=== PATIENT | male | born 1970 | race Asian ===

== ENCOUNTER 2020-03-06 10:36 | Outpatient (REF) | payer BC, SELFPAY | END 2020-03-06 10:37 | disposition home or self-care (01) | LOC: HO.LAB 10:36 | PROVIDERS: Visit Provider Internal Medicine | DX: Z20.822 Contact with and (suspected) exposure to COVID-19 (principal) | CPT/HCPCS: 36415; C9803; U0003 ==

== ENCOUNTER 2020-03-16 19:24 | Emergency (ER) | payer BC, SELFPAY ==
--- NOTE | 2020-03-16 19:43 | ED.GENADULT ---
HPI - General Adult General Stated complaint: Chest pain Time Seen by Provider: 03/16/20 19:43 Related Data Allergies Allergy/AdvReac Type Severity Reaction Status Date / Time Penicillins [PENICILLINS] Allergy Intermediate UNKNOWN Unverified 11/14/19 16:03 Course Course Course Narrative: Rapid medical assessment on arrival to ED - 50 y/o with no medial history (hasn't been to PCP presenting with intermittent left sided chest pain that radiates to left forearm and feeling his heart was pausing. Hx similar episodes with negative cardiac workup. Will order EKG, trop and labs. Management per primary provider.
--- NOTE | 2020-03-16 19:47 | ECG_ITS ---
Test Reason : CP Blood Pressure : / mmHG Vent. Rate : 091 BPM Atrial Rate : 091 BPM P-R Int : 134 ms QRS Dur : 072 ms QT Int : 348 ms P-R-T Axes : 015 003 009 degrees QTc Int : 428 ms Sinus rhythm with occasional Premature ventricular complexes Abnormal ECG When compared with ECG of 30-OCT-2019 20:57, Premature ventricular complexes are now Present Nonspecific T wave abnormality now evident in Anterior leads Referred By: Marce Alvarez Electronically Signed By:CHEYENNE SOLIS
[2020-03-16 19:52] VITALS: BP 154/95; PULSE 75; RESP 18; TEMP 36.8; O2SAT 96; BMI 43.4
--- NOTE | 2020-03-16 19:55 | XR_ITS ---
EXAMINATION: PORTABLE CHEST 1 VIEW CLINICAL INFORMATION: left sided chest pain . COMPARISON: 05/02/2019. TECHNIQUE: Portable frontal view of the chest was obtained. FINDINGS: The lungs are well expanded. No focal infiltrate, effusion, edema, or pneumothorax. Cardiac and mediastinal silhouettes are within normal limits for technique. No acute bony abnormality seen. Incidental left cervical rib. XR/XR chest 1V IMPRESSION: No evidence of acute disease.
[2020-03-16 22:00] LABS: Basophils Percent Auto 0.2 % (0-2); Eosinophils Absolute Auto 0.1 X10*3/uL (0.0-0.4); Eosinophils Percent Auto 1.2 % (0-4); Hematocrit 44.5 % (42-52); Hemoglobin 14.7 g/dl (14.0-18.0); Imm Gran Abs Auto 0.06 X10*3/uL (0.00-0.03); Imm Gran Pct Auto 0.7 % (0.0-0.4); Lymphocytes Absolute Auto 1.8 X10*3/uL (1.2-4.9); Lymphocytes Percent Auto 21.8 % (20-40); MANUAL DIFF FLAG NO; Mean Corpuscular Hemoglobin 29.2 pg (27.0-33.0); Mean Corpuscular Volume 88.5 fL (80-98); Mean Platelet Volume 10.3 fL (9.4-12.4); Monocytes Absolute Auto 0.8 X10*3/uL (0.1-1.2); Monocytes Percent Auto 9.5 % (2-11); Neutrophils Absolute Auto 5.5 X10*3/uL (2.0-8.3); Neutrophils Percent Auto 66.6 % (45-73); Platelet Count 228 X10*3/uL (160-400); Red Blood Count 5.03 X10*6/uL (4.60-5.80); Red Cell Distribution Width 12.8 % (11.0-16.0); White Blood Count 8.3 X10*3/uL (4.8-10.8)
[2020-03-16 22:02] LABS: Glucose Urine UA NEG (NEG); Leukocyte Esterase Urine NEG (NEG); Nitrite Urine NEG (NEG); PH 6.5 (5.0-8.0); Specific Gravity - Urine 1.025 (1.005-1.025); Urine Blood NEG (NEG); Urine Ketones NEG (NEG); Urine Protein NEG (NEG-TRACE)
[2020-03-16 22:05] LABS: Appearance Urine CLEAR; Color Urine YELLOW
[2020-03-16 22:09] LABS: Prothrombin Time 12.3 SEC (10.8-13.0)
[2020-03-16 22:12] LABS: Partial Thromboplastin Time 35.5 SEC (24.1-38.0)
[2020-03-16 22:13] LABS: Amphetamine Screen Urine Not Detected (Not Detect); Barbiturates, Urine Not Detected (Not Detect); Benzodiazepines Screen Urine Not Detected (Not Detect); Cannabinoid Screen Urine Not Detected (Not Detect); Cocaine Screen Urine Not Detected (Not Detect); Opiate Screen Urine Not Detected (Not Detect); Phencyclidine Screen Urine Not Detected (Not Detect)
--- NOTE | 2020-03-16 22:21 | ED.CHESTPAIN ---
HPI - Chest Pain General Chief Complaint: Chest Pain Stated Complaint: Chest pain Time Seen by Provider: 03/16/20 19:43 Source: patient Mode of arrival: ambulatory History of Present Illness HPI narrative: This is a 50-year-old male who has been being treated for left shoulder pain as well as C8/T1 radicular pain and presents this evening with onset an isolated episode sharp spasming at the left anterior chest that lasted approximately ?a few seconds? and was not associated nausea, dizziness, radiation, shortness of breath. Patient states that he then had his lay her head on his chest to listen to his heart and that she noted his heart has skipped to be. Patient denies any other medical problems. Otherwise, patient has no other acute complaints and denies any fevers, chills, GI symptoms symptoms Related Data Allergies Allergy/AdvReac Type Severity Reaction Status Date / Time Penicillins [PENICILLINS] Allergy Intermediate UNKNOWN Verified 03/16/20 19:52 Review of Systems Review of Systems: Pertinent positives negatives as stated in HPI review of systems otherwise negative [facility] Past Medical History Source: nursing notes reviewed Social History Social History Advance Directives: No Physical Exam Vital Signs: Vital Signs: Last Vital Signs Temp 98.2 F 03/16/20 19:52 Pulse 75 03/16/20 19:52 Resp 18 03/16/20 19:52 BP 154/95 H 03/16/20 19:52 Pulse Ox 96 03/16/20 19:52 Body Mass Index 43.4 VITAL SIGNS: Reviewed. GENERAL: Well developed, well nourished, in no acute distress. NOSE: Nares patent bilateral OROPHARYNX: no oral lesions noted, posterior pharynx clear NECK: Supple, no adenopathy LUNGS: Normal breath sounds, left chest wall without tenderness on palpation. SpO2<96> CARDIOVASCULAR: Regular rate and rhythm without noted murmurs, no JVD or lower extremity edema. ABDOMEN: Obese, Soft, non-tender, non-distended with bowel sounds. No rigidity. No guarding. No palpable masses or hernias noted NEUROLOGIC: Alert and oriented x 4. Course Course Course Narrative: This is a 50-year-old male with history and clinical presentation most consistent with a costochondritis, however will pneumonia, cardiac infectious etiologies. Review of all investigations cardiac ischemia, pneumonia, infection, anemia, and chest x-ray is otherwise negative evidence alternative etiologies. Results findings were discussed and refers physician by phone tomorrow and encouraged to use Tylenol or ibuprofen should it recur. MDM - Chest Pain Lab Data Result diagrams: 03/16/20 21:51 03/16/20 21:51 Labs: Lab Results 03/16/20 03/16/20 03/16/20 Range/Units 21:51 21:51 21:51 WBC 8.3 (4.8-10.8) X10*3/uL RBC 5.03 (4.60-5.80) X10*6/uL Hgb 14.7 (14.0-18.0) g/dl Hct 44.5 (42-52) % MCV 88.5 (80-98) fL MCH 29.2 (27.0-33.0) pg MCHC 33.0 (31.0-36.0) g/dl RDW 12.8 (11.0-16.0) % Plt Count 228 (160-400) X10*3/uL MPV 10.3 (9.4-12.4) fL Immature Gran % (Auto) 0.7 H (0.0-0.4) % Neut % (Auto) 66.6 (45-73) % Lymph % (Auto) 21.8 (20-40) % [place] % (Auto) 9.5 (2-11) % Eos % (Auto) 1.2 (0-4) % Baso % (Auto) 0.2 (0-2) % Lymph # (Auto) 1.8 (1.2-4.9) X10*3/uL [place] # (Auto) 0.8 (0.1-1.2) X10*3/uL Eos # (Auto) 0.1 (0.0-0.4) X10*3/uL Baso # (Auto) 0.0 (0.0-0.2) X10*3/uL Abs Immat Gran (auto) 0.06 H (0.00-0.03) X10*3/uL Absolute Neuts (auto) 5.5 (2.0-8.3) X10*3/uL Absolute Nucleated RBC 0.000 (0.0-0.012) X10*3/uL Nucleated RBC % (auto) 0.0 (0.0-0.2) /100WBC PT 12.3 (10.8-13.0) SEC INR 1.0 (0.9-1.1) APTT 35.5 (24.1-38.0) SEC Hold Blue Top SEE NOTE Sodium 141 (135-145) mmol/L Potassium 4.8 (3.3-5.1) mmol/l Chloride 105 (96-108) mmol/L Carbon Dioxide 28 (22-29) mmol/L Anion Gap 13 (12-20) BUN 19 H (9-16) mg/dL Creatinine 0.96 (0.5-1.4) mg/dL Estim Creat Clear Calc 134.7 Estimated GFR > 60 Random Glucose 124 H (60-115) mg/dL Calcium 9.3 (8.4-10.2) mg/dL Magnesium 2.0 (1.6-2.6) mg/dL Total Bilirubin 0.4 (0.0-1.0) mg/dL Direct Bilirubin 0.2 (0.0-0.5) mg/dL AST 24 (5-37) U/L ALT 38 (0-40) U/L Alkaline Phosphatase 97 (39-117) U/L Troponin I High Sens (<3.5-35.0) ng/L B-Natriuretic Peptide (<100) pg/mL Total Protein 7.0 (6.5-8.0) g/dL Albumin 4.2 (3.5-5.0) g/dL Urine Color Urine Appearance Urine pH (5.0-8.0) Ur Specific [place] (1.005-1.025) Urine Protein (NEG-TRACE) MG/DL Urine Glucose (UA) (NEG) MG/DL Urine Ketones (NEG) MG/DL Urine Blood (NEG) Urine Nitrite (NEG) Ur Leukocyte Esterase (NEG) Urine Opiates Screen (Not Detect) Ur Barbiturates Screen (Not Detect) Ur Phencyclidine Scrn (Not Detect) Ur Amphetamines Screen (Not Detect) U Benzodiazepines Scrn (Not Detect) Urine Cocaine Screen (Not Detect) U Marijuana (THC) Screen (Not Detect) 03/16/20 03/16/20 03/16/20 Range/Units 21:51 21:51 21:51 WBC (4.8-10.8) X10*3/uL RBC (4.60-5.80) X10*6/uL Hgb (14.0-18.0) g/dl Hct (42-52) % MCV (80-98) fL MCH (27.0-33.0) pg MCHC (31.0-36.0) g/dl RDW (11.0-16.0) % Plt Count (160-400) X10*3/uL MPV (9.4-12.4) fL Immature Gran % (Auto) (0.0-0.4) % Neut % (Auto) (45-73) % Lymph % (Auto) (20-40) % [place] % (Auto) (2-11) % Eos % (Auto) (0-4) % Baso % (Auto) (0-2) % Lymph # (Auto) (1.2-4.9) X10*3/uL [place] # (Auto) (0.1-1.2) X10*3/uL Eos # (Auto) (0.0-0.4) X10*3/uL Baso # (Auto) (0.0-0.2) X10*3/uL Abs Immat Gran (auto) (0.00-0.03) X10*3/uL Absolute Neuts (auto) (2.0-8.3) X10*3/uL Absolute Nucleated RBC (0.0-0.012) X10*3/uL Nucleated RBC % (auto) (0.0-0.2) /100WBC PT (10.8-13.0) SEC INR (0.9-1.1) APTT (24.1-38.0) SEC Hold Blue Top Sodium (135-145) mmol/L Potassium (3.3-5.1) mmol/l Chloride (96-108) mmol/L Carbon Dioxide (22-29) mmol/L Anion Gap (12-20) BUN (9-16) mg/dL Creatinine (0.5-1.4) mg/dL Estim Creat Clear Calc Estimated GFR Random Glucose (60-115) mg/dL Calcium (8.4-10.2) mg/dL Magnesium (1.6-2.6) mg/dL Total Bilirubin (0.0-1.0) mg/dL Direct Bilirubin (0.0-0.5) mg/dL AST (5-37) U/L ALT (0-40) U/L Alkaline Phosphatase (39-117) U/L Troponin I High Sens < 3.5 (<3.5-35.0) ng/L B-Natriuretic Peptide < 10 (<100) pg/mL Total Protein (6.5-8.0) g/dL Albumin (3.5-5.0) g/dL Urine Color YELLOW Urine Appearance CLEAR Urine pH 6.5 (5.0-8.0) Ur Specific [place] 1.025 (1.005-1.025) Urine Protein NEG (NEG-TRACE) MG/DL Urine Glucose (UA) NEG (NEG) MG/DL Urine Ketones NEG (NEG) MG/DL Urine Blood NEG (NEG) Urine Nitrite NEG (NEG) Ur Leukocyte Esterase NEG (NEG) Urine Opiates Screen Not Detected (Not Detect) Ur Barbiturates Screen Not Detected (Not Detect) Ur Phencyclidine Scrn Not Detected (Not Detect) Ur Amphetamines Screen Not Detected (Not Detect) U Benzodiazepines Scrn Not Detected (Not Detect) Urine Cocaine Screen Not Detected (Not Detect) U Marijuana (THC) Screen Not Detected (Not Detect) Discharge Plan Discharge Clinical Impression: Atypical chest pain, Acute costochondritis Patient Disposition: Home, Self-Care Instructions: Costochondritis (ED), Chest Wall Pain (ED) Additional Instructions: 1. Please resume all home medications as prescribed new line 2. Tylenol 1000 mg, orally, every 6 hours as needed pain control. Do not exceed 4000 mg in 24 hours. 3. Ibuprofen 400 mg, orally with milk or food, every 6 hours as needed pain. 4. Consider using [id number] lidocaine patches, these are available in every [facility], apply to area of maximal tenderness as directed by packaging. Do not hesitate to return to this emergency department if you experience worsening symptoms. Referrals: Physician,None [Primary Care Provider] - 2 days (For evaluation of suspected costochondritis)
[2020-03-16 22:33] LABS: B Type Natriuretic Peptide < 10 pg/mL (<100); Troponin-I High Sensitivity < 3.5 ng/L (<3.5-35.0)
[2020-03-16 22:43] LABS: Alanine Aminotransferase 38 U/L (0-40); Albumin Level 4.2 g/dL (3.5-5.0); Alkaline Phosphatase 97 U/L (39-117); Anion Gap 13 (12-20); Aspartate Amino Transferase 24 U/L (5-37); Bilirubin Direct 0.2 mg/dL (0.0-0.5); Bilirubin Total 0.4 mg/dL (0.0-1.0); Blood Urea Nitrogen 19 mg/dL (9-16); Calcium 9.3 mg/dL (8.4-10.2); Carbon Dioxide 28 mmol/L (22-29); Chloride 105 mmol/L (96-108); Creatinine Clr Calc Pharmacy 134.7; Estimated Glomerular Filt Rate > 60; Glucose Random 124 mg/dL (60-115); Potassium 4.8 mmol/l (3.3-5.1); Sodium 141 mmol/L (135-145)
== END 2020-03-16 23:31 | disposition home or self-care (01) ==
PROVIDERS: Physician Assistant; Emergency Provider Student in an Organized Health Care Education/Training Program
DX: R07.89 Other chest pain (principal); M94.0 Chondrocostal junction syndrome [Tietze]
CPT/HCPCS: 36415; 71045; 80048; 80076; 80307; 81003; 83735; 83880; 84484; 85025; 85610; 85730; 93005; 99283

== ENCOUNTER 2021-06-09 06:34 | Outpatient (REF) | payer BC, SELFPAY ==
[2021-06-09 07:02] LABS: MANUAL DIFF FLAG NO
[2021-06-09 07:28] LABS: Basophils Percent Auto 0.1 % (0-2); Eosinophils Absolute Auto 0.1 X10*3/uL (0.0-0.4); Eosinophils Percent Auto 1.1 % (0-4); Hematocrit 45.6 % (42.0-52.0); Hemoglobin 15.5 g/dl (14.0-18.0); Imm Gran Abs Auto 0.04 X10*3/uL (0.00-0.03); Imm Gran Pct Auto 0.5 % (0.0-0.4); Lymphocytes Absolute Auto 2.4 X10*3/uL (1.2-4.9); Lymphocytes Percent Auto 32.8 % (20-40); Mean Corpuscular Hemoglobin 28.8 pg (27.0-33.0); Mean Corpuscular Volume 84.6 fL (80.0-98.0); Mean Platelet Volume 10.6 fL (9.4-12.4); Monocytes Absolute Auto 0.5 X10*3/uL (0.1-1.2); Monocytes Percent Auto 6.9 % (2-11); Neutrophils Absolute Auto 4.3 x10*3/uL (2.0-8.3); Neutrophils Percent Auto 58.6 % (45-73); Platelet Count 226 X10*3/uL (160-400); Red Blood Count 5.39 X10*6/uL (4.60-5.80); Red Cell Distribution Width 12.8 % (11.0-16.0); White Blood Count 7.3 X10*3/uL (4.8-10.8)
[2021-06-09 07:43] LABS: Alanine Aminotransferase 44 U/L (0-40); Albumin Level 4.2 g/dL (3.5-5.0); Alkaline Phosphatase 128 U/L (39-117); Anion Gap 12 (12-20); Aspartate Amino Transferase 24 U/L (5-37); Bilirubin Total 1.2 mg/dL (0.0-1.0); Blood Urea Nitrogen 13 mg/dL (9-16); Calcium 9.5 mg/dL (8.4-10.2); Carbon Dioxide 28 mmol/L (22-29); Chloride 101 mmol/L (96-108); Cholesterol 232 mg/dL; Estimated Glomerular Filt Rate > 60; Glucose Fasting 303 mg/dL (60-99); HDL Cholesterol 42 mg/dL; LDL Cholesterol Calculated 145 mg/dl; Potassium 4.6 mmol/L (3.3-5.1); Sodium 136 mmol/L (135-145); Total Protein 7.2 g/dL (6.5-8.0); Triglycerides 225 mg/dL
[2021-06-09 08:07] LABS: Prostate Specific Antigen Scr 0.19 ng/mL (<0.05-4.0); TSH reflex Free T4 0.66 uIU/mL (0.32-4.0); Vitamin D 25-OH Total 100.1 ng/mL (>30)
[2021-06-09 09:18] LABS: Appearance Urine CLEAR; Color Urine YELLOW; Glucose Urine UA >=1000 MG/DL (NEG); Leukocyte Esterase Urine NEG (NEG); Nitrite Urine NEG (NEG); Specific Gravity - Urine 1.025 (1.005-1.025); UACC Culture Trigger NO; Urine Blood TRACE (NEG); Urine Ketones NEG (NEG); Urine Protein NEG (NEG-TRACE)
== END 2021-06-09 06:35 | disposition home or self-care (01) ==
LOC: HO.LAB 06:34
PROVIDERS: PCP Internal Medicine; Visit Provider Internal Medicine
DX: Z00.00 Encounter for general adult medical examination without abnormal findings (principal); E66.01 Morbid (severe) obesity due to excess calories; E55.9 Vitamin D deficiency, unspecified; Z68.43 Body mass index [BMI] 50.0-59.9, adult; Z12.5 Encounter for screening for malignant neoplasm of prostate
CPT/HCPCS: 36415; 80053; 80061; 81001; 81003; 82306; 84153; 84443; 85025

== ENCOUNTER 2021-07-21 08:34 | Outpatient (REF) | payer BC, SELFPAY ==
[2021-07-21 09:44] LABS: MANUAL DIFF FLAG NO
[2021-07-21 11:05] LABS: Basophils Percent Auto 0.1 % (0-2); Eosinophils Absolute Auto 0.1 X10*3/uL (0.0-0.4); Eosinophils Percent Auto 0.9 % (0-4); Hematocrit 44.1 % (42.0-52.0); Hemoglobin 15.3 g/dl (14.0-18.0); Imm Gran Abs Auto 0.04 X10*3/uL (0.00-0.03); Imm Gran Pct Auto 0.6 % (0.0-0.4); Lymphocytes Percent Auto 30.3 % (20-40); Mean Corpuscular HGB Conc 34.7 g/dl (31.0-36.0); Mean Corpuscular Hemoglobin 28.8 pg (27.0-33.0); Mean Corpuscular Volume 83.1 fL (80.0-98.0); Mean Platelet Volume 11.7 fL (9.4-12.4); Monocytes Absolute Auto 0.5 X10*3/uL (0.1-1.2); Neutrophils Absolute Auto 4.1 x10*3/uL (2.0-8.3); Neutrophils Percent Auto 61.1 % (45-73); Platelet Count 219 X10*3/uL (160-400); Red Blood Count 5.31 X10*6/uL (4.60-5.80); Red Cell Distribution Width 12.5 % (11.0-16.0); White Blood Count 6.7 X10*3/uL (4.8-10.8)
[2021-07-21 11:27] LABS: Hemoglobin A1c % > 14.0 %
[2021-07-21 11:41] LABS: Bilirubin Direct 0.4 mg/dL (0.0-0.5)
[2021-07-21 11:53] LABS: Thyroid Stimulating Hormone 1.04 uIU/mL (0.32-4.0)
== END 2021-07-21 08:35 | disposition home or self-care (01) ==
LOC: HO.LAB 08:34
PROVIDERS: PCP Internal Medicine; Referring Provider Internal Medicine; Visit Provider Physician Assistant
DX: Z01.818 Encounter for other preprocedural examination (principal); E66.01 Morbid (severe) obesity due to excess calories; Z68.43 Body mass index [BMI] 50.0-59.9, adult; K52.9 Noninfective gastroenteritis and colitis, unspecified; R03.0 Elevated blood-pressure reading, without diagnosis of hypertension
CPT/HCPCS: 36415; 82248; 83036; 84443; 85025

== ENCOUNTER 2021-07-23 11:31 | Emergency (ER) | payer BC, SELFPAY ==
--- NOTE | ~2021-07-23 | XR_ITS ---
EXAMINATION: XR CHEST CLINICAL INFORMATION: Chest pain COMPARISON: Previous chest x-rays most recent February 2020 TECHNIQUE: Frontal view of the chest was obtained. FINDINGS: The cardiac and mediastinal contours are normal. The lungs are clear. There is no pleural effusion or pneumothorax. There are degenerative changes of the spine. XR/XR chest 1V IMPRESSION: No evidence for acute disease in the chest.
--- NOTE | 2021-07-23 11:46 | ECG_ITS ---
Test Reason : cp Blood Pressure : / mmHG Vent. Rate : 090 BPM Atrial Rate : 090 BPM P-R Int : 148 ms QRS Dur : 078 ms QT Int : 344 ms P-R-T Axes : 014 003 003 degrees QTc Int : 420 ms Normal sinus rhythm with sinus arrhythmia Normal ECG When compared with ECG of 16-MAR-2020 19:49, Premature ventricular complexes are no longer Present Referred By: Generic ED Physician Electronically Signed By:Kenny Roa
[2021-07-23 11:48] VITALS: BP 117/86; PULSE 99; RESP 20; TEMP 36.1; O2SAT 96; BMI 50.2
[2021-07-23 12:15] LABS: MANUAL DIFF FLAG NO
[2021-07-23 12:20] LABS: Basophils Percent Auto 0.3 % (0-2); Eosinophils Absolute Auto 0.1 X10*3/uL (0.0-0.4); Eosinophils Percent Auto 0.8 % (0-4); Hematocrit 43.5 % (42.0-52.0); Hemoglobin 15.3 g/dl (14.0-18.0); Imm Gran Abs Auto 0.04 X10*3/uL (0.00-0.03); Imm Gran Pct Auto 0.6 % (0.0-0.4); Lymphocytes Percent Auto 30.2 % (20-40); Mean Corpuscular HGB Conc 35.2 g/dl (31.0-36.0); Mean Corpuscular Hemoglobin 29.7 pg (27.0-33.0); Mean Corpuscular Volume 84.3 fL (80.0-98.0); Mean Platelet Volume 11.1 fL (9.4-12.4); Monocytes Absolute Auto 0.5 X10*3/uL (0.1-1.2); Monocytes Percent Auto 7.6 % (2-11); Neutrophils Percent Auto 60.5 % (45-73); Platelet Count 203 X10*3/uL (160-400); Red Blood Count 5.16 X10*6/uL (4.60-5.80); Red Cell Distribution Width 12.6 % (11.0-16.0); White Blood Count 6.6 X10*3/uL (4.8-10.8)
[2021-07-23 12:35] LABS: Anion Gap 13 (12-20); Blood Urea Nitrogen 13 mg/dL (9-16); Calcium 9.5 mg/dL (8.4-10.2); Carbon Dioxide 23 mmol/L (22-29); Chloride 101 mmol/L (96-108); Creatinine Clr Calc Pharmacy 145.2; Estimated Glomerular Filt Rate > 60; Glucose Random 333 mg/dL (60-115); Potassium 4.2 mmol/L (3.3-5.1); Sodium 133 mmol/L (135-145)
[2021-07-23 12:46] LABS: Troponin-I High Sensitivity < 3.5 ng/L (<3.5-35.0)
--- NOTE | 2021-07-23 16:38 | ED.CHESTPAIN ---
HPI - Chest Pain General Chief Complaint: Chest Pain Stated Complaint: chest pains Time Seen by Provider: 07/23/21 15:41 Source: patient Mode of arrival: ambulatory Limitations: no limitations History of Present Illness HPI narrative: 51 years old male came in for evaluation of left-sided chest pain. Patient was scheduled for colonoscopy by his manager electrical the pre procedure workup showed that the patient has new onset diabetes, high cholesterol, hypertension, patient was placed on lisinopril and metformin with Lipitor started 1 day ago, patient feels anxious about his new diagnosis, been getting intermittent left-sided facial headache, left-sided chest pain, left shoulder stiffness and left upper back stiffness all started since yesterday, symptoms is intermittent, triggered by feeling anxious and thinking about his medical condition. Patient's symptoms did not trigger with exertion. Related Data Previous Rx's Medication Instructions Recorded atorvastatin 10 mg tablet 10 mg PO BEDTIME #90 tab 07/22/21 blood sugar diagnostic (FreeStyle #100 ea 07/22/21 Lite Strips) blood-glucose meter (FreeStyle #1 ea 07/22/21 Lite Meter) lancets 30 gauge (BD Ultra-Fine II #100 ea 07/22/21 Lancets) lisinopril 5 mg tablet 5 mg PO DAILY #90 tab 07/22/21 metformin 500 mg tablet 500 mg PO BID #180 tab 07/22/21 Allergies Allergy/AdvReac Type Severity Reaction Status Date / Time Penicillins [PENICILLINS] Allergy Intermediate UNKNOWN Verified 07/21/21 08:41 Review of Systems Review of Systems: All other systems are reviewed and are negative Constitutional: Reports as per HPI and Reports no additional constitutional complaints Eyes: Reports as per HPI and Reports no additional eye complaints Reports system reviewed and no additional complaints, except as documented Cardiovascular: Reports as per HPI and Reports no additional cardiovascular complaints Respiratory: Reports as per HPI and Reports no additional respiratory complaints Gastrointestinal: Reports as per HPI and Reports no additional gastrointestinal complaints Genitourinary: Reports no additional female genitourinary complaints Musculoskeletal: Reports no additional musculoskeletal complaints Skin/Breast: Reports system reviewed and no additional complaints, except as docu Psychiatric: Reports no additional psychiatric complaints Endocrine: Reports no additional endocrine complaints Hematologic/Lymphatic: Reports no additional hematologic/lymphatic complaints Allergic/Immunologic: Reports no additional allergic/immunologic complaints Reports system reviewed and no additional complaints, except as documented and Reports Abnormal speech present [facility] Past Medical History Medical History Benign essential hypertension Diabetes mellitus Morbid obesity with BMI of 50.0-59.9, adult Pure hypercholesterolemia Surgical History No pertinent past surgical history Family History Family History Mother Diabetes CHF (congestive heart failure) High blood pressure Father No problems noted. Other Substance abuse Social History Social History Housing: House Alcohol intake: current Alcohol intake frequency: holidays/special occasions only Patient Tobacco Use Status: Former Tobacco user Second Hand Smoke Exposure: Yes Advance Directives: No Advance Directives Information Provided: No service: No Current occupational status: employed Cognitive needs: No Hearing needs: No Vision needs: Yes Physical Exam Vital Signs: Vital Signs: Last Vital Signs Temp 97.0 F 07/23/21 11:48 Pulse 99 07/23/21 11:48 Resp 20 07/23/21 11:48 BP 117/86 07/23/21 11:48 Pulse Ox 96 07/23/21 11:48 BMI result Body Mass Index 50.2 Vital signs have been reviewed as appeared to be correct. Blood pressure normal. Heart rate normal. Respiration rate normal. Temperature normal. Oxygen saturation normal. Appearance: Alert. Oriented X3. No acute distress. Head: Normal external exam. Normocephalic. Atraumatic. No [place] signs noted. No raccoon eyes noted Eyes: PERRLA. EOMI. Conjunctiva and sclera normal. Eyelids normal. ENT: TM's Normal. Pharynx normal. Uvula midline. Moist mucous membranes. No trismus noted. No drooling noted. No muffled voice noted. Neck: Normal inspection. Neck supple. FROM. No adenopathy. Thyroid Normal. No meningeal signs. No neck mass noted. CVS: Normal heart rate and rhythm. Heart sound normal. No murmurs noted. Pulses normal throughout. Respiratory: No respiratory distress. Painless inspiration. Breath sounds normal. No wheezes/rales/rhonchi noted. Chest nontender. No accessory muscle usage noted or decreased air movement noted. Abdomen: Soft and nontender. Bowel sounds normal in all 4 quadrants. No distention noted. No organomegaly noted. No visible injury noted. Back: No CVA tenderness. Full range of motion noted. Skin: Skin warm and dry. Normal skin color. Normal skin turgor. No rashes/lesions/lacerations noted. Extremities: No lower extremity edema. Extremities exhibit normal range of motion. Extremities nontender. Neuro: Oriented X 3. Cranial nerve exam: II-XII are grossly intact No motor deficit. No sensory deficit. Reflexes normal. Course Course Course Narrative: Assessment and plan. 51-year-old male came in with multiple complaints for 1 day since he knew about his new diagnosis of DM/hyper cholesterolemia/HTN. Patient with HEART score of 3. Currently patient is asymptomatic patient was reassured to follow up with his PCP and GI to reschedule his colonoscopy appointment. MDM - Chest Pain Medical Records Data Attestation: I reviewed the patient's medical records. Lab Data Attestation: I reviewed the patient's lab results. Result diagrams: 07/23/21 12:11 07/23/21 12:11 Labs: Lab Results 07/23/21 07/23/21 07/23/21 Range/Units 12:11 12:11 12:11 WBC 6.6 (4.8-10.8) X10*3/uL RBC 5.16 (4.60-5.80) X10*6/uL Hgb 15.3 (14.0-18.0) g/dl Hct 43.5 (42.0-52.0) % MCV 84.3 (80.0-98.0) fL MCH 29.7 (27.0-33.0) pg MCHC 35.2 (31.0-36.0) g/dl RDW 12.6 (11.0-16.0) % Plt Count 203 (160-400) X10*3/uL MPV 11.1 (9.4-12.4) fL Immature Gran % (Auto) 0.6 H (0.0-0.4) % Neut % (Auto) 60.5 (45-73) % Lymph % (Auto) 30.2 (20-40) % [place] % (Auto) 7.6 (2-11) % Eos % (Auto) 0.8 (0-4) % Baso % (Auto) 0.3 (0-2) % Lymph # (Auto) 2.0 (1.2-4.9) X10*3/uL [place] # (Auto) 0.5 (0.1-1.2) X10*3/uL Eos # (Auto) 0.1 (0.0-0.4) X10*3/uL Baso # (Auto) 0.0 (0.0-0.2) X10*3/uL Abs Immat Gran (auto) 0.04 H (0.00-0.03) X10*3/uL Absolute Neuts (auto) 4.0 (2.0-8.3) x10*3/uL Absolute Nucleated RBC 0.000 (0.0-0.012) X10*3/uL Nucleated RBC % (auto) 0.0 (0.0-0.2) /100WBC Sodium 133 L (135-145) mmol/L Potassium 4.2 (3.3-5.1) mmol/L Chloride 101 (96-108) mmol/L Carbon Dioxide 23 (22-29) mmol/L Anion Gap 13 (12-20) BUN 13 (9-16) mg/dL Creatinine 0.93 (0.5-1.4) mg/dL Estim Creat Clear Calc 145.2 Estimated GFR > 60 Random Glucose 333 H D (60-115) mg/dL Calcium 9.5 (8.4-10.2) mg/dL Troponin I High Sens < 3.5 (<3.5-35.0) ng/L Imaging Data Chest x-ray: Attestation: I personally reviewed and interpreted this imaging study as follows: Radiologist's impression: No evidence for acute disease in the chest. ECG Data ECG #1: Attestation: I personally reviewed and interpreted this ECG as follows: Interpretation: Normal sinus rhythm at 90 beats per minutes, normal intervals, no ST-T changes. Discharge Plan Discharge Clinical Impression: Atypical chest pain, Anxiety about health Patient Disposition: Home, Self-Care Instructions: Anxiety (ED) Prescriptions: No Action atorvastatin 10 mg tablet 10 mg PO BEDTIME Qty: 90 0RF (DME) FreeStyle Lite Strips Strip See Rx Instructions .Route Qty: 100 0RF Rx Instructions: Test Daily (DME) blood-glucose meter [FreeStyle Lite Meter] Kit See Rx Instructions .Route Qty: 1 0RF Rx Instructions: Test Daily (DME) lancets [BD Ultra-Fine II Lancets] 30 gauge misc See Rx Instructions .Route Qty: 100 0RF Rx Instructions: Test Daily lisinopril 5 mg tablet 5 mg PO DAILY Qty: 90 0RF metformin 500 mg tablet 500 mg PO BID Qty: 180 0RF Referrals: Jarod Kate MD [Primary Care Provider] - Stand Alone Forms: Work/School Release
[2021-07-23 17:17] VITALS: BP 131/99; PULSE 95; O2SAT 96
== END 2021-07-23 17:18 | disposition home or self-care (01) ==
LOC: HO.ED 17:00
PROVIDERS: Emergency Provider Emergency Medicine; PCP Internal Medicine
DX: R07.89 Other chest pain (principal); F41.9 Anxiety disorder, unspecified; Z72.89 Other problems related to lifestyle; E11.9 Type 2 diabetes mellitus without complications; I10 Essential (primary) hypertension; E78.5 Hyperlipidemia, unspecified; Z79.02 Long term (current) use of antithrombotics/antiplatelets; Z79.899 Other long term (current) drug therapy
CPT/HCPCS: 36415; 71045; 80048; 84484; 85025; 93005; 99283; 99284

== ENCOUNTER 2021-10-23 07:11 | Outpatient (REF) | payer BC, SELFPAY ==
[2021-10-23 07:55] LABS: Hematocrit 46.3 % (42.0-52.0); Hemoglobin 15.5 g/dl (14.0-18.0); Mean Corpuscular HGB Conc 33.5 g/dl (31.0-36.0); Mean Corpuscular Hemoglobin 29.1 pg (27.0-33.0); Mean Corpuscular Volume 86.9 fL (80.0-98.0); Mean Platelet Volume 10.5 fL (9.4-12.4); Platelet Count 219 X10*3/uL (160-400); Red Blood Count 5.33 X10*6/uL (4.60-5.80); Red Cell Distribution Width 12.9 % (11.0-16.0); White Blood Count 8.5 X10*3/uL (4.8-10.8)
[2021-10-23 08:05] LABS: Estimated Average Glucose 154 mg/dL
[2021-10-23 08:27] LABS: Alanine Aminotransferase 27 U/L (0-40); Albumin Level 4.5 g/dL (3.5-5.0); Alkaline Phosphatase 82 U/L (39-117); Anion Gap 15 (12-20); Aspartate Amino Transferase 20 U/L (5-37); Bilirubin Total 1.2 mg/dL (0.0-1.0); Blood Urea Nitrogen 23 mg/dL (9-16); Calcium 9.5 mg/dL (8.4-10.2); Carbon Dioxide 28 mmol/L (22-29); Chloride 102 mmol/L (96-108); Estimated Glomerular Filt Rate > 60; Glucose Fasting 101 mg/dL (60-99); Potassium 4.8 mmol/L (3.3-5.1); Sodium 140 mmol/L (135-145); Total Protein 7.5 g/dL (6.5-8.0)
[2021-10-23 08:49] LABS: TSH reflex Free T4 0.82 uIU/mL (0.32-4.0)
== END 2021-10-23 07:12 | disposition home or self-care (01) ==
LOC: HO.LAB 07:11
PROVIDERS: PCP Physician Assistant; Visit Provider Physician Assistant
DX: E11.65 Type 2 diabetes mellitus with hyperglycemia (principal)
CPT/HCPCS: 36415; 80053; 83036; 84443; 85027

== ENCOUNTER 2021-12-16 15:33 | Outpatient (REF) | payer BC, SELFPAY ==
[2021-12-17 14:17] LABS: H Pylori Breath Test Negative (Negative)
== END 2021-12-16 15:34 | disposition home or self-care (01) ==
LOC: HO.LNP 15:33
PROVIDERS: Visit Provider Physician Assistant
DX: A04.8 Other specified bacterial intestinal infections (principal)
CPT/HCPCS: 83013

== ENCOUNTER 2022-03-10 06:11 | Outpatient (REF) | payer BC, SELFPAY ==
[2022-03-10 07:42] LABS: Hemoglobin 15.4 g/dl (14.0-18.0); Mean Corpuscular HGB Conc 32.8 g/dl (31.0-36.0); Mean Corpuscular Hemoglobin 28.4 pg (27.0-33.0); Mean Corpuscular Volume 86.6 fL (80.0-98.0); Mean Platelet Volume 10.3 fL (9.4-12.4); Platelet Count 239 X10*3/uL (160-400); Red Blood Count 5.43 X10*6/uL (4.60-5.80); Red Cell Distribution Width 13.3 % (11.0-16.0); White Blood Count 7.4 X10*3/uL (4.8-10.8)
[2022-03-10 08:07] LABS: Estimated Average Glucose 131 mg/dL; Hemoglobin A1c % 6.2 %
[2022-03-10 08:23] LABS: Alanine Aminotransferase 21 U/L (0-40); Albumin Level 4.4 g/dL (3.5-5.0); Alkaline Phosphatase 85 U/L (39-117); Anion Gap 16 (12-20); Aspartate Amino Transferase 19 U/L (5-37); Bilirubin Total 1.5 mg/dL (0.0-1.0); Blood Urea Nitrogen 20 mg/dL (9-16); Calcium 9.6 mg/dL (8.4-10.2); Carbon Dioxide 27 mmol/L (22-29); Chloride 102 mmol/L (96-108); Cholesterol 151 mg/dL; Estimated Glomerular Filt Rate > 60; Glucose Fasting 99 mg/dL (60-99); HDL Cholesterol 48 mg/dL; LDL Cholesterol Calculated 88 mg/dl; Potassium 4.8 mmol/L (3.3-5.1); Sodium 140 mmol/L (135-145); Total Protein 7.3 g/dL (6.5-8.0); Triglycerides 76 mg/dL
[2022-03-10 08:40] LABS: TSH reflex Free T4 0.82 uIU/mL (0.32-4.0)
[2022-03-10 09:23] LABS: Creatinine Urine 77.92 mg/dL; Microalbum/Creatinine Ratio Ur 7.7 ug/mg cr
== END 2022-03-10 06:12 | disposition home or self-care (01) ==
LOC: HO.LAB 06:11
PROVIDERS: PCP Physician Assistant; Visit Provider Physician Assistant
DX: E11.65 Type 2 diabetes mellitus with hyperglycemia (principal); E78.00 Pure hypercholesterolemia, unspecified; I10 Essential (primary) hypertension
CPT/HCPCS: 36415; 80053; 80061; 82043; 83036; 84443; 85027

== ENCOUNTER 2022-08-01 15:21 | Emergency (ER) | payer BC, SELFPAY | END 2022-08-01 19:29 | disposition left against medical advice (07) | PROVIDERS: Emergency Provider Emergency Medicine; PCP Physician Assistant | DX: M54.9 Dorsalgia, unspecified (principal) ==

== ENCOUNTER 2022-08-02 02:05 | Emergency (ER) | payer BC, SELFPAY ==
--- NOTE | ~2022-08-02 | CT_ITS ---
EXAMINATION: CT ABDOMEN AND PELVIS WITHOUT CONTRAST CLINICAL INFORMATION: Right flank pain and hematuria. COMPARISON: 05/02/2019 CT scan the abdomen and pelvis. TECHNIQUE: Multidetector volumetric imaging was performed from the superior aspect of the liver through the pubic symphysis. Sagittal and coronal reformatted images were obtained on the technologist's workstation. Lack of intravenous and oral contrast limits visceral evaluation. This CT examination was performed using dose optimization techniques as appropriate, variously including the following: *Automated exposure control *Adjustment of mA and/or kV according to patient size (this includes techniques or standardized protocols for targeted exams where dose is matched to indication/reason for exam; i.e. extremities or head) *Use of iterative reconstruction technique DLP: 1088 mGy-cm FINDINGS: LUNG BASES: The visualized lung bases are unremarkable. LIVER, GALLBLADDER, AND BILIARY TREE: Unremarkable. PANCREAS: Unremarkable. SPLEEN: Unremarkable. ADRENAL GLANDS: Bilateral nodular hypertrophy. A client account representative nodule in the left measures 1.5 cm and demonstrates fluid attenuation (image 26, series 3). KIDNEYS AND URETERS: A 0.7 cm calculus is seen in the proximal to mid one third of the right ureter (image 48, series 7). Minimal adjacent infiltrative changes are seen. The distal right ureter is unremarkable. Several punctate to small intrarenal calculi are seen bilaterally. One of the largest is seen in the lower pole the left kidney measuring 0.4 cm (image 61, series 7). No hydroureteronephrosis. BLADDER: Unremarkable. GASTROINTESTINAL TRACT: The stomach, small bowel and appendix are unremarkable. The colon shows an incidental redundant sigmoid loop without other significant abnormality. ABDOMINAL WALL: Very small fat-containing left inguinal hernia without associated abnormality. LYMPH NODES: Normal. VASCULAR: Unremarkable. PELVIC VISCERA: Unremarkable. OSSEOUS STRUCTURES: Mild multilevel degenerative changes most pronounced in the inferior thoracic spine and L5-S1. No acute/suspicious abnormality. CT/CT abdomen pelvis wo IV con IMPRESSION: 1. 0.7 cm calculus in the proximal to mid one third of the right ureter with minimal adjacent infiltrative changes. No significant hydroureteronephrosis. Several punctate to small nonobstructing intrarenal calculi bilaterally. 2. Bilateral nodular hypertrophy of the adrenal glands is nonspecific, but demonstrates benign features suggesting adrenal adenomas. 3. Very small fat-containing left inguinal hernia without associated abnormality.
[2022-08-02 02:06] VITALS: BP 151/93; PULSE 98; RESP 16; TEMP 36.8; O2SAT 98; BMI 45.7
[2022-08-02 03:10] VITALS: BP 131/82; PULSE 74; RESP 16; TEMP 36.3; O2SAT 98
--- NOTE | 2022-08-02 03:19 | MHC.EDTECH ---
PT BLOOD DRAWN AND URINE SAMPLE COLLECTED AND SENT TO LAB ,VITALS SIGN RE CHECK ,PT BACK IN WAITING ROOM .
[2022-08-02 03:20] LABS: Basophils Percent Auto 0.3 % (0-2); Eosinophils Absolute Auto 0.1 X10*3/uL (0.0-0.4); Eosinophils Percent Auto 1.3 % (0-4); Hematocrit 44.6 % (42.0-52.0); Hemoglobin 14.8 g/dl (14.0-18.0); Imm Gran Abs Auto 0.03 X10*3/uL (0.00-0.03); Imm Gran Pct Auto 0.4 % (0.0-0.4); Lymphocytes Absolute Auto 1.6 X10*3/uL (1.2-4.9); Lymphocytes Percent Auto 21.1 % (20-40); MANUAL DIFF FLAG NO; Mean Corpuscular HGB Conc 33.2 g/dl (31.0-36.0); Mean Corpuscular Hemoglobin 28.7 pg (27.0-33.0); Mean Corpuscular Volume 86.4 fL (80.0-98.0); Mean Platelet Volume 9.7 fL (9.4-12.4); Monocytes Absolute Auto 0.5 X10*3/uL (0.1-1.2); Monocytes Percent Auto 6.1 % (2-11); Neutrophils Absolute Auto 5.4 x10*3/uL (2.0-8.3); Neutrophils Percent Auto 70.8 % (45-73); Platelet Count 219 X10*3/uL (160-400); Red Blood Count 5.16 X10*6/uL (4.60-5.80); Red Cell Distribution Width 12.9 % (11.0-16.0); White Blood Count 7.7 X10*3/uL (4.8-10.8)
[2022-08-02 03:22] LABS: Appearance Urine Clear; Color Urine Yellow; Glucose Urine UA Negative (Negative); Leukocyte Esterase Urine Negative (Negative); Nitrite Urine Negative (Negative); PH 7.5 (5.0-9.0); UMIC TRIGGER UACC YES; Urine Blood Moderate (2+) (Negative); Urine Ketones Negative (Negative); Urine Protein Negative (Neg-Trace)
[2022-08-02 03:25] LABS: Bacteria Urine None Seen (None Seen); Hyaline Casts Urine 0-2 /LPF (0-2); RBC Urine >20 /HPF (0-2); Squamous Epithelial Cell Urine 0-2 /HPF (0-2); WBC Urine 0-5 /HPF (0-5)
[2022-08-02 03:40] LABS: Alanine Aminotransferase 27 U/L (0-40); Albumin Level 4.1 g/dL (3.5-5.0); Alkaline Phosphatase 81 U/L (39-117); Anion Gap 13 (12-20); Aspartate Amino Transferase 18 U/L (5-37); Bilirubin Total 0.7 mg/dL (0.0-1.0); Blood Urea Nitrogen 18 mg/dL (9-16); Calcium 9.3 mg/dL (8.4-10.2); Carbon Dioxide 26 mmol/L (22-29); Chloride 107 mmol/L (96-108); Creatinine Clr Calc Pharmacy 140.5; Estimated Glomerular Filt Rate > 60; Glucose Random 155 mg/dL (60-115); Sodium 141 mmol/L (135-145); Total Protein 6.9 g/dL (6.5-8.0)
--- NOTE | 2022-08-02 07:42 | ED_ITS ---
HPI - Back Pain/Injury General Chief Complaint: Back Pain/Injury Stated Complaint: back pain, no injury Time Seen by Provider: 08/02/22 07:35 Source: patient Mode of arrival: ambulatory Limitations: no limitations History of Present Illness HPI Narrative: 52 yo male with hx of HTN, DM, kidney stones, HLD here with c/o R flank pain and hematuria x 1 week. has passed stones in the past. No fevers, n/v/d or any other issues. He denies trauma to that area. MD elicited complaint: back pain Pertinent past history: kidney stones Onset (ago): week(s) (1) Timing: intermittent Severity: moderate Similar Symptoms Previously: Yes Quality: aching Location: right flank Radiation: abdomen Exacerbating factors: movement Relieving factors: none Context: history of kidney stones Associated symptoms: hematuria Work related injury: No Related Data Previous Rx's Medication Instructions Recorded blood sugar diagnostic (FreeStyle #100 ea 07/22/21 Lite Strips) lancets 30 gauge (BD Ultra-Fine II #100 ea 07/22/21 Lancets) blood-glucose meter (FreeStyle #1 ea 09/02/21 Lite Meter kit) bisacodyl 5 mg tablet,delayed 10 mg PO ONCE colonoscopy prep 1 12/16/21 release (Dulcolax (bisacodyl)) day #2 tabs polyethylene glycol 3350 17 238 g PO ONCE 1 day #238 grams 12/16/21 gram/dose oral powder (Miralax) lisinopril 5 mg tablet 5 mg PO DAILY 90 days #90 tabs 03/02/22 sildenafil 100 mg tablet 100 mg PO DAILY PRN sexual 03/02/22 activity 7 days #7 tabs atorvastatin 10 mg tablet 10 mg PO BEDTIME #90 tabs 07/03/22 metformin 500 mg tablet 500 mg PO BID #180 tabs 07/03/22 morphine 15 mg immediate release 15 mg PO TID PRN pain #10 tabs 08/02/22 tablet ondansetron 4 mg disintegrating 4 mg PO Q8H PRN nausea and 08/02/22 tablet vomiting #20 tabs tamsulosin 0.4 mg capsule 0.4 mg PO DAILY 7 days #7 caps 08/02/22 Allergies Allergy/AdvReac Type Severity Reaction Status Date / Time Penicillins [PENICILLINS] Allergy Intermediate UNKNOWN Verified 03/02/22 10:41 Review of Systems Review of Systems: Constitutional : No Fever, No Chills Cardiovascular : No Chest Pain, No SOB, NoEdema Respiratory : No Cough, No Sputum, No Wheezing Gastrointestinal : no Nausea, no Vomiting, positive Diarrhea, positive abdominal Pain, No Hematochezia, No Melena Genitourinary : No Dysuria, No Urinary Frequency, pos Hematuria, No Urgency Musculoskeletal : No joint pain, No Myalgias, No Joint Swelling Skin : No Skin Lesions, No rash Neuro : No Weakness, No Numbness, No Dizziness, No Headache Psych : No Anxiety/Panic, No Depression All other systems reviewed and are negative. [facility] Past Medical History Attestation statement: The following information was validated with the patient. Medical History Benign essential hypertension Diabetes mellitus Morbid obesity with BMI of 50.0-59.9, adult Pure hypercholesterolemia Surgical History No pertinent past surgical history Family History Family History Mother Diabetes CHF (congestive heart failure) High blood pressure Father No problems noted. Other Substance abuse Social History Social History Housing: House Alcohol intake: never Patient Tobacco Use Status: Former Tobacco user Smoked in Last 30 Days: No e-Cigarette/Vaping Use: Never Used Second Hand Smoke Exposure: Yes Use of substances other than those prescribed or required for medical reasons: No Advance Directives: Yes Advance Directives Information Provided: Yes Advance Directives on File: No service: No Current occupational status: employed Cognitive needs: No Hearing needs: No Vision needs: Yes Physical Exam Vital Signs: Vital Signs: Last Vital Signs Temp 97.4 F 08/02/22 03:10 Pulse 70 08/02/22 08:07 Resp 18 08/02/22 08:07 BP 131/81 08/02/22 08:07 Pulse Ox 100 08/02/22 08:07 O2 Del Method Room Air 08/02/22 08:07 BMI result Body Mass Index 45.7 Appearance: Alert. Oriented X3. No acute distress. Eyes: Pupils equal, round and reactive to light. ENT: Pharynx normal. Neck: Normal inspection. Neck supple. CVS: Normal heart rate and rhythm. Pulses normal. Respiratory: No respiratory distress. Breath sounds normal. Abdomen: Soft and mild R CVA ttp. Skin: Skin warm and dry. Normal skin color. Extremities: No lower extremity edema. Neuro: Oriented X 3. No motor deficit. No sensory deficit. Course Course Course Narrative: no sig pain can follow up with urology no UTI, normal kidney function Medical Decision Making Medical Decision Making [facility] Narrative: 52 yo male with PMH of HTN, DM, HLD, renal colic hx of kidney stones at this time presents with hematuria and R flank pain x 1 week without associated n/v and fevers. At this time I have no prior US or CT scan imaging avaiable here. He has not had intervention in the past he is not on thinners. Will obtain labs, UA and CT scan for mass/renal colic. He is not toxic appearing. Differential Diagnosis Differential Diagnoses: The differential diagnosis associated with the presentation includes UTI, renal colic, renal cyst, renal mass, MSK strain Lab Data [facility] Lab Attestation statement: I reviewed the patient's lab results. 08/02/22 03:15 08/02/22 03:15 Labs: Lab Results 08/02/22 08/02/22 08/02/22 Range/Units 03:15 03:15 03:15 WBC 7.7 (4.8-10.8) X10*3/uL RBC 5.16 (4.60-5.80) X10*6/uL Hgb 14.8 (14.0-18.0) g/dl Hct 44.6 (42.0-52.0) % MCV 86.4 (80.0-98.0) fL MCH 28.7 (27.0-33.0) pg MCHC 33.2 (31.0-36.0) g/dl RDW 12.9 (11.0-16.0) % Plt Count 219 (160-400) X10*3/uL MPV 9.7 (9.4-12.4) fL Immature Gran % (Auto) 0.4 (0.0-0.4) % Neut % (Auto) 70.8 (45-73) % Lymph % (Auto) 21.1 (20-40) % [place] % (Auto) 6.1 (2-11) % Eos % (Auto) 1.3 (0-4) % Baso % (Auto) 0.3 (0-2) % Lymph # (Auto) 1.6 (1.2-4.9) X10*3/uL [place] # (Auto) 0.5 (0.1-1.2) X10*3/uL Eos # (Auto) 0.1 (0.0-0.4) X10*3/uL Baso # (Auto) 0.0 (0.0-0.2) X10*3/uL Abs Immat Gran (auto) 0.03 (0.00-0.03) X10*3/uL Absolute Neuts (auto) 5.4 (2.0-8.3) x10*3/uL Absolute Nucleated RBC 0.000 (0.0-0.012) X10*3/uL Nucleated RBC % (auto) 0.0 (0.0-0.2) /100WBC Sodium 141 (135-145) mmol/L Potassium 5.0 (3.3-5.1) mmol/L Chloride 107 (96-108) mmol/L Carbon Dioxide 26 (22-29) mmol/L Anion Gap 13 (12-20) BUN 18 H (9-16) mg/dL Creatinine 0.90 (0.5-1.4) mg/dL Estim Creat Clear Calc 140.5 Estimated GFR > 60 Random Glucose 155 H (60-115) mg/dL Calcium 9.3 (8.4-10.2) mg/dL Total Bilirubin 0.7 (0.0-1.0) mg/dL AST 18 (5-37) U/L ALT 27 (0-40) U/L Alkaline Phosphatase 81 (39-117) U/L Total Protein 6.9 (6.5-8.0) g/dL Albumin 4.1 (3.5-5.0) g/dL Urine Color Yellow Urine Appearance Clear Urine pH 7.5 (5.0-9.0) Ur Specific [place] 1.020 (1.005-1.025) Urine Protein Negative (Neg-Trace) mg/dL Urine Glucose (UA) Negative (Negative) mg/dL Urine Ketones Negative (Negative) mg/dL Urine Blood Moderate (2+) H (Negative) Urine Nitrite Negative (Negative) Ur Leukocyte Esterase Negative (Negative) Urine RBC >20 H (0-2) /HPF Urine WBC 0-5 (0-5) /HPF Ur Squamous Epith Cells 0-2 (0-2) /HPF Urine Bacteria None Seen (None Seen) Hyaline Casts 0-2 (0-2) /LPF Independent Interpretation I performed an independent interpretation of an: CT Scan Radiology Impression Discussion of test interpretation with radiology: I have reviewed the radiologist's reading. External Record Review External record reviewed: Inpatient record reviewed ED records and reviewed prior imaging no US or CT scan readily available Prescription Management I considered prescription management with: Pain Medication and Other Chronic Conditions Patient?s care impacted by: Diabetes Discharge Plan Discharge Clinical Impression: Ureterolithiasis Patient Disposition: Home, Self-Care Instructions: Ureteral Stones (ED) Additional Instructions: you have stones in both kidneys but you have a stone in R ureter that will likely need intervention. below is a urologist number please call them today to schedule an appointment I am going to put you on medications until then. return for worsening pain, fevers, vomiting, or any other concerns. stay hydrated. Prescriptions: New tamsulosin 0.4 mg capsule 0.4 mg PO DAILY 7 Days Qty: 7 0RF morphine 15 mg tablet 15 mg PO TID PRN (Reason: pain) Qty: 10 0RF Rx Instructions: partial fill okay; Partial Fill upon patient request. ondansetron 4 mg tablet,disintegrating 4 mg PO Q8H PRN (Reason: nausea and vomiting) Qty: 20 0RF No Action (DME) FreeStyle Lite Strips Strip See Rx Instructions .Route Qty: 100 0RF Rx Instructions: Test Daily (DME) lancets [BD Ultra-Fine II Lancets] 30 gauge misc See Rx Instructions .Route Qty: 100 0RF Rx Instructions: Test Daily (DME) blood-glucose meter [FreeStyle Lite Meter] Kit See Rx Instructions .Route Qty: 1 0RF Rx Instructions: Test Daily metformin 500 mg tablet 500 mg PO BID Qty: 180 0RF atorvastatin 10 mg tablet 10 mg PO BEDTIME Qty: 90 0RF sildenafil 100 mg tablet 100 mg PO DAILY PRN (Reason: sexual activity) 7 Days Qty: 7 0RF lisinopril 5 mg tablet 5 mg PO DAILY 90 Days Qty: 90 1RF bisacodyl [Dulcolax (bisacodyl)] 5 mg tablet,delayed release (DR/EC) 10 mg PO ONCE 1 Days Qty: 2 0RF Rx Instructions: Take 2 tablets by mouth at 12:00pm the day before your procedure. polyethylene glycol 3350 [Miralax] 17 gram/dose powder 238 g PO ONCE 1 Days Qty: 238 0RF Rx Instructions: Take as directed by mouth the day before your procedure. Referrals: Kodi Murray MD [Physician] - 1 day (try to call for soon appointment) Stand Alone Forms: Work/School Release
[2022-08-02 08:07] VITALS: BP 131/81; PULSE 70; RESP 18; O2SAT 100
== END 2022-08-02 11:08 | disposition home or self-care (01) ==
PROVIDERS: Emergency Provider Emergency Medicine; PCP Physician Assistant
DX: N20.2 Calculus of kidney with calculus of ureter (principal); I10 Essential (primary) hypertension; E11.9 Type 2 diabetes mellitus without complications; E78.5 Hyperlipidemia, unspecified; Z79.02 Long term (current) use of antithrombotics/antiplatelets; Z79.84 Long term (current) use of oral hypoglycemic drugs; Z79.899 Other long term (current) drug therapy; Z87.891 Personal history of nicotine dependence
CPT/HCPCS: 36415; 74176; 80053; 81001; 85025; 99284

== ENCOUNTER 2022-08-24 11:44 | Day surgery (SDC) | payer BC, SELFPAY ==
--- NOTE | 2022-08-23 12:36 | HO.ANESPROP2 ---
Documented by User: Sarina Baxter NP 08/23/22 12:37 HPI - Anesthesia Eval Consult details Narrative: 52yo M for Colonoscopy PMFSH Active Problems Active Problems: All Active Problems (Updated 08/03/22 @ 00:00 by Background Dajasbir) RUQ abdominal pain (Acute) Erectile dysfunction (Acute) Low libido (Acute) Obese (Acute) Obese (Acute) Atypical chest pain (Acute) Diabetes mellitus (Acute) Pure hypercholesterolemia (Acute) Benign essential hypertension (Acute) Colon cancer screening (Acute) Morbid obesity with BMI of 50.0-59.9, adult (Acute) Annual physical exam (Acute) Past Medical History Medical History Benign essential hypertension Diabetes mellitus Morbid obesity with BMI of 50.0-59.9, adult Pure hypercholesterolemia Family History Family History Mother Diabetes CHF (congestive heart failure) High blood pressure Father No problems noted. Other Substance abuse Surgical History Surgical History No pertinent past surgical history Social History Social History Housing: House Alcohol intake: never Patient Tobacco Use Status: Former Tobacco user e-Cigarette/Vaping Use: Never Used Second Hand Smoke Exposure: Yes Use of substances other than those prescribed or required for medical reasons: No Are you DNR?: No Advance Directives: No Advance Directives Information Provided: Yes service: No Current occupational status: employed Cognitive needs: No Hearing needs: No Vision needs: Yes Meds Allergies Allergy/AdvReac Type Severity Reaction Status Date / Time Penicillins [PENICILLINS] Allergy Intermediate UNKNOWN Verified 03/02/22 10:41 Exam Exam Date and Time: August 23, 2022 1236 Pertinent Lab Results Pertinent Lab Results: Laboratory Tests 08/02/22 08/02/22 03:15 03:15 WBC 7.7 Hgb 14.8 Hct 44.6 Plt Count 219 Sodium 141 Potassium 5.0 Chloride 107 Carbon Dioxide 26 BUN 18 H Creatinine 0.90 Assessment and Plan Assessment Anesthesia Assessment: Chart Reviewed Documented by User: Minnie Qureshi MD 08/24/22 14:00 PMFSH Past Medical History Medical History Benign essential hypertension Diabetes mellitus Morbid obesity with BMI of 50.0-59.9, adult Pure hypercholesterolemia Family History Family History Mother Diabetes CHF (congestive heart failure) High blood pressure Father No problems noted. Other Substance abuse Surgical History Surgical History No pertinent past surgical history History of Problems with Anesthesia: No Social History Social History Housing: House Alcohol intake: never Patient Tobacco Use Status: Former Tobacco user e-Cigarette/Vaping Use: Never Used Second Hand Smoke Exposure: Yes Use of substances other than those prescribed or required for medical reasons: No Are you DNR?: No Advance Directives: No Advance Directives Information Provided: Yes service: No Current occupational status: employed Cognitive needs: No Hearing needs: No Vision needs: Yes Meds Allergies Allergy/AdvReac Type Severity Reaction Status Date / Time Penicillins [PENICILLINS] Allergy Intermediate UNKNOWN Verified 03/02/22 10:41 Exam Airway Mallampati Class: III TM Dist: >3cm Neck ROM: Full Loose/Missing/Broken Teeth: No Heart: RRR Lungs: CTA Assessment and Plan Assessment Anesthesia Assessment: Anesthesia Plan Discussed Final Anesthetic Review History of Problems with Anesthesia: No NPO: Yes ASA Class: III Final Preanesthetic Review: Meds/Allgs Chart Reviewed, Consent Obtained/Reviewed and Anes Risks/Benef Reviewed Patient Risk: Intermediate Procedure Risk: Low Anesthetic Plan Anesthetic Plan: MAC: Disposition: Standard PACU
[2022-08-24 12:41] VITALS: BMI 45.7
[2022-08-24 12:46] VITALS: BP 154/94; PULSE 82; RESP 20; TEMP 36.4
[2022-08-24 12:55] LABS: Glucose, Whole Blood 105 mg/dL (60-115)
[2022-08-24] MEDS: Lactated Ringers 1,000 ML 100 ML IVCONT (12:58)
--- NOTE | 2022-08-24 13:36 | MHC.SHP ---
Pre-Procedural Eval Section A Date of Service: 08/24/22 Section B Chief Complaint: Encounter for screening for malignant neoplasm of Relevant Family History (Specify if Yes): No Relevant Social History: None Present Medications: see Short Stay Collaborative assessment Medical History: Significant History (Benign essential hypertension Diabetes mellitus Morbid obesity with BMI of 50.0-59.9, adult Pure hypercholesterolemia) History of Previous Operations: Relevant previous surgery/procedure and date(s) Allergies: Allergies Allergy/AdvReac Type Severity Reaction Status Date / Time Penicillins [PENICILLINS] Allergy Intermediate UNKNOWN Verified 03/02/22 10:41 Review of Systems Sugical H&P ROS: Negative: Constitution, Cardiovascular, Respiratory, Neurological, Psychiatric, Hem-Onc, Allergic/Immunologic, Gastrointestinal, Genitourinary, Musculoskeletal, Integumentary, Endocrine and Eyes/Ears/Nose/Throat Exam Surgical H&P Exam: Normal: HEENT, Normal: Heart, Normal: Lungs, Normal: Extremities, Normal: Abdomen, Normal: Skin and Normal: Neurological Plan Diagnosis/Plan: Unchanged I have reviewed the history and physical and performed a pertinent physical examination on my patient. No changes have occurred unless specified. Time Spent With Patient Time: Total time managing care of this patient today ____ minutes.
--- NOTE | 2022-08-24 14:12 | P.OP_ITS ---
Operative Note Operative Note Date of Service: 08/24/22 Narrative: Operative Information Procedure Description: Colonoscopy Indication: screening Anesthesia: MAC COLONOSCOPY Instrument: Olympus variable stiffness ADULT scope 190L Colonoscopy Monitoring: Vital signs and clinical assessment, continuous EKG monitoring, Pulse oximetry, Carbon Dioxide monitoring and blood pressure monitoring were done throughout the procedure. Colon withdrawal time was 9 minutes. Procedure: The patient was placed in the left lateral decubitis position and pre-procedure medications were administered. After a digital rectal examination of the ano-rectum, the video colonoscope was inserted into the rectum and advanced through the colon to the cecum/TI. The colonoscope was slowly withdrawn in a retrograde panoramic fashion and the colon mucosa was carefully examined including a retroflexed view of the rectum. Findings and interventions are described below. Procedure Difficulty: easy Findings: Terminal Ileum-normal Cecum:normal Ascending Colon: normal Transverse Colon -normal Descending Colon:normal Sigmoid Colon: normal Rectum: Retroflexion with small internal hemorrhoids, grade I-- 5-7 mm sessile polyp removed with cold snare Anorectum - normal Colon preparation: [place] Bowel Preparation Scale Right colon; 2 Transverse colon: 3 Left colon; 3 (0 = Unprepared colon segment with mucosa not seen due to solid stool that cannot be cleared. 1 = Portion of mucosa of the colon segment seen, but other areas of the colon segment not well seen due to staining, residual stool and/or opaque liquid. 2 = Minor amount of residual staining, small fragments of stool and/or opaque liquid, but mucosa of colon segment seen well. 3 = Entire mucosa of colon segment seen well with no residual staining, small fragments of stool or opaque liquid) Impression and Post Procedure Diagnosis: polyp internal hemorrhoids Plan: High fiber diet leaflet Avoid straining at stool, epsom salts and sitz bath, anusol supps or cream Repeat Colonoscopy in 5-7 years if adenomatous polyp, 10 yrs if hyperplastic or earlier if clinically indicated Above findings were reviewed with the patient and relevant handouts were provided if indicated.
[2022-08-24 14:18] VITALS: BP 92/60; PULSE 99; RESP 18; TEMP 36.6; O2SAT 98
[2022-08-24 14:23] VITALS: BP 99/54; PULSE 83; RESP 18; O2SAT 98
[2022-08-24 14:28] VITALS: BP 102/64; PULSE 78; RESP 20; O2SAT 98
[2022-08-24 14:33] VITALS: BP 123/90; PULSE 79; RESP 20; TEMP 37.1; O2SAT 98
== END 2022-08-24 15:21 | disposition home or self-care (01) ==
PROVIDERS: PCP Physician Assistant; Visit Provider Internal Medicine Gastroenterology
PROC: 0DJD8ZZ Inspection of Lower Intestinal Tract, Via Natural or Artificial Opening Endoscopic (ICD-10-PCS; CPT 45378; principal; 2022-08-24 13:20)
DX: Z12.11 Encounter for screening for malignant neoplasm of colon (principal); D12.8 Benign neoplasm of rectum; K64.0 First degree hemorrhoids; I10 Essential (primary) hypertension; E11.9 Type 2 diabetes mellitus without complications; Z88.0 Allergy status to penicillin
CPT/HCPCS: 45385; 82947; 88305

== ENCOUNTER → 2022-08-31 07:56 | Outpatient (BNVA) | payer BC, SELFPAY | PROVIDERS: PCP Physician Assistant; Visit Provider Physician Assistant ==

== ENCOUNTER 2022-09-10 13:45 | Emergency (ER) | payer BC, SELFPAY ==
--- NOTE | 2022-09-10 | ECG_ITS ---
Test Reason : CHEST PAIN Blood Pressure : / mmHG Vent. Rate : 077 BPM Atrial Rate : 077 BPM P-R Int : 156 ms QRS Dur : 076 ms QT Int : 370 ms P-R-T Axes : 014 005 017 degrees QTc Int : 418 ms Normal sinus rhythm Normal ECG When compared with ECG of 23-JUL-2021 11:58, No significant change was found Referred By: Generic ED Physician Electronically Signed By:JADE MASTERS MD
--- NOTE | ~2022-09-10 | XR_ITS ---
EXAMINATION: XR CHEST CLINICAL INFORMATION: Chest pain, shortness of breath. COMPARISON: 07/23/2021 chest radiograph. TECHNIQUE: 2 views of the chest were obtained. FINDINGS: No significant abnormality is noted involving the heart, lungs, mediastinum, bony thorax or soft tissues. XR/XR chest 2V IMPRESSION: No acute cardiopulmonary process.
[2022-09-10 14:05] VITALS: BP 119/75; PULSE 84; RESP 20; TEMP 35.8; O2SAT 97; BMI 46.5
--- NOTE | 2022-09-10 14:05 | ED_ITS ---
HPI - Chest Pain General Chief Complaint: Chest Pain Stated Complaint: chest pain , elevated BP Time Seen by Provider: 09/10/22 14:37 Source: patient and family () History of Present Illness HPI narrative: 52-year-old male with presentation for left-sided chest pain with radiation to the arm and associated with dyspnea which occurred while climbing stairs. Patient states that the pain has been intermittent. Related Data Home Medications Medication Instructions Recorded Confirmed tamsulosin 0.4 mg capsule 0.4 mg PO DAILY 08/31/22 Previous Rx's Medication Instructions Recorded blood sugar diagnostic (FreeStyle #100 ea 07/22/21 Lite Strips) lancets 30 gauge (BD Ultra-Fine II #100 ea 07/22/21 Lancets) blood-glucose meter (FreeStyle #1 ea 09/02/21 Lite Meter kit) sildenafil 100 mg tablet 100 mg PO DAILY PRN sexual 03/02/22 activity 7 days #7 tabs atorvastatin 10 mg tablet 10 mg PO BEDTIME #90 tabs 07/03/22 metformin 500 mg tablet 500 mg PO BID #180 tabs 07/03/22 lisinopril 10 mg tablet 10 mg PO DAILY 90 days #90 tabs 09/08/22 Allergies Allergy/AdvReac Type Severity Reaction Status Date / Time Penicillins [PENICILLINS] Allergy Intermediate UNKNOWN Verified 09/10/22 14:05 Review of Systems Review of Systems: Pertinent positives and negatives as stated in HPI [facility] Past Medical History Source: nursing notes reviewed Medical History Benign essential hypertension Diabetes mellitus Morbid obesity with BMI of 50.0-59.9, adult Pure hypercholesterolemia Surgical History Hx of colonoscopy No pertinent past surgical history Family History Family History Mother Diabetes CHF (congestive heart failure) High blood pressure Father No problems noted. Other Substance abuse Social History Social History Housing: House Alcohol intake: former Patient Tobacco Use Status: Former Tobacco user Smoked in Last 30 Days: No e-Cigarette/Vaping Use: Never Used Second Hand Smoke Exposure: Yes Use of substances other than those prescribed or required for medical reasons: No Advance Directives: No Advance Directives Information Provided: Yes service: No Current occupational status: employed Cognitive needs: No Hearing needs: No Vision needs: Yes Physical Exam Vital Signs: Vital Signs: Last Vital Signs Temp 96.5 F L 09/10/22 14:05 Pulse 72 09/10/22 16:20 Resp 16 09/10/22 16:20 BP 112/73 09/10/22 16:20 Pulse Ox 94 09/10/22 16:20 O2 Del Method Room Air 09/10/22 16:20 BMI result Body Mass Index 46.5 VITAL SIGNS: Reviewed. GENERAL: Elevated BMI, Well developed, well nourished, in no acute distress. HEAD: Normocephalic/atraumatic EYES: PERRLA, EOMI EARS: Ext canals without abnormality LUNGS: Normal breath sounds. No adventitious sounds or accessory muscle use. SpO2<94> CARDIOVASCULAR: Regular rate and rhythm without noted murmurs, no JVD or lower extremity edema. ABDOMEN: Soft, non-tender, non-distended with bowel sounds. MUSCULOSKELETAL: No tenderness, deformities, or effusions noted on gross inspection. EXTREMITIES: No cyanosis, clubbing or edema. SKIN: Inspection of the skin reveals no rashes NEUROLOGIC: Alert and oriented x 4. Strength and sensation to light touch were grossly intact x 4. Course Course Course Narrative: RME - 52 yo male with history of morbid obesity, HTN, DM, hx atypical chest pain who presents to the ER for evaluation of elevated BP and intermittent, pressure and sharp chest pains that started 2 days ago. Pains also in the left arm, back, and lower stomach at times. Poor historian. BP at home 140/100, compiiant with meds, dose increased yesterday. VS normal in triage. Reports new COREY. Plan: EKG, ACS rule out Medical Decision Making Medical Decision Making MDM Narrative: 52-year-old male with history and clinical presentation, DDX: Musculoskeletal, acid reflux, pneumonia, ACS. I reviewed all investigations, hematologic indices are grossly within normal limits without evidence of leukocytosis/left shift/anemia/thrombocytopenia. Chemistry indices are grossly within normal limits without evidence of VERONICA, troponin undetectable and BNP undetectable as well this was further corroborated by a chest x-ray that was not significant for pneumonia and EKG which did not demonstrate any ischemic changes. However, heart score-4, symptoms somewhat suggestive of stable angina and given patient's medical comorbidities patient should undergo stress testing. A referr al was provided for him, he is completely asymptomatic at this time and all workup is relatively within normal limits. All results and findings discussed with him at bedside and he was strongly encouraged to call both his primary care provider as well as cardiology office on Monday morning. Differential Diagnosis Differential Diagnoses: The differential diagnosis associated with the presentation includes Please see the discussion above Admission/Observation Consideration of admission/observation: Escalation of care including admission/observation considered Lab Data MDM Lab Attestation statement: I reviewed the patient's lab results. Please see the discussion above 09/10/22 14:17 09/10/22 14:17 Labs: Lab Results 09/10/22 09/10/22 09/10/22 Range/Units 14:17 14:17 14:17 WBC 7.8 (4.8-10.8) X10*3/uL RBC 5.13 (4.60-5.80) X10*6/uL Hgb 14.7 (14.0-18.0) g/dl Hct 43.7 (42.0-52.0) % MCV 85.2 (80.0-98.0) fL MCH 28.7 (27.0-33.0) pg MCHC 33.6 (31.0-36.0) g/dl RDW 12.5 (11.0-16.0) % Plt Count 218 (160-400) X10*3/uL MPV 9.4 (9.4-12.4) fL Immature Gran % (Auto) 0.5 H (0.0-0.4) % Neut % (Auto) 60.9 (45-73) % Lymph % (Auto) 28.8 (20-40) % [place] % (Auto) 7.2 (2-11) % Eos % (Auto) 2.3 (0-4) % Baso % (Auto) 0.3 (0-2) % Lymph # (Auto) 2.2 (1.2-4.9) X10*3/uL [place] # (Auto) 0.6 (0.1-1.2) X10*3/uL Eos # (Auto) 0.2 (0.0-0.4) X10*3/uL Baso # (Auto) 0.0 (0.0-0.2) X10*3/uL Abs Immat Gran (auto) 0.04 H (0.00-0.03) X10*3/uL Absolute Neuts (auto) 4.7 (2.0-8.3) x10*3/uL Absolute Nucleated RBC 0.000 (0.0-0.012) X10*3/uL Nucleated RBC % (auto) 0.0 (0.0-0.2) /100WBC Sodium 139 (135-145) mmol/L Potassium 3.8 D (3.3-5.1) mmol/L Chloride 105 (96-108) mmol/L Carbon Dioxide 26 (22-29) mmol/L Anion Gap 12 (12-20) BUN 19 H (9-16) mg/dL Creatinine 0.86 (0.5-1.4) mg/dL Estim Creat Clear Calc 150.5 Estimated GFR > 60 Random Glucose 135 H (60-115) mg/dL Calcium 10.4 H D (8.4-10.2) mg/dL Total Bilirubin 1.0 (0.0-1.0) mg/dL AST 19 (5-37) U/L ALT 27 (0-40) U/L Alkaline Phosphatase 82 (39-117) U/L Troponin I High Sens < 2.7 (<3.5-35.0) ng/L B-Natriuretic Peptide (<100) pg/mL Total Protein 7.3 (6.5-8.0) g/dL Albumin 4.2 (3.5-5.0) g/dL Lipase 18 (8-78) U/L 09/10/22 Range/Units 14:17 WBC (4.8-10.8) X10*3/uL RBC (4.60-5.80) X10*6/uL Hgb (14.0-18.0) g/dl Hct (42.0-52.0) % MCV (80.0-98.0) fL MCH (27.0-33.0) pg MCHC (31.0-36.0) g/dl RDW (11.0-16.0) % Plt Count (160-400) X10*3/uL MPV (9.4-12.4) fL Immature Gran % (Auto) (0.0-0.4) % Neut % (Auto) (45-73) % Lymph % (Auto) (20-40) % [place] % (Auto) (2-11) % Eos % (Auto) (0-4) % Baso % (Auto) (0-2) % Lymph # (Auto) (1.2-4.9) X10*3/uL [place] # (Auto) (0.1-1.2) X10*3/uL Eos # (Auto) (0.0-0.4) X10*3/uL Baso # (Auto) (0.0-0.2) X10*3/uL Abs Immat Gran (auto) (0.00-0.03) X10*3/uL Absolute Neuts (auto) (2.0-8.3) x10*3/uL Absolute Nucleated RBC (0.0-0.012) X10*3/uL Nucleated RBC % (auto) (0.0-0.2) /100WBC Sodium (135-145) mmol/L Potassium (3.3-5.1) mmol/L Chloride (96-108) mmol/L Carbon Dioxide (22-29) mmol/L Anion Gap (12-20) BUN (9-16) mg/dL Creatinine (0.5-1.4) mg/dL Estim Creat Clear Calc Estimated GFR Random Glucose (60-115) mg/dL Calcium (8.4-10.2) mg/dL Total Bilirubin (0.0-1.0) mg/dL AST (5-37) U/L ALT (0-40) U/L Alkaline Phosphatase (39-117) U/L Troponin I High Sens (<3.5-35.0) ng/L B-Natriuretic Peptide < 10 (<100) pg/mL Total Protein (6.5-8.0) g/dL Albumin (3.5-5.0) g/dL Lipase (8-78) U/L Independent Interpretation I performed an independent interpretation of an: EKG Interpretation: Normal sinus rhythm, HR-77, no STEMI, ME/QRS/QTC are within normal limits. Radiology Impression Radiologist Impression: No pneumonia, otherwise my interpretation is in agreement with radiology's impression. External Record Review External record reviewed: Office record, Outpatient record and Prior outpatient labs Chronic Conditions Patient?s care impacted by: Diabetes and Hypertension Discharge Plan Discharge Clinical Impression: Chest pain Patient Disposition: Home, Self-Care Instructions: Chest Pain (ED) Additional Instructions: 1. Resume all home medications as prescribed. 2. Please call the cardiology office on Monday, a referral has been provided to you below. 3. Call your PCP on Monday as well. Return to the ER for any worsening symptoms. Prescriptions: No Action (DME) FreeStyle Lite Strips Strip See Rx Instructions .Route Qty: 100 0RF Rx Instructions: Test Daily (DME) lancets [BD Ultra-Fine II Lancets] 30 gauge misc See Rx Instructions .Route Qty: 100 0RF Rx Instructions: Test Daily (DME) blood-glucose meter [FreeStyle Lite Meter] Kit See Rx Instructions .Route Qty: 1 0RF Rx Instructions: Test Daily metformin 500 mg tablet 500 mg PO BID Qty: 180 0RF atorvastatin 10 mg tablet 10 mg PO BEDTIME Qty: 90 0RF lisinopril 10 mg tablet 10 mg PO DAILY 90 Days Qty: 90 1RF sildenafil 100 mg tablet 100 mg PO DAILY PRN (Reason: sexual activity) 7 Days Qty: 7 0RF tamsulosin 0.4 mg capsule 0.4 mg PO DAILY Referrals: Antonio Tuttle PA-C [Primary Care Provider] - Cliff Mccormick MD [Physician] - (52M HEART Score-4, EKG no ischemic changes and Trop undetectable, but would probably benefit from stress test) Stand Alone Forms: Work/School Release
[2022-09-10 14:23] LABS: MANUAL DIFF FLAG NO
[2022-09-10 14:25] LABS: Basophils Percent Auto 0.3 % (0-2); Eosinophils Absolute Auto 0.2 X10*3/uL (0.0-0.4); Eosinophils Percent Auto 2.3 % (0-4); Hematocrit 43.7 % (42.0-52.0); Hemoglobin 14.7 g/dl (14.0-18.0); Imm Gran Abs Auto 0.04 X10*3/uL (0.00-0.03); Imm Gran Pct Auto 0.5 % (0.0-0.4); Lymphocytes Absolute Auto 2.2 X10*3/uL (1.2-4.9); Lymphocytes Percent Auto 28.8 % (20-40); Mean Corpuscular HGB Conc 33.6 g/dl (31.0-36.0); Mean Corpuscular Hemoglobin 28.7 pg (27.0-33.0); Mean Corpuscular Volume 85.2 fL (80.0-98.0); Mean Platelet Volume 9.4 fL (9.4-12.4); Monocytes Absolute Auto 0.6 X10*3/uL (0.1-1.2); Monocytes Percent Auto 7.2 % (2-11); Neutrophils Absolute Auto 4.7 x10*3/uL (2.0-8.3); Neutrophils Percent Auto 60.9 % (45-73); Platelet Count 218 X10*3/uL (160-400); Red Blood Count 5.13 X10*6/uL (4.60-5.80); Red Cell Distribution Width 12.5 % (11.0-16.0); White Blood Count 7.8 X10*3/uL (4.8-10.8)
[2022-09-10 14:41] LABS: Alanine Aminotransferase 27 U/L (0-40); Albumin Level 4.2 g/dL (3.5-5.0); Alkaline Phosphatase 82 U/L (39-117); Anion Gap 12 (12-20); Aspartate Amino Transferase 19 U/L (5-37); Blood Urea Nitrogen 19 mg/dL (9-16); Calcium 10.4 mg/dL (8.4-10.2); Carbon Dioxide 26 mmol/L (22-29); Chloride 105 mmol/L (96-108); Creatinine Clr Calc Pharmacy 150.5; Estimated Glomerular Filt Rate > 60; Glucose Random 135 mg/dL (60-115); Potassium 3.8 mmol/L (3.3-5.1); Sodium 139 mmol/L (135-145); Total Protein 7.3 g/dL (6.5-8.0)
[2022-09-10 14:49] LABS: Lipase 18 U/L (8-78); Troponin-I High Sensitivity < 2.7 ng/L (<3.5-35.0)
--- NOTE | 2022-09-10 14:58 | PC.NURSE ---
pt aox4, reporting intermittent chest pain x2 days which radiates to shoulder/upper back. Pt reports clammy hands and right shoulder pain. Pt reports high blood pressure (144/102) at home. EKG done labs done, vitals stable. will ctm
[2022-09-10 15:01] LABS: B Type Natriuretic Peptide < 10 pg/mL (<100)
[2022-09-10 15:04] VITALS: BP 136/84; PULSE 72; RESP 12; O2SAT 96
[2022-09-10 16:20] VITALS: BP 112/73; PULSE 72; RESP 16; O2SAT 94
== END 2022-09-10 17:42 | disposition home or self-care (01) ==
PROVIDERS: Physician Assistant; Emergency Provider Student in an Organized Health Care Education/Training Program; PCP Physician Assistant
DX: R07.9 Chest pain, unspecified (principal); R06.00 Dyspnea, unspecified; E11.9 Type 2 diabetes mellitus without complications; I10 Essential (primary) hypertension; E78.00 Pure hypercholesterolemia, unspecified; E66.9 Obesity, unspecified; Z68.42 Body mass index [BMI] 45.0-49.9, adult; Z87.891 Personal history of nicotine dependence; Z79.84 Long term (current) use of oral hypoglycemic drugs; Z79.899 Other long term (current) drug therapy
CPT/HCPCS: 36415; 71046; 80053; 83690; 83880; 84484; 85025; 93005; 99283; 99284

== ENCOUNTER → 2022-09-10 13:53 | Outpatient (BNV) | payer BC, SELFPAY | PROVIDERS: Emergency Provider Student in an Organized Health Care Education/Training Program; PCP Physician Assistant; Visit Provider Internal Medicine Cardiovascular Disease | DX: R07.9 Chest pain, unspecified (principal) | CPT/HCPCS: 93010 ==

== ENCOUNTER 2022-10-13 09:14 | Outpatient (AMB) | payer BC, SELFPAY ==
--- NOTE | 2022-10-13 09:19 | A.OFFPC_ITS ---
Vital Signs 10/13/22 09:20 Height 5 ft 11 in Weight 335 lb BMI 46.7 BP 122/84 Blood Pressure Location Lt brachial Position Sitting Pulse 92 Pulse Source Pulse Oximeter Pulse Oximetry (%) 98 Oxygen Delivery Method Room Air Intake Visit Reasons: Annual Exam Allergies Penicillins [PENICILLINS] Allergy (Intermediate, Verified 10/13/22 09:55) UNKNOWN Medication List - Last Reconciled 10/13/22 by Antonio Tuttle PA-C atorvastatin 10 mg PO BEDTIME blood sugar diagnostic (FreeStyle Lite Strips) Test Daily blood-glucose meter (FreeStyle Lite Meter kit) Test Daily lancets (BD Ultra-Fine II Lancets) Test Daily lisinopril 10 mg PO DAILY 90 days metformin 500 mg PO BID sildenafil 100 mg PO DAILY PRN 7 days Tobacco use date assessed: 10/13/22 Dental Screening Dental Screen Date: 10/13/22 Did you have a dental visit in the last 12 months?: Yes Did you have a dental problem in the last 6 months where you did not have access to dental care?: No Was dental information given to patient?: Patient has dentist HPI Annual Exam HPI Details Patient is a 52-year-old male here today for routine annual physical.? Patient has a past medical history significant for type 2 diabetes, hyperlipidemia, hypertension, morbid obesity. Patient recently seen at the [facility] for acute chest discomfort. EKG and troponins and labs all within normal range. Patient likely suffering from anxiety and had panic attack. He reports he has not been eating as well as he used to due to stress. He does report being under a lot of stress due to work related issues. .. Type 2 diabetes:? Has been more adherent to his metformin and now A1c much improved ..? He does report a few episodes of hypoglycemia due to not eating before work. ?He would like to use injectable therapy for his diabetes and for added benefit of weight loss. Will trial Ozempic. .. Hypertension:? Blood pressure today in office acceptable.? Will continue him on his current dose of lisinopril.? He denies any headaches , chest discomforts or dizziness. . Hyperlipidemia:? Continues on statin therapy without any side effect.? Most r ecent LDL above 100.? Will recheck fasting lipid panel fullness above 100 will consider increasing potency of statin Colonoscopy: Recently 2022 had colonoscopy, found to have tubular adenoma polyp repeat 5 years Vaccines: Up-to-date with tetanus vaccine and COVID vaccine, considering Shingrex Laboratory Tests 03/10/22 09/10/22 09/10/22 06:19 14:17 14:17 RBC 5.13 Random Glucose 135 H Hgb A1c (Clinic) Cholesterol 151 LDL Cholesterol, C alc 88 10/13/22 09:27 RBC Random Glucose Hgb A1c (Clinic) 6.6 H Cholesterol LDL Cholesterol, C alc [facility] Medical History Benign essential hypertension Diabetes mellitus Morbid obesity with BMI of 50.0-59.9, adult Pure hypercholesterolemia Surgical History Hx of colonoscopy No pertinent past surgical history Family History Mother Diabetes CHF (congestive heart failure) High blood pressure Father No problems noted. Other Substance abuse Social History (Updated 10/13/22 @ 10:00 by Antonio Tuttle PA-C) Housing: House Alcohol intake: former Patient Tobacco Use Status: Former Tobacco user Quit Date: 1989 e-Cigarette/Vaping Use: Never Used Second Hand Smoke Exposure: Yes service: No Current occupational status: employed Current occupation: [employer] Cognitive needs: No Hearing needs: No Vision needs: Yes Questionnaire PHQ-9 Over the last 2 weeks, how often have you been bothered by any of the following problems? 1. Little interest or pleasure in doing things: not at all 2. Feeling down, depressed, or hopeless: not at all 3. Trouble falling or staying asleep, or sleeping too much: not at all 4. Feeling tired or having little energy: not at all 5. Poor appetite or overeating: not at all 6. Feeling bad about yourself - or that you are a failure or have let yourself or your family down: not at all 7. Trouble concentrating on things, such as reading the newspaper or watching television: not at all 8. Moving or speaking so slowly that other people could have noticed. Or the opposite - being so fidgety or restless that you have been moving around a lot more than usual: not at all 9. Thoughts that you would be better off or of hurting yourself in some way: not at all Total score: 0 Depression Screening Interpretation: Negative 66195 - PHQ-9 Billing: Yes Source: Developed by Drs. Josse Ortiz, Eda Patrick, Danilo Dumas and colleagues, with an educational alok from [employer]. Thrive Questionnaire Date Thrive assessed: 03/02/22 I am a: Patient What is your living situation today?: I have a steady place to live Within the past 12 months, did the food you bought not last and you didn't have the money to get more?: Never true Within the past 12 months, did you worry whether your food would run out before you got money to buy more?: Never true Do you have trouble paying for medicines?: No Do you have trouble getting transportation to medical appointments?: No Do you have trouble paying your heating and electricity bill?: No Do you have trouble taking care of your child, family member or friend?: No Do you have trouble with day-to-day activities such as bathing, preparing meals, shopping, managing finances, etc.?: No Are you currently unemployed and looking for a job?: No Are you interested in more education?: No Currently or been in a relationship where the following occur: no concerns reported AUDIT C Alcohol Use Questionnaire (AUDIT-C) 1. How often do you have a drink containing alcohol?: Never 3. How often do you have six or more drinks on one occasion?: Never Total Score: 0 YAMILE-7 AMB Questionnaire YAMILE-7 Date YAMILE - 7 assessed: 03/02/22 Feeling nervous, anxious, or on edge: 0 = Not at all Not being able to stop or control worryin = Not at all Worrying too much about different things: 0 = Not at all Trouble relaxin = Not at all Being so restless that it is hard to sit still: 0 = Not at all Becoming easily annoyed or irritable: 0 = Not at all Feeling afraid as if something awful might happen: 0 = Not at all Total YAMILE-7 score (0-4 normal; 5-9 mild; 10-14 moderate; 15-21 severe): 0 Source: Developed by Eda Schneider Kurt Kroenke and colleagues, with an educational alok from [employer]. YAMILE-7 Assessment Billing YAMILE-7 Assessment Tool: YAMILE-7 Assessment 68741 Review of Systems Const Denies body aches, Denies chills, Denies excessive sweating, Denies fatigue, Denies fever(s) and Denies headache(s) Eyes Denies blurry vision ENT Denies dysphagia, Denies vertigo, Denies dizziness, Denies headache(s), Denies hearing loss and Denies tinnitus Card Denies chest pain, Denies chest pain with activity, Denies syncope, Denies irregular heart rhythm and Denies dyspnea Resp Denies chest congestion, Denies cough, Denies hemoptysis, Denies dyspnea and Denies wheezing GI Denies abdominal pain, Denies melena, Denies hematochezia, Denies coffee ground emesis, Denies dysphagia, Denies diarrhea, Denies nausea and Denies vomiting Denies difficulty urinating, Denies dysuria, Denies urinary frequency, Denies urinary hesitancy and Denies urinary urgency Musc Denies arthralgias, Denies limited range of motion, Denies muscle cramps and Denies muscle weakness Skin/Breast Denies rash and Denies skin ulcer Neuro Denies Abnormal speech present, Denies confusion, Denies vertigo, Denies dizziness, Denies syncope, Denies headache(s), Denies memory loss and Denies seizure-like activity Psych Reports anxiety, Denies confusion, Denies depression, Denies memory loss, Reports panic attacks and Reports paranoia Endo Denies excessive sweating, Denies fatigue, Denies flushing, Denies polydipsia and Denies polyuria Aller/Immun Denies wheezing Physical exam (Primary Care) Vital Signs: Last Vital Signs Pulse 92 10/13/22 09:20 BP 122/84 10/13/22 09:20 Pulse Ox 98 10/13/22 09:20 Oxygen Delivery Method Room Air 10/13/22 09:20 BMI result Body Mass Index 46.7 BMI Assessment/Plan discussion: High Tobacco/Smoking Status: Tobacco use Status Tobacco use date assessed 10/13/22 10/13/22 09:26 Patient Tobacco Use Status Former Tobacco user 10/13/22 10:00 e-Cigarette/Vaping Use Never Used 10/13/22 10:00 PHQ-9: PHQ-9 Score PHQ-9: Total score 0 10/13/22 09:52 Depression Screening Interpretation: Negative Thrive Assessment: Date of Thrive Assessment Date Thrive assessed 03/02/22 10/13/22 09:19 Currently or been in a relationship where the following occur: no concerns re ported Const Other: Morbidly obese General: cooperative, comfortable, no acute distress, alert and awake; No confusion Orientation/consciousness: oriented to person, oriented to place, patient oriented x3 and No confusion HENMT Head: Yes normocephalic Ears: external ears normal and TM's normal bilaterally Face and sinus: No sinus tenderness Mouth: Normal oral and palatal mucosa present and tongue normal Teeth and gingiva: dentition normal and gingiva normal Throat: Yes posterior oropharynx normal, Yes tonsils normal and Yes uvula midline Eyes Conjunctivae: conjunctivae normal Sclerae: sclerae normal Pupils: Equal, round and reactive pupils present EOM: EOMs intact bilaterally Direct Ophthalmoscopy: No no photophobia Neck Neck: Yes no lymphadenopathy, No tender and Yes no JVD Thyroid: Thyroid normal Carotids: no bruits Chest Chest palpation & inspection: no tenderness Resp Effort & Inspection: normal respiratory effort, no audible wheezes, not labored and no stridor Auscultation: no crackles, no rales, no rhonchi and no wheezes Cardio Jugular venous distension: no JVD Rate: regular rate, not bradycardic and not tachycardic Rhythm: regular rhythm Bruits: no carotid bruits Peripheral pulses: Peripheral pulses 2+ throughout GI Inspection: Yes normal to inspection, No abdominal wall ecchymosis and No visible herniation Palpation (GI): Soft to palpation, nontender, no guarding, not rigid and No hepatosplenomegaly present Auscultation: normoactive bowel sounds General: Yes no CVA tenderness Back/Spine/Pelvis Back: no CVA tenderness and No back tenderness Cervical Spine: cervical ROM normal Thoracic/Lumbar Spine: thoracic and lumbar spine normal to inspection, straight leg raise negative bilaterally, No thoraco-lumbar ROM limited and No lumbar spinal tenderness Skin Lesions: no lesions Rashes: no rashes Wounds: no wounds Neuro General: oriented to person, oriented to place, patient oriented x3, CN's II-XI intact bilaterally and No confusion Cranial nerves: Yes Equal, round and reactive pupils present and Yes Normal accommodation reflex present Cognition (Neuro): normal cognition Speech: No Abnormal speech present Gait exam (Neuro): Normal gait present Motor exam (neuro): 5/5 motor strength present throughout Extrem Right upper extremity: full ROM; no cyanosis Left upper extremity: full ROM; no cyanosis Right lower extremity: no edema Left lower extremity: no edema Psych Appearance: grossly normal Mental Status: mental status grossly normal Affect: normal affect Attitude: cooperative Thought process: Normal thought process present Results AMB Hemoglobin A1c AMB Hemoglobin A1c 6.6 % Last Edit by Lisette Mcbride MA on 10/13/22 09:29 Results Reviewed Results Reviewed: Laboratory Last Values Hgb A1c (Clinic) 6.6 % (4.0-6.0) H 10/13/22 09:27 Assessment and Plan Assessment & Plan (1) Annual physical exam: Code(s): Z00.00 - Encounter for general adult medical examination without abnormal fi ndings (2) Pure hypercholesterolemia: Code(s): E78.00 - Pure hypercholesterolemia, unspecified Plan: Patient's most recent lipid panel showing appropriate total cholesterol and LDL. Will continue current statin therapy with goal LDL to remain below 100. (3) Benign essential hypertension: Code(s): I10 - Essential (primary) hypertension Plan: Patient's blood pressure today in office acceptable. Will continue current dose of lisinopril with goal blood pressure to remain below 140/90 (4) Diabetes mellitus: Comment: I am unable to review his most recent blood work-however he in his are informed. Reportedly his hemoglobin A1c has improved Reviewed PCP note Code(s): E11.9 - Type 2 diabetes mellitus without complications Qualifiers: Diabetes mellitus complication status: with hyperglycemia Diabetes mellitus [employer] insulin use: without [employer] use Diabetes mellitus type: type 2 Qualified Code(s): E11.65 - Type 2 diabetes mellitus with hyperglycemia Plan: Patient's A1c today 6.6. Patient has type 2 diabetes well controlled. Will continue current dose of metformin 500 b.i.d.. He will like to try helps him pick and if covered by insurance will start office 0.25 mg weekly. (5) Obese: Code(s): E66.9 - Obesity, unspecified Qualifiers: Body mass index: BMI 40.0-44.9 Obesity classification: adult class 3 (BMI >= 40) Obesity type: due to excess calories Serious obesity comorbidity presence: with serious comorbidity Qualified Code(s): E66.01 - Morbid (severe) obesity due to excess calories; Z68.41 - Body mass index [BMI] 40.0-44.9, adult Plan: Patient does understand his BMI is well over 40 will work on trying to be more physically active and adapt to better eating habits to reduce his weight. Again interested in starting injectable therapy for his weight hand diabetes. (6) Tubular adenoma: Comment: repeat colonoscopy 5 years AFDR- begin screening by age 40 Code(s): D36.9 - Benign neoplasm, unspecified site (7) YAMILE (generalized anxiety disorder): Code(s): F41.1 - Generalized anxiety disorder Plan: Patient seems to be suffering from an anxiety disorder. He is willing to try as-needed medication for his anxious symptoms. Will trial hydroxyzine 25 mg p.r.n. for panic symptoms. Orders: Orders Comprehensive [place]. Panel Fast Today E11.65 - Type 2 diabetes mellitus with hyperglycemia Lipid Panel Today E78.00 - Pure hypercholesterolemia, unspecified Prostate Specific Antigen Scr Today E78.00 - Pure hypercholesterolemia, unspecified, Z12.5 - Encounter for screening for malignant neoplasm of prostate AMB Hemoglobin A1c Today E11.9 - Type 2 diabetes mellitus without complications Medications: New semaglutide (Ozempic) for 4 weeks 0.25 mg (0.368 mL) subcut QWEEK 4 weeks 3 mL 1RF E66.01 - Morbid (severe) obesity due to excess calories, Z68.41 - Body mass index [BMI] 40.0- 44.9, adult hydroxyzine HCl 25 mg PO ONCE 10 days PRN 10 tabs 0RF panic attacks F41.1 - Generalized anxiety disorder Coding Level of Care Code Est Pt Prev Care 40-64y([id number]) Diagnoses Annual physical exam Z00.00 Pure hypercholesterolemia E78.00 Benign essential hypertension I10 Diabetes mellitus E11.65 Diabetes mellitus complication status: with hyperglycemia Diabetes mellitus [employer] insulin use: without fdc use Diabetes mellitus type: type 2 Obese E66.01; Z68.41 Body mass index: BMI 40.0-44.9 Obesity classification: adult class 3 (BMI >= 40) Obesity type: due to excess calories Serious obesity comorbidity presence: with serious comorbidity Tubular adenoma D36.9 YAMILE (generalized anxiety disorder) F41.1 Additional Codes YAMILE-7 Assessment Billing - YAMILE-7 Assessment Tool: YAMILE-7 Assessment [id number] ([id number])
[2022-10-13 09:20] VITALS: BP 122/84; PULSE 92; O2SAT 98; BMI 46.7
== END 2022-10-13 10:24 | disposition home or self-care (01) ==
PROVIDERS: PCP Physician Assistant; Visit Provider Physician Assistant
DX: Z00.00 Encounter for general adult medical examination without abnormal findings (principal); I10 Essential (primary) hypertension; E66.01 Morbid (severe) obesity due to excess calories; Z68.41 Body mass index [BMI] 40.0-44.9, adult; E11.65 Type 2 diabetes mellitus with hyperglycemia; E78.00 Pure hypercholesterolemia, unspecified; D36.9 Benign neoplasm, unspecified site; F41.1 Generalized anxiety disorder
CPT/HCPCS: 83036; 99396

== ENCOUNTER 2023-01-04 21:40 | Emergency (ER) | payer BC, SELFPAY ==
--- NOTE | ~2023-01-04 | CT_ITS ---
EXAMINATION: CT ABDOMEN AND PELVIS WITHOUT CONTRAST CLINICAL INFORMATION: Left flank pain. COMPARISON: CT abdomen/pelvis 08/02/2022. TECHNIQUE: Multidetector volumetric imaging was performed from the superior aspect of the liver through the pubic symphysis. Sagittal and coronal reformatted images were obtained on the technologist's workstation. This CT examination was performed using dose optimization techniques as appropriate, variously including the following: *Automated exposure control *Adjustment of mA and/or kV according to patient size (this includes techniques or standardized protocols for targeted exams where dose is matched to indication/reason for exam; i.e. extremities or head) *Use of iterative reconstruction technique DLP: 1172 mGy-cm FINDINGS: The lack of intravenous contrast limits evaluation of the solid visceral organs including the liver, spleen, pancreas, and kidneys. LUNG BASES: The visualized lung bases are unremarkable. LIVER, GALLBLADDER, AND BILIARY TREE: The liver is enlarged measuring 20.7 cm craniocaudally but otherwise normal in shape and attenuation without focal lesion. No biliary ductal dilatation. The gallbladder is unremarkable with no evidence of radiopaque gallstones, gallbladder wall thickening, or obvious pericholecystic inflammatory changes. PANCREAS: Unremarkable. SPLEEN: Unremarkable. ADRENAL GLANDS: Stable bilateral adrenal hypertrophy. Stable 1.3 cm left adrenal nodule measuring less than 10 Hounsfield units consistent with an adenoma, for which no imaging follow-up is recommended. KIDNEYS AND URETERS: Mild to moderate left-sided hydroureteronephrosis upstream from a 7 mm calculus in the left ureter situated at the level of L2-L3. Mild associated stranding surrounding the ureter and renal pelvis. There is a 3 mm nonobstructive calculus in the proximal right ureter at the level of L2 (3:42). A few additional nonobstructive punctate calculi are noted bilaterally. BLADDER: Underdistended. No perivesical fat stranding or free fluid. GASTROINTESTINAL TRACT: Nonspecific gastric distention with heterogeneous intraluminal debris. The small bowel is nondilated. Normal appendix. Mild colonic diverticulosis without significant pericolonic fat stranding or free fluid. No evidence of bowel obstruction. ABDOMINAL WALL: Small fat-containing left inguinal hernia. LYMPH NODES: No lymphadenopathy. VASCULAR: Normal caliber abdominal aorta with scattered atherosclerotic disease. PELVIC VISCERA: Unremarkable. OSSEOUS STRUCTURES: Degenerative changes of the spine. No acute or aggressive appearing osseous findings. CT/CT abdomen pelvis wo IV con IMPRESSION: 1. Mild to moderate left-sided hydroureteronephrosis upstream from a 7 mm calculus in the left ureter at the level of L2-L3. Mild associated fat stranding is likely reactive, recommend clinical correlation for superimposed infection. 2. Nonobstructive 3 mm calculus in the proximal right ureter. Additional bilateral punctate nonobstructive renal calculi. 3. Mild colonic diverticulosis without evidence of acute diverticulitis. 4. Hepatomegaly. 5. Nonspecific gastric distention, possibly related with postprandial state, less likely gastroparesis or gastric outlet obstruction in the appropriate clinical context.
[2023-01-04 21:47] VITALS: PULSE 80; RESP 20; TEMP 36.8; O2SAT 99; BMI 44.3
[2023-01-04 22:04] LABS: MANUAL DIFF FLAG NO
[2023-01-04 22:09] LABS: Basophils Percent Auto 0.2 % (0-2); Eosinophils Absolute Auto 0.1 X10*3/uL (0.0-0.4); Eosinophils Percent Auto 0.9 % (0-4); Hemoglobin 14.7 g/dl (14.0-18.0); Imm Gran Abs Auto 0.05 X10*3/uL (0.00-0.03); Imm Gran Pct Auto 0.5 % (0.0-0.4); Lymphocytes Absolute Auto 1.8 X10*3/uL (1.2-4.9); Lymphocytes Percent Auto 17.4 % (20-40); Mean Corpuscular HGB Conc 33.4 g/dl (31.0-36.0); Mean Corpuscular Hemoglobin 29.4 pg (27.0-33.0); Mean Platelet Volume 9.8 fL (9.4-12.4); Monocytes Absolute Auto 0.7 X10*3/uL (0.1-1.2); Monocytes Percent Auto 7.1 % (2-11); Neutrophils Absolute Auto 7.6 x10*3/uL (2.0-8.3); Neutrophils Percent Auto 73.9 % (45-73); Platelet Count 225 X10*3/uL (160-400); Red Cell Distribution Width 13.2 % (11.0-16.0); White Blood Count 10.3 X10*3/uL (4.8-10.8)
[2023-01-04 22:24] LABS: Alanine Aminotransferase 27 U/L (0-40); Albumin Level 4.2 g/dL (3.5-5.0); Alkaline Phosphatase 92 U/L (39-117); Anion Gap 10 (12-20); Aspartate Amino Transferase 23 U/L (5-37); Bilirubin Total 0.8 mg/dL (0.0-1.0); Blood Urea Nitrogen 16 mg/dL (9-16); Calcium 9.7 mg/dL (8.4-10.2); Carbon Dioxide 29 mmol/L (22-29); Chloride 106 mmol/L (96-108); Creatinine Clr Calc Pharmacy 93.4; Estimated Glomerular Filt Rate 56; Glucose Random 163 mg/dL (60-115); Lipase 38 U/L (8-78); Potassium 4.4 mmol/L (3.3-5.1); Sodium 141 mmol/L (135-145); Total Protein 7.3 g/dL (6.5-8.0)
--- NOTE | 2023-01-04 22:33 | ED_ITS ---
HPI - Abdominal Pain General Chief Complaint: Abdominal Pain Stated Complaint: L side body pain, back to front. bloody urine Time Seen by Provider: 01/04/23 22:29 Source: patient and old records reviewed Mode of arrival: ambulatory Limitations: no limitations History of Present Illness HPI narrative: 52 yo male with PMH of anxiety, chest pain, DM, HTN, obesity, prior renal colic, here with c/o abrupt onset L flank pain with n/v starting at 5pm. he is able to urinate the pain is sharp and stabbing wraps around the abdomen. MD elicited complaint: flank pain Pertinent past history: kidney stones Onset (ago): hour(s) (5pm) Pain Consistency: constant Location: L flank Severity: severe Quality: stabbing Radiation: LLQ Migration to: no migration Exacerbating factors: nothing Relieving factors: nothing Context: history of similar episodes Associated symptoms: nausea and vomiting Treatments prior to arrival: other (tylenol) Related Data Previous Rx's Medication Instructions Recorded blood sugar diagnostic (FreeStyle #100 ea 07/22/21 Lite Strips) lancets 30 gauge (BD Ultra-Fine II #100 ea 07/22/21 Lancets) blood-glucose meter (FreeStyle #1 ea 09/02/21 Lite Meter kit) sildenafil 100 mg tablet 100 mg PO DAILY PRN sexual 03/02/22 activity 7 days #7 tabs lisinopril 10 mg tablet 10 mg PO DAILY 90 days #90 tabs 09/08/22 hydroxyzine HCl 25 mg tablet 25 mg PO ONCE PRN panic attacks 10 10/13/22 days #10 tabs semaglutide 0.25 mg or 0.5 mg (2 0.25 mg (0.368 mL) subcut QWEEK 4 12/26/22 mg/3 mL) subcutaneous pen injector weeks #3 mL (Ozempic) atorvastatin 10 mg tablet 10 mg PO BEDTIME #90 tabs 12/27/22 metformin 500 mg tablet 500 mg PO BID #180 tabs 12/27/22 semaglutide 1 mg/dose (2 mg/1.5 1 mg (0.75 mL) subcut QWEEK 4 01/03/23 mL) subcutaneous pen injector weeks #3 mL hydromorphone 2 mg tablet 2 mg PO Q4-6H PRN pain #14 tabs 01/05/23 (Dilaudid) ondansetron 4 mg disintegrating 4 mg PO Q8H PRN nausea and 01/05/23 tablet vomiting #20 tabs tamsulosin 0.4 mg capsule 0.4 mg PO DAILY 7 days #7 caps 01/05/23 Allergies Allergy/AdvReac Type Severity Reaction Status Date / Time Penicillins [PENICILLINS] Allergy Intermediate UNKNOWN Verified 10/13/22 09:55 Review of Systems Review of Systems Constitutional : No Weight loss, No Fever, No Chills ENT/Mouth : No sore throat, No Rhinorrhea Eyes: No Swelling, No Redness Cardiovascular : No Chest Pain, No SOB, NoEdema Respiratory : No Cough, No Sputum, No Wheezing Gastrointestinal : Positive Nausea, Positive Vomiting, no Diarrhea, positive abdominal Pain, No Hematochezia, No Melena Genitourinary : No Dysuria, No Urinary Frequency, No Hematuria, No Urgency Musculoskeletal : No joint pain, No Myalgias, No Joint Swelling Skin : No Skin Lesions, No rash Neuro : No Weakness, No Numbness, No Dizziness, No Headache Psych : No Anxiety/Panic, No Depression All other systems reviewed and are negative. [facility] Past Medical History Attestation statement: The following information was validated with the patient. Source: old records reviewed Medical History Diabetes mellitus Pure hypercholesterolemia Benign essential hypertension Morbid obesity with BMI of 50.0-59.9, adult Surgical History Hx of colonoscopy No pertinent past surgical history Family History Family History Mother Diabetes CHF (congestive heart failure) High blood pressure Father No problems noted. Other Substance abuse Social History Social History Housing: House Alcohol intake: former Patient Tobacco Use Status: Former Tobacco user Quit Date: 1989 Smoked in Last 30 Days: No e-Cigarette/Vaping Use: Never Used Second Hand Smoke Exposure: Yes Use of substances other than those prescribed or required for medical reasons: No Advance Directives: No Advance Directives Information Provided: Yes service: No Current occupational status: employed Current occupation: [employer] Cognitive needs: No Hearing needs: No Vision needs: Yes Physical Exam ED Vital Signs: Vital Signs - 24 hr 01/04/23 21:47 01/04/23 23:00 01/04/23 23:03 Temperature 98.3 F 97.6 F Pulse Rate 80 82 Respiratory Rate 20 16 16 Blood Pressure 136/86 Pulse Oximetry 99 100 Oxygen Delivery Method Room Air Room Air BMI result Body Mass Index 44.3 Appearance: Alert. Oriented X3. in pain mild acute distress. Eyes: Pupils equal, round and reactive to light. ENT: Pharynx normal. Neck: Normal inspection. Neck supple. CVS: Normal heart rate and rhythm. Pulses normal. Respiratory: No respiratory distress. Breath sounds normal. Abdomen: Soft and non-tender. L CVA ttp Skin: Skin warm and dry. Normal skin color. Normal skin turgor. Extremities: No lower extremity edema. No calf ttp Neuro: Oriented X 3. No motor deficit. No sensory deficit. Course Course Course Narrative: pain improved with IV dilaudid will observe to see if pain recurs given size of stone Reevaluation(s) Reevaluation #1: no pain wants to go home, feels better, wants to follow up as outpatient no signs of infection, able to tolerate PO, information sent to Urology for close follow up in AM - patient aware Medical Decision Making Medical Decision Making [facility] Narrative: 52 yo male with PMH of anxiety, chest pain, DM, HTN, obesity, prior renal colic here with L flank pain and n/v at this time will need basic labs, UA, CT scan for renal colic, IV dilaudid for pain Differential Diagnosis Differential Diagnoses: The differential diagnosis associated with the presentation includes renal colic, diverticulitis Admission/Observation Consideration of admission/observation: Escalation of care including admission/observation considered wants to go home, information sent to Urology for close follow up Lab Data [facility] Lab Attestation statement: I reviewed the patient's lab results. 01/04/23 21:57 01/04/23 21:57 Labs: Lab Results 01/04/23 Range/Units 21:57 WBC 10.3 (4.8-10.8) X10*3/uL RBC 5.00 (4.60-5.80) X10*6/uL Hgb 14.7 (14.0-18.0) g/dl Hct 44.0 (42.0-52.0) % MCV 88.0 (80.0-98.0) fL MCH 29.4 (27.0-33.0) pg MCHC 33.4 (31.0-36.0) g/dl RDW 13.2 (11.0-16.0) % Plt Count 225 (160-400) X10*3/uL MPV 9.8 (9.4-12.4) fL Immature Gran % (Auto) 0.5 H (0.0-0.4) % Neut % (Auto) 73.9 H (45-73) % Lymph % (Auto) 17.4 L (20-40) % [place] % (Auto) 7.1 (2-11) % Eos % (Auto) 0.9 (0-4) % Baso % (Auto) 0.2 (0-2) % Lymph # (Auto) 1.8 (1.2-4.9) X10*3/uL [place] # (Auto) 0.7 (0.1-1.2) X10*3/uL Eos # (Auto) 0.1 (0.0-0.4) X10*3/uL Baso # (Auto) 0.0 (0.0-0.2) X10*3/uL Abs Immat Gran (auto) 0.05 H (0.00-0.03) X10*3/uL Absolute Neuts (auto) 7.6 (2.0-8.3) x10*3/uL Absolute Nucleated RBC 0.000 (0.0-0.012) X10*3/uL Nucleated RBC % (auto) 0.0 (0.0-0.2) /100WBC Sodium 141 (135-145) mmol/L Potassium 4.4 (3.3-5.1) mmol/L Chloride 106 (96-108) mmol/L Carbon Dioxide 29 (22-29) mmol/L Anion Gap 10 L (12-20) BUN 16 (9-16) mg/dL Creatinine 1.33 (0.5-1.4) mg/dL Estim Creat Clear Calc 93.4 Estimated GFR 56 Random Glucose 163 H (60-115) mg/dL Calcium 9.7 D (8.4-10.2) mg/dL Total Bilirubin 0.8 (0.0-1.0) mg/dL AST 23 (5-37) U/L ALT 27 (0-40) U/L Alkaline Phosphatase 92 (39-117) U/L Total Protein 7.3 (6.5-8.0) g/dL Albumin 4.2 (3.5-5.0) g/dL Lipase 38 (8-78) U/L Urine Color Yellow Urine Appearance Cloudy Urine pH 5.5 (5.0-9.0) Ur Specific [place] 1.020 (1.005-1.025) Urine Protein 30 (1+) H (Neg-Trace) mg/dL Urine Glucose (UA) Negative (Negative) mg/dL Urine Ketones Trace (Negative) mg/dL Urine Blood Large (3+) H (Negative) Urine Nitrite Negative (Negative) Ur Leukocyte Esterase Trace H (Negative) Urine RBC >20 H (0-2) /HPF Urine WBC 6-10 H (0-5) /HPF Ur Squamous Epith Cells 0-2 (0-2) /HPF Urine Bacteria None Seen (None Seen) Hyaline Casts 0-2 (0-2) /LPF Independent Interpretation I performed an independent interpretation of an: CT Scan (L 7mm stone ureter) Radiology Impression Discussion of test interpretation with radiology: I have reviewed the radiologist's reading. External Record Review External record reviewed: Inpatient record Prescription Management I considered prescription management with: Pain Medication and Other Medications Administered Discontinued Medications Generic Name Dose Route Start Last Admin Trade Name Freq PRN Reason Stop Dose Admin Hydromorphone HCl 1 mg 01/04/23 22:31 01/04/23 23:03 Hydromorphone Hcl 1 Mg/Ml Syringe IVPUSH 01/04/23 22:32 1 mg ONCE ONE Administration Protocol Sodium Chloride 1,000 mls @ 999 mls/hr 01/04/23 22:45 01/04/23 23:04 Ns IV 01/04/23 23:45 999 mls/hr .Q1H1M AMIRAH Administration Ketorolac Tromethamine 15 mg 01/04/23 22:31 01/04/23 23:03 Ketorolac Tromethamine 15 Mg/Ml Vial IVPUSH 01/04/23 22:32 15 mg ONCE ONE Administration Ondansetron HCl 4 mg 01/04/23 22:31 01/04/23 23:03 Ondansetron Hcl 4 Mg/2 Ml Vial IVPUSH 01/04/23 22:32 4 mg ONCE ONE Administration Tamsulosin HCl 0.4 mg 01/04/23 23:13 01/04/23 23:19 Tamsulosin Hcl 0.4 Mg Capsule PO 01/04/23 23:14 0.4 mg ONCE ONE Administration Critical Care Time Critical Care Time Critical Care Time: Yes Total Critical Care Time: 35 Attestation: repeat pain assessment, improved with IV dilaudid I attest to this time spent taking care of the patient Discharge Plan Discharge Clinical Impression: Left ureteral stone Patient Disposition: Home, Self-Care Instructions: Ureteral Stones (ED) Additional Instructions: return for fevers, vomiting, worsening pain, inability to urinate or any other concerns. Urology office should be calling your in the morning there number is listed below (Dr. Serrano) if you do not hear from them please call by the afternoon. Prescriptions: New tamsulosin 0.4 mg capsule 0.4 mg PO DAILY 7 Days Qty: 7 0RF ondansetron 4 mg tablet,disintegrating 4 mg PO Q8H PRN (Reason: nausea and vomiting) Qty: 20 0RF hydromorphone [Dilaudid] 2 mg tablet 2 mg PO Q4-6H PRN (Reason: pain) Qty: 14 0RF Rx Instructions: Partial Fill upon patient request. No Action (DME) FreeStyle Lite Strips Strip See Rx Instructions .Route Qty: 100 0RF Rx Instructions: Test Daily (DME) lancets [BD Ultra-Fine II Lancets] 30 gauge misc See Rx Instructions .Route Qty: 100 0RF Rx Instructions: Test Daily (DME) blood-glucose meter [FreeStyle Lite Meter] Kit See Rx Instructions .Route Qty: 1 0RF Rx Instructions: Test Daily lisinopril 10 mg tablet 10 mg PO DAILY 90 Days Qty: 90 1RF Ozempic 0.25 mg or 0.5 mg (2 mg/3 mL) pen injector 0.25 mg subcut QWEEK 28 Days Qty: 3 2RF Rx Instructions: for 4 weeks atorvastatin 10 mg tablet 10 mg PO BEDTIME Qty: 90 0RF metformin 500 mg tablet 500 mg PO BID Qty: 180 0RF semaglutide 1 mg/dose (2 mg/1.5 mL) pen injector 1 mg subcut QWEEK 28 Days Qty: 3 3RF sildenafil 100 mg tablet 100 mg PO DAILY PRN (Reason: sexual activity) 7 Days Qty: 7 0RF hydroxyzine HCl 25 mg tablet 25 mg PO ONCE PRN (Reason: panic attacks) 10 Days Qty: 10 0RF Referrals: Kevin Serrano MD [Physician] - (today) Stand Alone Forms: Work/School Release
[2023-01-04 22:41] LABS: Appearance Urine Cloudy; Color Urine Yellow; Glucose Urine UA Negative (Negative); Leukocyte Esterase Urine Trace (Negative); Nitrite Urine Negative (Negative); PH 5.5 (5.0-9.0); UMIC TRIGGER UACC YES; Urine Blood Large (3+) (Negative); Urine Ketones Trace mg/dL (Negative); Urine Protein 30 (1+) mg/dL (Neg-Trace)
[2023-01-04 22:42] LABS: Bacteria Urine None Seen (None Seen); Hyaline Casts Urine 0-2 /LPF (0-2); RBC Urine >20 /HPF (0-2); Squamous Epithelial Cell Urine 0-2 /HPF (0-2); UACC Culture Trigger YES
[2023-01-04 23:00] VITALS: BP 136/86; PULSE 82; RESP 16; TEMP 36.4; O2SAT 100
[2023-01-04 23:03] VITALS: RESP 16
[2023-01-04] MEDS: ondansetron HCL 4 MG/2 ML VIAL IVPUSH (23:03)
[2023-01-04] MEDS: Ketorolac Tromethamine 15 MG/ML VIAL IVPUSH (23:03)
[2023-01-04] MEDS: HYDROmorphone HCl 1 MG/ML SYRINGE IVPUSH (23:03)
[2023-01-04] MEDS: 0.9 % Sodium Chloride 1,000 ML 999 ML IV (23:04)
--- NOTE | 2023-01-04 23:12 | PC.NURSE ---
Patient presenting to ED from home to be evaluated for left sided flank pain 10/10, hematuria, nausea, and two episodes of vomiting started at 5pm today. Patient reports taking few Tylenol prior to arrival to ED. Patient reports hx kidney stones. Pateint seen by ED provider, CT scan completed, 20G iv line placed in R AC. Patient medicated per APR, call max within patient's reach.
[2023-01-04] MEDS: Tamsulosin HCL 0.4 MG CAPSULE PO (23:19)
[2023-01-05] MEDS: HYDROmorphone HCl 2 MG TABLET PO (00:50)
[2023-01-05 00:52] VITALS: BP 130/82; PULSE 80; RESP 16; TEMP 36.7; O2SAT 97
== END 2023-01-05 01:02 | disposition home or self-care (01) ==
PROVIDERS: Emergency Provider Emergency Medicine; PCP Physician Assistant
DX: N20.1 Calculus of ureter (principal); M79.10 Myalgia, unspecified site; R31.9 Hematuria, unspecified; R10.32 Left lower quadrant pain; Z79.899 Other long term (current) drug therapy
CPT/HCPCS: 36415; 74176; 80053; 81001; 83690; 85025; 87086; 96361; 96374; 96375; 99284; 99285; J1170; J1885; J2405

== ENCOUNTER 2023-01-10 09:03 | Outpatient (AMB) | payer BC, SELFPAY ==
--- NOTE | 2023-01-10 14:16 | MHC.OFFVIS ---
Intake Intake Visit Reasons: ER f/u ureter stone Allergies Penicillins [PENICILLINS] Allergy (Intermediate, Verified 10/13/22 09:55) UNKNOWN HPI HPI Comments History of Present Illness Details Laith is a pleasant male. He is a patient of Dr. Tuttle. They are seen for the following urologic conditions - nephrolithiasis Telemedicine Evaluation 15 min Consultation Doximity [place] Video attempted Nephrolithiasis He presents for - initial evaluation for nephrolithiasis - seen in ER last week Presenting symptoms included left flank pain associated with nausea, hematuria Imaging - 01/19 7 mm left mid ureteric stone Laboratory investigations - 01/19 Cr 1.3 Current therapeutic plan - plan left ureteroscopy based on body habitus [facility] Medical History Diabetes mellitus Pure hypercholesterolemia Benign essential hypertension Morbid obesity with BMI of 50.0-59.9, adult Surgical History Hx of colonoscopy No pertinent past surgical history Family History Mother Diabetes CHF (congestive heart failure) High blood pressure Father No problems noted. Other Substance abuse Social History Housing: House Alcohol intake: former Patient Tobacco Use Status: Former Tobacco user Quit Date: 1989 e-Cigarette/Vaping Use: Never Used Second Hand Smoke Exposure: Yes service: No Current occupational status: employed Current occupation: [employer] Cognitive needs: No Hearing needs: No Vision needs: Yes Review of Systems Const All systems reviewed & are unremarkable except as noted in HPI and below Reports no additional complaints Resp Reports no additional complaints GI Reports no additional complaints Reports as per HPI Musc Reports no additional complaints Physical Exam Telemedicine evaluation Appropriate responses Regular breathing rate and rhythm HEENT Head: Yes normal to inspection Ears: hearing grossly normal bilaterally Eyes General: appearance normal, both eyes and all related structures Neck Neck: Yes normal visual inspection Chest Chest palpation & inspection: normal inspection of the chest Resp Effort & Inspection: normal respiratory effort and able to speak in complete sentences Assessment & Plan Assessment & Plan (1) Nephrolithiasis: Code(s): N20.0 - Calculus of kidney Plan Ureteroscopy We discussed the nature of the decision and reasonable alternatives for performing ureteroscopy. Options such as medical therapy were discussed. Interventions include chemical dissolution, ESWL, ureteroscopy with laser lithotripsy and stent placement, PCNL. The relative uncertainties and benefits related to each alternate procedure were adequately discussed. General surgical risks including, but not limited to - pain, bleeding, infection, myocardial infarction, pulmonary embolus, deep vein thrombosis and cerebrovascular accident which may result in further hospitalization were discussed. Full disclosure of the procedure as well as all major risks, benefits and complications were discussed including but not limited to damage to the urethra, bladder and kidney infection, damage to the ureter, stent migration or malposition, scarring to the renal pelvis, remnant stone fragments, subsequent stone passage with need for secondary procedures. The overall secondary procedure rate is approximately 10-15%. The overall clearance rate is approximately 90-95%. Success of the procedure in the short-term does not necessarily guarantee that long-term success will be maintained. Suitable follow up will need to be maintained. The patient showed understanding of discussion and wishes to proceed with - cystoscopy, retrograde, ureteroscopy, possible lithotripsy/stone basketing and stent on the left side Patient Instructions: Imaging studies, laboratory and physical exam results were discussed and reviewed in detail. No major barriers to patient understanding were identified. An opportunity to ask questions regarding the treatment plan was provided. All questions were answered. The patient expressed understanding and agreement with the above treatment plan. The patient is aware they should contact our office by phone for worsening of their current condition or the appearance of new urologic symptoms. Compliance is encouraged with any medications and followup testing that is ordered. It is a privilege to participate in the urologic care of your patient. If you have any questions or concerns regarding treatment for the above conditions, or other urologic issues, please do not hesitate to contact me. The office telephone contact is [phone]. This note is constructed using voice recognition software. While every effort has been made to ensure accuracy human resources operations specialist errors may have been included. Yours sincerely, Dr Kevin Serrano MD, [facility] - Urology Providers of Expert, Compassionate Care for the Genitourinary System Telehealth Telehealth Location of provider rendering services: practice address Location of patient: address on file Patient Identification confirmed using: Name, : Yes Telehealth method: video Patient verbally consented to treatment: Yes Patient verbally consented to billing insurance company: Yes Patient informed of any privacy concerns related to visit: Yes Coding Level of Care Code Tele New Pt Level 4 (40110) Diagnoses Nephrolithiasis N20.0
== END 2023-01-10 14:30 ==
LOC: HO.HUSH 09:04
PROVIDERS: PCP Physician Assistant; Visit Provider Urology
DX: N20.0 Calculus of kidney (principal)
CPT/HCPCS: 99204

== ENCOUNTER → 2023-01-10 09:03 | Outpatient (BNVA) | payer BC, SELFPAY | PROVIDERS: PCP Physician Assistant; Visit Provider Urology ==

== ENCOUNTER 2023-01-23 14:59 | Day surgery (SDC) | payer BC, SELFPAY ==
[2023-01-23] VITALS (7 sets, daily range): BP systolic 128–141; BP diastolic 82–92; PULSE 84–99; RESP 14–20; TEMP 36.1–36.6; O2SAT 96–99; BMI 44.3
--- NOTE | ~2023-01-23 | FL_ITS ---
EXAMINATION: XR FLUOROSCOPY WITH IMAGES CLINICAL INFORMATION: Cystoscopy, ureteroscopy, retrograde, left. COMPARISON: Previous CT of the abdomen and pelvis December 2022 TECHNIQUE: Fluoroscopy Supervised By: Dr. Kevin Serrano. Fluoroscopy Time: 27.7 seconds. Cumulative Dose: 20.27 mGy. DAP: Not available on C-arm. Images: 2. FINDINGS: Images demonstrate a left internal ureteral stent in satisfactory position. FL/FL guidance in OR IMPRESSION: Fluoroscopy guidance for left ureteral stent placement
[2023-01-23] MEDS: levoFLOXacin 500 MG TABLET PO (16:05)
--- NOTE | 2023-01-23 16:39 | MHC.SHP ---
Pre-Procedural Eval Section A Date of Service: 01/23/23 The patient is an INPATIENT: No Changes since office visit: No Cold of Flu in the past 2 weeks, No New Medical Problems, No Changes in Medication and No Patient answered all questions The History & Physical has been completed within 30 days and I have reviewed it.: Yes Section B Chief Complaint: Calculus of kidney Details of Present Illness: left upper ureteric stone Relevant Family History (Specify if Yes): No Relevant Social History: None Present Medications: see Short Stay Collaborative assessment Medical History: No relevant PMH History of Previous Operations: No relevant previous surgery Allergies: Allergies Allergy/AdvReac Type Severity Reaction Status Date / Time Penicillins [PENICILLINS] Allergy Intermediate UNKNOWN Verified 10/13/22 09:55 Review of Systems Sugical H&P ROS: Negative: Constitution, Cardiovascular, Respiratory, Neurological, Psychiatric, Hem-Onc, Allergic/Immunologic, Gastrointestinal, Genitourinary, Musculoskeletal, Integumentary, Endocrine and Eyes/Ears/Nose/Throat Exam Surgical H&P Exam: Normal: HEENT, Normal: Heart, Normal: Lungs, Normal: Extremities, Normal: Abdomen, Normal: Skin and Normal: Neurological Plan Diagnosis/Plan: Unchanged (cystoscopy, left retrograde, ureteroscopy, laser, stent) I have reviewed the history and physical and performed a pertinent physical examination on my patient. No changes have occurred unless specified. Time Spent With Patient Time: Total time managing care of this patient today ____ minutes.
--- NOTE | 2023-01-23 16:40 | HO.ANESPROP2 ---
HPI - Anesthesia Eval Consult details Narrative: for cysto, retro, laser, stent Anesthesia Pre-Procedure Meds Is the patient on any of the following meds?: Semaglutide (Ozempic) If Yes to any meds - educate patient: Pt education - increased risk of aspiration PMFSH Active Problems Active Problems: All Active Problems (Updated 01/10/23 @ 14:39 by Kevin Serrano MD) Nephrolithiasis (Acute) YAMILE (generalized anxiety disorder) (Acute) Hemorrhoids (Acute) Tubular adenoma (Acute) RUQ abdominal pain (Acute) Erectile dysfunction (Acute) Low libido (Acute) Obese (Acute) Obese (Acute) Atypical chest pain (Acute) Diabetes mellitus (Acute) Pure hypercholesterolemia (Acute) Benign essential hypertension (Acute) Colon cancer screening (Acute) Morbid obesity with BMI of 50.0-59.9, adult (Acute) Annual physical exam (Acute) Past Medical History Medical History Diabetes mellitus Pure hypercholesterolemia Benign essential hypertension Morbid obesity with BMI of 50.0-59.9, adult Family History Family History Mother Diabetes CHF (congestive heart failure) High blood pressure Father No problems noted. Other Substance abuse Family history of problems with anesthesia: No Surgical History Surgical History Hx of colonoscopy No pertinent past surgical history History of Problems with Anesthesia: No Social History Housing: House Alcohol intake: former Patient Tobacco Use Status: Former Tobacco user Quit Date: 1989 e-Cigarette/Vaping Use: Never Used Second Hand Smoke Exposure: Yes Use of substances other than those prescribed or required for medical reasons: No Are you DNR?: No Advance Directives: No Advance Directives Information Provided: Yes service: No Current occupational status: employed Current occupation: [employer] Cognitive needs: No Hearing needs: No Vision needs: Yes Meds Allergies Allergy/AdvReac Type Severity Reaction Status Date / Time Penicillins [PENICILLINS] Allergy Intermediate UNKNOWN Verified 10/13/22 09:55 Active Medications: Ozempic. Taken yesterday. D/W Dr. Serrano. Emergent procedure, needs to be done. Exam Height,Weight and Vital Signs: Height 5 ft 11 in Weight 144.242 kg Last Vital Signs Temp 98 F 01/23/23 15:58 Pulse 97 01/23/23 15:58 Resp 20 01/23/23 15:58 BP 141/92 H 01/23/23 15:58 Pulse Ox 97 01/23/23 15:58 O2 Del Method Room Air 01/23/23 15:58 Airway Mallampati Class: I TM Dist: >3cm Neck ROM: Full Loose/Missing/Broken Teeth: No Heart: ok Lungs: ok Assessment and Plan Assessment Anesthesia Assessment: Anesthesia Plan Discussed and Chart Reviewed Final Anesthetic Review Family History of Problems with Anesthesia: No History of Problems with Anesthesia: No NPO: Yes ASA Class: III and Emergency Final Preanesthetic Review: No Changes in Pt Med Stat, Meds/Allgs Chart Reviewed, Consent Obtained/Reviewed and Anes Risks/Benef Reviewed Patient Risk: High Procedure Risk: Low Anesthetic Plan Anesthetic Plan: GA (w RSI) and Agree w/ Assess. and Plan Disposition: Standard PACU
--- NOTE | 2023-01-23 17:52 | W.PM.OPN ---
Operative Note Operative Note Date of Service: 01/23/23 Narrative: PreOperative Diagnosis: left mid ureteric stone Post Operative Diagnosis: left mid ureteric stone Procedure: - cystoscopy, left retrograde - left dilatation of ureteric orifice under fluoroscopy - left ureteroscopy, laser lithotripsy, stone basketing - left stent placement Surgeon: Dr Kevin Serrano Anesthesia: General Indications for procedure: Left mid ureteral stone with persistent pain and current presentation through emergency room. Procedure: After informed consent was verified patient was brought to the operating placed in supine position. Anesthesia was administered per protocol. Patient was placed in modified dorsal lithotomy position and prepped and draped in a sterile fashion. Safety pause time-out and side of surgery confirmed. Antibiotics confirmed. 22 Croatian cystoscope was inserted per urethra. Bladder was normal in its entirety. Both ureteric orifices were in normal position. The left ureteric orifice was cannulated and a retrograde examination was performed. Filling defect at the junction between proximal and mid left ureter.. A Sensor guidewire was placed up to the level of the renal pelvis under fluoroscopy. The rigid cystoscope was removed and the inner cannula of ureteric access sheath was used under fluoroscopy to dilate the ureteric orifice. The ureteric access sheath was placed and the inner cannula with access wire removed. The digital flexible ureteral scope was placed. Stone was encountered at the junction between the mid and proximal ureter. Using the holmium laser 275 the stone was broken into small pieces. A Zero tip 1.9 Croatian basket was used to remove fragments. After ureter was cleared the scope was advanced in the renal pelvis. Renal pelvis certainly had effacement of calices consistent with hydronephrosis. No further stone fragments was seen after examination renal pelvis. At the completion of the stone procedure a Sensor wire was placed back into the renal pelvis. The rigid cystoscope was backloaded over the wire and advanced into the bladder. A 6 Croatian by variable length cm double-J stent was placed into the renal pelvis and bladder under a combination of fluoroscopy and direct visualization. The bladder was emptied. The patient tolerated the procedure well and was extubated in the operating room, and transferred in stable condition to the recovery area. Pathology: Stones Drains: 6 Croatian by variable length stent
[2023-01-23] MEDS: Phenazopyridine HCL 100 MG TABLET PO (18:28)
[2023-01-31 17:32] LABS: Stone Source KIDNEY STONE
== END 2023-01-23 19:00 | disposition home or self-care (01) ==
PROVIDERS: PCP Physician Assistant; Visit Provider Urology
PROC: (CPT 52356; principal; 2023-01-23 17:00)
DX: N20.1 Calculus of ureter (principal); E78.00 Pure hypercholesterolemia, unspecified; I11.0 Hypertensive heart disease with heart failure; E11.9 Type 2 diabetes mellitus without complications; E66.01 Morbid (severe) obesity due to excess calories; Z68.43 Body mass index [BMI] 50.0-59.9, adult; Z98.85 Transplanted organ removal status; Z88.0 Allergy status to penicillin; Z87.891 Personal history of nicotine dependence
CPT/HCPCS: 52356; 82365; 88300; C1758; C1769; C1894; C2617; J0131; J2250; J2704; J3010; Q9967

== ENCOUNTER → 2023-01-23 14:59 | Outpatient (BNV) | payer BC, SELFPAY | PROVIDERS: PCP Physician Assistant; Visit Provider Urology | DX: N20.1 Calculus of ureter (principal) | CPT/HCPCS: 52356; 74420 ==

== ENCOUNTER 2023-01-25 08:50 | Outpatient (AMB) | payer BC, SELFPAY ==
--- NOTE | 2023-01-25 09:01 | MHC.PC.OV ---
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: Not Required per policy Accompanied by: Self / Same As Patient Allergies Penicillins [PENICILLINS] Allergy (Intermediate, Verified 01/25/23 09:13) UNKNOWN Medication List - Last Reconciled 01/25/23 by Antonio Tuttle PA-C atorvastatin 10 mg PO BEDTIME blood sugar diagnostic (FreeStyle Lite Strips) Test Daily blood-glucose meter (FreeStyle Lite Meter kit) Test Daily hydromorphone (Dilaudid) 2 mg PO Q4-6H PRN hydroxyzine HCl 25 mg PO ONCE PRN 10 days lancets (BD Ultra-Fine II Lancets) Test Daily lisinopril 10 mg PO DAILY 90 days metformin 500 mg PO BID naproxen 500 mg PO BID PRN 7 days ondansetron 4 mg PO Q8H PRN phenazopyridine (Pyridium) 100 mg PO TID PRN 4 days semaglutide (Ozempic) 0.25 mg (0.368 mL) subcut QWEEK 4 weeks semaglutide 1 mg (0.75 mL) subcut QWEEK 4 weeks sildenafil 100 mg PO DAILY PRN 7 days tamsulosin 0.4 mg PO BEDTIME 14 days tamsulosin 0.4 mg PO DAILY 7 days tramadol 50 mg PO Q6H PRN Tobacco use date assessed: 01/25/23 Dental Screening Dental Screen Date: 01/25/23 Did you have a dental visit in the last 12 months?: No Did you have a dental problem in the last 6 months where you did not have access to dental care?: No Was dental information given to patient?: No HPI f/u DMII/ HTN - weight check HPI Details Patient is a 52-year-old male here today for follow-up visit. Patient has a past medical history significant for type 2 diabetes, hyperlipidemia, hypertension, morbid obesity. Patient recently seen at the [facility] for acute flank pain. Was found to have kidney stone that needed surgical removal. Recently underwent removal of kidney stone a January 23. He reports he continues to some bilateral flank pain and gross hematuria and is concerned about this. Urinalysis today in office showing 3+ leukocytes, +nitrates and 3+ blood. Will send for urine culture. Otherwise denies any fevers or chills Does have follow-up for urinary stent removal on February 02 with Urology. CHRONIC MEDICAL CONDITIONS--> .. Type 2 diabetes:? Has been started on Ozempic and has noted some weight loss. Continues on metformin 500 b.i.d.. . ?He would like to use injectable therapy for his diabetes and for added benefit of weight loss. .. Hypertension:? Blood pressure today in office acceptable.? Will continue him on his current dose of lisinopril.? He denies any headaches , chest discomforts or dizziness. . Hyperlipidemia:? Continues on statin therapy without any side effect.? Most recent LDL above 100.? Will recheck fasting lipid panel fullness above 100 will consider increasing potency of statin PFSH Medical History Diabetes mellitus Pure hypercholesterolemia Benign essential hypertension Morbid obesity with BMI of 50.0-59.9, adult Surgical History Hx of colonoscopy No pertinent past surgical history Family History Mother Diabetes CHF (congestive heart failure) High blood pressure Father No problems noted. Other Substance abuse Social History Housing: House Alcohol intake: current Alcohol intake frequency: holidays/special occasions only Alcohol type: beer and hard liquor Patient Tobacco Use Status: Former Tobacco user Quit Date: 1989 e-Cigarette/Vaping Use: Never Used Second Hand Smoke Exposure: Yes service: No Current occupational status: employed Current occupation: [employer] Cognitive needs: No Hearing needs: No Vision needs: Yes Questionnaire PHQ-9 Over the last 2 weeks, how often have you been bothered by any of the following problems? 1. Little interest or pleasure in doing things: not at all 2. Feeling down, depressed, or hopeless: not at all 3. Trouble falling or staying asleep, or sleeping too much: not at all 4. Feeling tired or having little energy: not at all 5. Poor appetite or overeating: not at all 6. Feeling bad about yourself - or that you are a failure or have let yourself or your family down: not at all 7. Trouble concentrating on things, such as reading the newspaper or watching television: not at all 8. Moving or speaking so slowly that other people could have noticed. Or the opposite - being so fidgety or restless that you have been moving around a lot more than usual: not at all 9. Thoughts that you would be better off or of hurting yourself in some way: not at all Total score: 0 Depression Screening Interpretation: Negative Depression Screening Done: Yes 49114 - PHQ-9 Billing: Yes Source: Developed by Drs. Josse Ortiz, Eda Patrick, Danilo Dumas and colleagues, with an educational alok from [employer]. Thrive Questionnaire Date Thrive assessed: 01/25/23 I am a: Patient What is your living situation today?: I have a steady place to live Within the past 12 months, did the food you bought not last and you didn't have the money to get more?: Never true Within the past 12 months, did you worry whether your food would run out before you got money to buy more?: Never true Do you have trouble paying for medicines?: No Do you have trouble getting transportation to medical appointments?: No Do you have trouble paying your heating and electricity bill?: No Do you have trouble taking care of your child, family member or friend?: No Do you have trouble with day-to-day activities such as bathing, preparing meals, shopping, managing finances, etc.?: No Are you currently unemployed and looking for a job?: No Are you interested in more education?: No Please select the resources that you would like help with: None Currently or been in a relationship where the following occur: no concerns reported AUDIT C Alcohol Use Questionnaire (AUDIT-C) 1. How often do you have a drink containing alcohol?: Never 3. How often do you have six or more drinks on one occasion?: Never Total Score: 0 YAMILE-7 AMB Questionnaire YAMILE-7 Date YAMILE - 7 assessed: 01/25/23 Feeling nervous, anxious, or on edge: 0 = Not at all Not being able to stop or control worryin = Not at all Worrying too much about different things: 0 = Not at all Trouble relaxin = Not at all Being so restless that it is hard to sit still: 0 = Not at all Becoming easily annoyed or irritable: 0 = Not at all Feeling afraid as if something awful might happen: 0 = Not at all Total YAMILE-7 score (0-4 normal; 5-9 mild; 10-14 moderate; 15-21 severe): 0 Source: Developed by Drs. Josse Ortiz, Eda Patrick, Danilo Dumas and colleagues, with an educational alok from [employer]. YAMILE-7 Assessment Billing YAMILE-7 Assessment Tool: YAMILE-7 Assessment 68840 Review of Systems Const Denies headache(s) Eyes Denies loss of vision ENT Denies vertigo, Denies dizziness, Denies headache(s) and Denies sore throat Card Denies chest pain, Denies leg edema and Denies lightheadedness Resp Denies cough, Denies hemoptysis and Denies wheezing GI Denies abdominal pain, Denies melena, Denies constipation, Denies diarrhea and Denies vomiting Denies dysuria, Denies urinary frequency and Denies urinary urgency Musc Denies arthralgias, Denies joint swelling, Denies numbness and Denies tingling Neuro Denies Abnormal speech present, Denies behavioral changes, Denies vertigo, Denies dizziness, Denies headache(s), Denies loss of vision, Denies memory loss, Denies numbness and Denies tingling Psych Denies anxiety, Denies behavioral changes, Denies depression, Denies memory loss and Denies panic attacks Mohan/Lymph Denies easy bleeding and Denies easy bruising Aller/Immun Denies wheezing Physical exam (Primary Care) Vital Signs: Last Vital Signs Pulse 96 01/25/23 09:02 BP 124/82 01/25/23 09:02 Pulse Ox 98 01/25/23 09:02 Oxygen Delivery Method Room Air 01/25/23 09:02 BMI result Body Mass Index 45.6 Tobacco/Smoking Status: Tobacco use Status Tobacco use date assessed 01/25/23 01/25/23 09:06 Patient Tobacco Use Status Former Tobacco user 01/25/23 09:02 e-Cigarette/Vaping Use Never Used 01/25/23 09:02 PHQ-9: PHQ-9 Score PHQ-9: Total score 0 01/25/23 09:32 Depression Screening Interpretation: Negative Thrive Assessment: Date of Thrive Assessment Date Thrive assessed 01/25/23 01/25/23 09:06 Currently or been in a relationship where the following occur: no concerns reported Const General: healthy appearing, no acute distress, alert and awake Nutritional Appearance: well nourished Orientation/consciousness: oriented to person, oriented to place and oriented to time HENMT Ears: TM's normal bilaterally General nose exam: Normal nasal mucous membranes and turbinates present Eyes Conjunctivae: conjunctivae normal Sclerae: sclerae normal Pupils: Equal, round and reactive pupils present Neck Neck: Yes no lymphadenopathy and Yes no JVD Thyroid: Thyroid normal Carotids: no bruits Resp Effort & Inspection: normal respiratory effort and not tachypneic Auscultation: no crackles, no rales, no rhonchi and no wheezes Cardio Rate: regular rate Rhythm: regular rhythm Heart sounds: no murmurs and normal S1 and S2 GI Palpation (GI): Soft to palpation, nontender, no hepatomegaly and no splenomegaly Auscultation: normal bowel sounds Skin General skin exam: no rashes or lesions noted and dry skin Neuro General: oriented to person, oriented to place and oriented to time Cranial nerves: Yes Equal, round and reactive pupils present Speech: No Abnormal speech present Gait exam (Neuro): Normal gait present Motor exam (neuro): no tremor noted Extrem Right upper extremity: full ROM Left upper extremity: full ROM Right lower extremity: full ROM; no edema Left lower extremity: full ROM; no edema Psych Mental Status: mental status grossly normal Speech and movement: Normal speech and movement present Affect: normal affect Attitude: cooperative Thought process: Normal thought process present Results AMB Hemoglobin A1c AMB Hemoglobin A1c 6.5 % Last Edit by David Noriega on 01/25/23 09:19 AMB Urinalysis, Automated UA Leukoctes 500 Benita/uL Last Edit by ISIDRA Ortiz on 01/25/23 09:36 UA Nitrite Positive Last Edit by ISIDRA Ortiz on 01/25/23 09:36 UA Urobilinogen 4 mg/dL Last Edit by ISIDRA Ortiz on 01/25/23 09:36 UA Protein 100 mg/dL Last Edit by ISIDRA Ortiz on 01/25/23 09:36 UA pH 6.0 Last Edit by ISIDRA Ortiz on 01/25/23 09:36 UA Blood 200 Des/uL Last Edit by ISIDRA Ortiz on 01/25/23 09:36 UA Specific [place] 1.025 Last Edit by ISIDRA Ortiz on 01/25/23 09:36 UA Ketone Positive Last Edit by ISIDRA Ortiz on 01/25/23 09:36 UA Bilirubin 1 mg/dL Last Edit by ISIDRA Ortiz on 01/25/23 09:36 UA Glucose 0 mg/dL Last Edit by ISIDRA Ortiz on 01/25/23 09:36 Urine is pure red. Results Reviewed Results Reviewed: Laboratory Last Values Hgb A1c (Clinic) 6.5 % (4.0-6.0) H 01/25/23 09:08 Urine pH (Auto) 6.0 01/25/23 09:32 Specific [place] (Auto) 1.025 01/25/23 09:32 Urine Protein (Auto) 100 mg/dL 01/25/23 09:32 Glucose (UA)(Auto) 0 mg/dL 01/25/23 09:32 Urine Ketones (Auto) Positive 01/25/23 09:32 Urine Blood (Auto) 200 Des/uL 01/25/23 09:32 Urine Nitrite (Auto) Positive 01/25/23 09:32 Urine Bilirubin (Auto) 1 mg/dL 01/25/23 09:32 Urine Urobilinogen (Auto) 4 mg/dL 01/25/23 09:32 Leukocyte Esterase (Auto) 500 Benita/uL H 01/25/23 09:32 Assessment and Plan Assessment & Plan (1) Nephrolithiasis: Code(s): N20.0 - Calculus of kidney Plan: As per HPI. Patient's urinalysis showing 3+ leukocytes and nitrates. Continues to have gross hematuria 48 hours after urinary stent placed. Does have follow-up with Urology February 02 for stent removal. Will prophylactically treat with ciprofloxacin for possible infection. Will send urine culture (2) Pure hypercholesterolemia: Code(s): E78.00 - Pure hypercholesterolemia, unspecified Plan: Patient's most recent lipid panel showing appropriate total cholesterol and LDL. Will continue current statin therapy with goal LDL to remain below 100. (3) Benign essential hypertension: Code(s): I10 - Essential (primary) hypertension Plan: Patient's blood pressure today in office acceptable. Will continue current dose of lisinopril with goal blood pressure to remain below 140/90 (4) Diabetes mellitus: Comment: I am unable to review his most recent blood work-however he in his are informed. Reportedly his hemoglobin A1c has improved Reviewed PCP note Code(s): E11.9 - Type 2 diabetes mellitus without complications Qualifiers: Diabetes mellitus type: type 2 Diabetes mellitus skilled nursing insulin use: without skilled nursing use Diabetes mellitus complication status: with hyperglycemia Qualified Code(s): E11.65 - Type 2 diabetes mellitus with hyperglycemia Plan: Patient's A1c today 6.5. Patient has type 2 diabetes well controlled. Has been started on Ozempic and now at 1 mg weekly. Will continue current dose of metformin 500 b.i.d.. Goal A1c is to remain below 7.0 Orders: Orders AMB Hemoglobin A1c Today E11.9 - Type 2 diabetes mellitus without complications Urine Culture Today N20.0 - Calculus of kidney AMB Urinalysis Automated Today N20.0 - Calculus of kidney Medications: New ciprofloxacin HCl 250 mg PO BID 4 days 8 tabs 0RF N20.0 - Calculus of kidney Coding Level of Care Code Est Pt Level 4 (64684) Diagnoses Nephrolithiasis N20.0 Pure hypercholesterolemia E78.00 Benign essential hypertension I10 Type 2 diabetes mellitus with hyperglycemia, without long-term current use of insulin E11.65 Diabetes mellitus type: type 2 Diabetes mellitus ocean transportation intermediary insulin use: without ocean transportation intermediary use Diabetes mellitus complication status: with hyperglycemia Additional Codes YAMILE-7 Assessment Billing - YAMILE-7 Assessment Tool: YAMILE-7 Assessment 28389 ([id number])
[2023-01-25 09:02] VITALS: BP 124/82; PULSE 96; O2SAT 98; BMI 45.6
== END 2023-01-25 09:48 | disposition home or self-care (01) ==
PROVIDERS: PCP Physician Assistant; Visit Provider Physician Assistant
DX: N20.0 Calculus of kidney (principal); E78.00 Pure hypercholesterolemia, unspecified; I10 Essential (primary) hypertension; E11.65 Type 2 diabetes mellitus with hyperglycemia; E11.9 Type 2 diabetes mellitus without complications
CPT/HCPCS: 81003; 83036; 99214

== ENCOUNTER 2023-01-25 12:29 | Outpatient (REF) | payer BC, SELFPAY | END 2023-01-25 12:30 | disposition home or self-care (01) | LOC: HO.LNP 12:29 | PROVIDERS: Visit Provider Physician Assistant | DX: Z13.89 Encounter for screening for other disorder (principal) ==

== ENCOUNTER 2023-01-26 08:50 | Outpatient (REF) | payer BC, SELFPAY | END 2023-01-26 08:51 | disposition home or self-care (01) | LOC: HO.LNP 08:50 | PROVIDERS: Visit Provider Physician Assistant | DX: N20.0 Calculus of kidney (principal) | CPT/HCPCS: 87086 ==

== ENCOUNTER 2023-02-02 12:36 | Outpatient (AMB) | payer BC, SELFPAY ==
--- NOTE | 2023-02-02 12:59 | A.OFFVIS_ITS ---
Intake Intake Visit Reasons: S/P OR cysto/stent removal Intake Note: Patient presents for cystoscopy/stent removal Urology Medications: none Blood Thinner: none Investment Counselor Required: No Accompanied by: Self / Same As Patient Allergies Penicillins [PENICILLINS] Allergy (Intermediate, Verified 02/03/23 19:14) UNKNOWN Medication List - Last Reconciled 02/02/23 by WENDY Ruelas atorvastatin 10 mg PO BEDTIME blood sugar diagnostic (FreeStyle Lite Strips) Test Daily blood-glucose meter (FreeStyle Lite Meter kit) Test Daily hydroxyzine HCl 25 mg PO ONCE PRN 10 days lancets (BD Ultra-Fine II Lancets) Test Daily lisinopril 10 mg PO DAILY 90 days metformin 500 mg PO BID naproxen 500 mg PO BID PRN 7 days ondansetron 4 mg PO Q8H PRN semaglutide (Ozempic) 0.25 mg (0.368 mL) subcut QWEEK 4 weeks semaglutide 1 mg (0.75 mL) subcut QWEEK 4 weeks sildenafil 100 mg PO DAILY PRN 7 days tamsulosin 0.4 mg PO BEDTIME 14 days HPI HPI Comments History of Present Illness Details Yo is a pleasant 52-year-old male patient of Dr. Tuttle. He has a past medical history diabetes mellitus, hypercholesteremia, hypertension, and obesity. He presents to the office today for a follow-up of his nephrolithiasis. Of note, patient previously underwent cystoscopy, left retrograde, left dilatation of ureteric orifice under fluoroscopy, left ureteroscopy, laser lithotripsy, stone basketing, left stent placement with Dr. Serrano on 01/23/2023. He presents to the office today for a cystoscopy left- sided ureteral stent removal. Procedure performed. Patient tolerated procedure well. He discusses having a longstanding history of nephrolithiasis however has never required surgical intervention up until approximately 2 weeks ago. Discussed at length potential causes of nephrolithiasis. In office urinalysis results reviewed with the patient today. Stone analysis reviewed with the patient today. 60% calcium oxalate dehydrate, 20% calcium oxalate monohydrate, 20% carbonate apatite. Discussed obtaining metabolic work work with 24 hour urine collection and labs as well as imaging. Discussed and stressed the importance of drinking plenty of water daily. He otherwise offers no issues or concerns at this time. [facility] Medical History Diabetes mellitus Pure hypercholesterolemia Benign essential hypertension Morbid obesity with BMI of 50.0-59.9, adult Surgical History Hx of colonoscopy No pertinent past surgical history Family History Mother Diabetes CHF (congestive heart failure) High blood pressure Father No problems noted. Other Substance abuse Social History Household Members: Family Housing: House Do you presently have visiting nurse or other home services: No Alcohol intake: current Alcohol intake frequency: does not drink Alcohol type: beer and hard liquor Patient Tobacco Use Status: Former Tobacco user Quit Date: 1989 Smoked in Last 30 Days: No e-Cigarette/Vaping Use: Never Used Second Hand Smoke Exposure: Yes Use of substances other than those prescribed or required for medical reasons: No Currently Displaying Signs/Symptoms of Drug Intoxication Withdrawal: No Do you feel safe in your current relationship?: Yes Advance Directives: No Advance Directives Information Provided: No Do you have thoughts of harming others: None Do you have a plan to hurt others: No Plan Recently lost weight without trying: No Nutrition Risks: No Nutritional Risk service: No Current occupational status: employed Current occupation: [employer] Cognitive needs: No Hearing needs: No Vision needs: Yes Review of Systems Const Reports no additional complaints Eyes Reports no additional complaints ENT Reports no additional complaints Card Reports as per HPI Resp Reports no additional complaints GI Reports no additional complaints Reports as per HPI Musc Reports no additional complaints Neuro Reports no additional complaints Psych Reports no additional complaints Endo Reports as per HPI Mohan/Lymph Reports no additional complaints Aller/Immun Reports no additional complaints Physical Exam Const General: cooperative, healthy appearing, comfortable, no acute distress, well developed, alert and awake Nutritional Appearance: overweight Orientation/consciousness: patient oriented x3 Limitations: no limitations HEENT Head: Yes normal to inspection, Yes normocephalic and Yes atraumatic Ears: hearing grossly normal bilaterally Eyes General: appearance normal, both eyes and all related structures Neck Neck: Yes normal visual inspection and Yes trachea midline Chest Chest palpation & inspection: normal inspection of the chest Resp Effort & Inspection: normal respiratory effort and able to speak in complete sentences Cardio Rate: regular rate GI Inspection: Yes normal to inspection General: Yes no CVA tenderness Penis: normal penis and uncircumcised Meatus: meatus normal Back/Spine/Pelvis Back: no CVA tenderness Skin General skin exam: no rashes or lesions noted Neuro General: patient oriented x3 Extrem General: Yes normal to inspection Psych Appearance: grossly normal and well kempt Mental Status: mental status grossly normal Speech and movement: Normal speech and movement present and Clear speech present Affect: normal affect Attitude: cooperative Thought process: Normal thought process present Thought content: Normal thought content present Insight: Fair insight present (Psych) Judgement: Fair judgement present (Psych) Office Procedures Cystoscopy Consent Discussed risk and benefit or proposed procedure with the patient. Information consent for procedure given to the patient. Discussed technical aspects, risks, benefits and alternatives in full. Addressed all of the patient's questions and concerns regarding the procedure. The patient demonstrated knowledge and understanding. They wish to proceed with this procedure. Preparation The patient was prepped in the usual manner. A footwear sales representative was present and in the room. Genitalia was prepped with betadine solution in a sterile manner. Lidocaine Jelly 2% was placed into the urethra and 16Fr flexible Olympus cystoscope was inserted into the meatus after adequate lubrication. Procedure A well lubricated 16 Irish cystoscope was placed No abnormality noted of urethra during placement Hematuria noted. Indwelling stent seen within bladder emerging from left ureteric orifices The stent was grasped with a 3 prong grasper and removed without difficulty Of patient tolerated procedure well. [id number] with stent removal DISPOSABLE SCOPE URO-G FLEXIBLE SCOPE Procedure code (CPT) selection complete Office Meds lidocaine HCl 2 % mucosal jelly in applicator Performing Provider: WENDY Ruelas Performing Location: [facility] Administered by: Ruth Ann RN on 02/02/23 13:25 Dose Route Admin Location Dispensed Lot Number Expiration Date [facility] [employer] 10 mL intra-urethral 10 mL nitrofurantoin monohydrate/macrocrystals 100 mg capsule Performing Provider: WENDY Ruelas Performing Location: [facility] Administered by: Ruth Ann RN on 02/02/23 13:25 Dose Route Admin Location Dispensed Lot Number Expiration Date [facility] [employer] 100 mg PO 1 cap naproxen 500 mg tablet Performing Provider: WENDY Ruelas [facility] Administered by: Ruth Ann RN on 02/02/23 13:25 Dose Route Admin Location Dispensed Lot Number Expiration Date [facility] [employer] 500 mg PO 1 tab Results AMB Urinalysis, Automated UA Leukoctes 125 Benita/uL Last Edit by Cande Chaney on 02/02/23 13:28 UA Nitrite Negative Last Edit by Brandyce Bress on 02/02/23 13:28 UA Urobilinogen 0.2 mg/dL Last Edit by Brandyce Bress on 02/02/23 13:28 UA Protein 100 mg/dL Last Edit by [employer] [facility] [employer] on 02/02/23 13:28 UA pH 6.0 Last Edit by [employer] on 02/02/23 13:28 UA Blood 200 Des/uL Last Edit by [employer] Mad[employer] on 02/02/23 13:28 UA Specific [place] 1.030 Last Edit by Brandyce Bress on 02/02/23 13:28 UA Ketone Negative Last Edit by [facility] Bress on 02/02/23 13:28 UA Bilirubin 0 mg/dL Last Edit by [employer] Madisons[facility] on 02/02/23 13:28 UA Glucose 0 mg/dL Last Edit by [facility] Bress on 02/02/23 13:28 Results Reviewed Results Reviewed: Laboratory Last Values Urine pH (Auto) 6.0 02/02/23 13:23 Specific [place] (Auto) 1.030 02/02/23 13:23 Urine Protein (Auto) 100 mg/dL 02/02/23 13:23 Glucose (UA)(Auto) 0 mg/dL 02/02/23 13:23 Urine Ketones (Auto) Negative 02/02/23 13:23 Urine Blood (Auto) 200 Des/uL 02/02/23 13:23 Urine Nitrite (Auto) Negative 02/02/23 13:23 Urine Bilirubin (Auto) 0 mg/dL 02/02/23 13:23 Urine Urobilinogen (Auto) 0.2 mg/dL 02/02/23 13:23 Leukocyte Esterase (Auto) 125 Benita/uL 02/02/23 13:23 Assessment & Plan Assessment & Plan (1) Nephrolithiasis: Code(s): N20.0 - Calculus of kidney Plan In office urinalysis results reviewed with the patient today; as noted above. Cystoscopy performed left-sided ureteral stent was removed; patient tolerated procedure well. Discussed at length potential causes of nephrolithiasis. Discussed further nephrolithiasis workup with 24 hour urine collection, labs, and imaging. Discussed composition of stone Discussed and stressed the importance of drinking plenty of water daily. Start vitamin B6 as discussed and prescribed. Will obtain renal ultrasound in 3 months Follow-up in 3 months with imaging to be completed prior; or sooner with any issues, concerns, and or questions. Orders: Orders AMB Urinalysis Automated 02/02/23 Z13.9 - Encounter for screening, unspecified Kodi Murray MD AMB Cystoscopy 02/02/23 N20.0 - Calculus of kidney WENDY Ruelas US renal BI 3 Months N20.0 - Calculus of kidney WENDY Ruelas Medications: New pyridoxine (vitamin B6) 100 mg PO DAILY 90 days 90 tabs 1RF WENDY Ruelas Patient Instructions: The patient had an opportunity to ask questions regarding the treatment plan. All questions were answered. Physical exam, labs, and imaging were discussed and reviewed in detail. As well as risks, benefits, and discussion of treatment choices. No major barriers to understanding were identified. The patient expressed understanding and agreement with the above treatment plan. The patient was made aware they should contact our office by phone for worsening of their current condition, the appearance of new symptoms, or with any questions or concerns. Compliance is encouraged with any medications and follow up testing that is ordered. It is a privilege to be allowed the opportunity to participate in? your urological care.? Again, if you have any questions or concerns If you have any questions or concerns please do not hesitate to contact me. The office is [phone]. This note is constructed using voice recognition software. While every effort has been made to ensure accuracy workers compensation paralegal errors may have been included. Yours sincerely, WENDY Ruelas Coding Level of Care Code Est Pt Level 4 (08903) Diagnoses Nephrolithiasis N20.0 CPT Codes Cystoscopy - CPT: 16344-[id number] with stent removal ([id number])
== END 2023-02-02 14:14 | disposition home or self-care (01) ==
PROVIDERS: PCP Physician Assistant; Visit Provider Urology
DX: N20.0 Calculus of kidney (principal)
CPT/HCPCS: 52310; 99213

== ENCOUNTER → 2023-02-02 12:36 | Outpatient (BNVA) | payer BC, SELFPAY | PROVIDERS: PCP Physician Assistant; Visit Provider Urology | DX: Z48.816 Encounter for surgical aftercare following surgery on the genitourinary system (principal) | CPT/HCPCS: 52310; 81003 ==

== ENCOUNTER 2023-02-03 18:25 | Inpatient (IN) | payer BC, SELFPAY ==
[2023-02-03 19:14] VITALS: BP 129/90; PULSE 82; RESP 18; TEMP 36.4; O2SAT 98; BMI 44.3
--- NOTE | 2023-02-03 19:16 | ED_ITS ---
HPI - General Adult General Chief complaint: Urogenital-Male Stated complaint: unable to urinate Time Seen by Provider: 02/03/23 21:29 Source: patient Mode of arrival: ambulatory Limitations: no limitations History of Present Illness HPI narrative: Patient comes to the emergency room complaining of skyler hematuria and difficulty passing urine. The last time that he was able to urinate normally was approximately 8 hours ago. Patient states that he has been trickling blood. Patient states that yesterday, he went to the urology office for a cystoscopy left-sided ureteral stent removal. Of note, patient previously underwent cystoscopy, left retrograde, left dilatation of ureteric orifice under fluoroscopy, left ureteroscopy, laser lithotripsy, stone basketing, left stent placement with Dr. Serrano on 01/23/2023 Related Data Previous Rx's Medication Instructions Recorded blood sugar diagnostic (FreeStyle #100 ea 07/22/21 Lite Strips) lancets 30 gauge (BD Ultra-Fine II #100 ea 07/22/21 Lancets) blood-glucose meter (FreeStyle #1 ea 09/02/21 Lite Meter kit) sildenafil 100 mg tablet 100 mg PO DAILY PRN sexual 03/02/22 activity 7 days #7 tabs lisinopril 10 mg tablet 10 mg PO DAILY 90 days #90 tabs 09/08/22 hydroxyzine HCl 25 mg tablet 25 mg PO ONCE PRN panic attacks 10 10/13/22 days #10 tabs semaglutide 0.25 mg or 0.5 mg (2 0.25 mg (0.368 mL) subcut QWEEK 4 12/26/22 mg/3 mL) subcutaneous pen injector weeks #3 mL (Ozempic) atorvastatin 10 mg tablet 10 mg PO BEDTIME #90 tabs 12/27/22 metformin 500 mg tablet 500 mg PO BID #180 tabs 12/27/22 semaglutide 1 mg/dose (2 mg/1.5 1 mg (0.75 mL) subcut QWEEK 4 01/03/23 mL) subcutaneous pen injector weeks #3 mL ondansetron 4 mg disintegrating 4 mg PO Q8H PRN nausea and 01/05/23 tablet vomiting #20 tabs naproxen 500 mg tablet 500 mg PO BID PRN pain 7 days #14 01/23/23 tabs tamsulosin 0.4 mg capsule 0.4 mg PO BEDTIME 14 days #14 caps 01/23/23 pyridoxine (vitamin B6) 100 mg 100 mg PO DAILY 90 days #90 tabs 02/02/23 tablet Allergies Allergy/AdvReac Type Severity Reaction Status Date / Time Penicillins [PENICILLINS] Allergy Intermediate UNKNOWN Verified 02/03/23 19:14 Review of Systems 2 Review of Systems: Constitutional : No Weight loss, No Fever, No Chills, No Night Sweats, No Fatigue, No Malaise ENT/Mouth : No Hearing loss, No Ear Pain, No Nasal Congestion, No Sinus Pain, No Hoarseness, No sore throat, No Rhinorrhea, No Swallowing Difficulty Eyes: No Eye Pain, No Swelling, No Redness, No Foreign Body, No Discharge, No Vision Changes Cardiovascular : No Chest Pain, No SOB, No Dyspnea on Exertion, No Orthopnea, No Edema, No Palpitations Respiratory : No Cough, No Sputum, No Wheezing, No Smoke Exposure, No Dyspnea Gastrointestinal : No Nausea, No Vomiting, No Diarrhea, No Constipation, No abdominal Pain, No Hematochezia, No Melena Genitourinary : No dysuria, No Urinary Frequency, complaining of hematuria and unable to pass significant amounts of urine. No Urinary Incontinence, No Urgency, No Flank Pain, No Hesitancy Musculoskeletal : No joint pain, No Myalgias, No Joint Swelling Skin : No Skin Lesions, No rash Neuro : No Weakness, No Numbness, No Paresthesias, No Loss of Consciousness, No Dizziness, No Headache Psych : No Anxiety/Panic, No Depression, No SI/HI/AH/VH, No Social Issues, Heme/Lymph: No Bruising, No Bleeding,No Lymphadenopathy Endocrine : No Polyuria, No Polydipsia, No Temperature Intolerance [facility] Past Medical History Medical History Diabetes mellitus Pure hypercholesterolemia Benign essential hypertension Morbid obesity with BMI of 50.0-59.9, adult Surgical History Hx of colonoscopy No pertinent past surgical history Family History Family History Mother Diabetes CHF (congestive heart failure) High blood pressure Father No problems noted. Other Substance abuse Social History Social History Housing: House Alcohol intake: current Alcohol intake frequency: does not drink Alcohol type: beer and hard liquor Patient Tobacco Use Status: Former Tobacco user Quit Date: 1989 Smoked in Last 30 Days: No e-Cigarette/Vaping Use: Never Used Second Hand Smoke Exposure: Yes Use of substances other than those prescribed or required for medical reasons: No Advance Directives: No Advance Directives Information Provided: No service: No Current occupational status: employed Current occupation: [employer] Cognitive needs: No Hearing needs: No Vision needs: Yes Physical Exam ED Vital Signs: Vital Signs - 24 hr 02/03/23 19:14 02/04/23 01:56 02/04/23 04:26 Temperature 97.5 F 97.9 F 97.9 F Pulse Rate 82 70 73 Respiratory Rate 18 14 14 Blood Pressure 129/90 H 112/74 117/79 Pulse Oximetry 98 97 96 Oxygen Delivery Method Room Air Room Air Room Air BMI result Body Mass Index 44.3 Const Other: Appearance: Alert. Oriented X3. Seems uncomfortable Eyes: Pupils equal, round and reactive to light. ENT: Pharynx normal. Neck: Normal inspection. Neck supple. No lymph nodes noted. No crepitus CVS: Normal heart rate and rhythm. Pulses normal. Normal S1 and S2 Respiratory: No respiratory distress. Breath sounds normal. No Wheezing. No rales Abdomen: Soft and nontender. No rigidity. No distention. Skin: Skin warm and dry. Normal skin color. Normal skin turgor. Extremities: No lower extremity edema. No Lacerations. No Rash Neuro: Oriented X 3. No motor deficit. No sensory deficit. Moving all extremities. No slurred speech. CN 2 through 12 grossly intact Psych: calm, cooperative, normal affect Course Course Course Narrative: RME- 52-year-old male presents for evaluation of urinary retention, hematuria. Patient had a left renal stent removed yesterday by Dr. Jonathon richter. Is able to urinate after pursued her but today woke up from sleeping on was only able to ?dribble a little bit of blood but cannot pee. ? Plan for bladder scan, UA Medications Administered Discontinued Medications Generic Name Dose Route Start Last Admin Trade Name Freq PRN Reason Stop Dose Admin Lidocaine HCl 20 ml 02/03/23 22:41 02/04/23 02:02 Lidocaine Hcl 2 % Urojet 10 Ml Jel.Pf.[place] TOPICAL 02/03/23 22:42 20 ml ONCE ONE Administration Medical Decision Making Medical Decision Making [facility] Narrative: -discussed with the patient that we will insert a 3 way catheter, manually rinse the bladder, if the hematuria does not resolve or does not improve satisfactorily, patient will need CBI -patient has had 2 packs of CBI, once we stop the fluid, the patient started having skyler hematuria again. I discussed the patient with Dr. Cesar, recommendations: 2 more CBI bags, total of 4 CBI bags and reassess -patient has a normal white blood cell count, no fever or chills, normal blood pressure, UTI or sepsis not suspected. We have not been able to send a urinalysis to the lab since we have been continuously irrigating the patient's bladder. -after 3 L of vigorous manual bladder rinse and 4 bags of CVI, patient continues having hematuria. Patient's hemoglobin is below his baseline, which patient being admitted is between 14.7 and 15.5, today, hemoglobin 12.9. Patient is not on blood thinners -I discussed the patient with Dr. Murray, patient being admitted. -patient is stable, blood pressure 117/79, pulse 73, no fever, normal oxygen saturation 98% on room air Differential Diagnosis Differential Diagnoses: The differential diagnosis associated with the presentation includes (Hematuria, UTI) Admission/Observation Consideration of admission/observation: Escalation of care including admission/observation considered Consult Healthcare Provider Management of the patient was discussed with: Global Director [employer] Lab Data [facility] Lab Attestation statement: I reviewed the patient's lab results. 02/04/23 03:32 02/04/23 03:32 Labs: Lab Results 02/04/23 Range/Units 03:32 WBC 8.4 (4.8-10.8) X10*3/uL RBC 4.50 L (4.60-5.80) X10*6/uL Hgb 12.9 L (14.0-18.0) g/dl Hct 38.7 L (42.0-52.0) % MCV 86.0 (80.0-98.0) fL MCH 28.7 (27.0-33.0) pg MCHC 33.3 (31.0-36.0) g/dl RDW 13.4 (11.0-16.0) % Plt Count 207 (160-400) X10*3/uL MPV 9.4 (9.4-12.4) fL Immature Gran % (Auto) 0.4 (0.0-0.4) % Neut % (Auto) 70.6 (45-73) % Lymph % (Auto) 20.1 (20-40) % [place] % (Auto) 7.0 (2-11) % Eos % (Auto) 1.8 (0-4) % Baso % (Auto) 0.1 (0-2) % Lymph # (Auto) 1.7 (1.2-4.9) X10*3/uL [place] # (Auto) 0.6 (0.1-1.2) X10*3/uL Eos # (Auto) 0.2 (0.0-0.4) X10*3/uL Baso # (Auto) 0.0 (0.0-0.2) X10*3/uL Abs Immat Gran (auto) 0.03 (0.00-0.03) X10*3/uL Absolute Neuts (auto) 5.9 (2.0-8.3) x10*3/uL Absolute Nucleated RBC 0.000 (0.0-0.012) X10*3/uL Nucleated RBC % (auto) 0.0 (0.0-0.2) /100WBC PT 11.8 (11.1-13.3) SEC INR 1.0 (0.9-1.1) APTT 32.0 (26.0-36.4) SEC Sodium 143 (135-145) mmol/L Potassium 4.5 (3.3-5.1) mmol/L Chloride 107 (96-108) mmol/L Carbon Dioxide 27 (22-29) mmol/L Anion Gap 14 (12-20) BUN 18 H (9-16) mg/dL Creatinine 0.86 (0.5-1.4) mg/dL Estim Creat Clear Calc 144.5 Estimated GFR > 60 Random Glucose 126 H (60-115) mg/dL Calcium 9.4 (8.4-10.2) mg/dL Total Bilirubin 0.6 (0.0-1.0) mg/dL Direct Bilirubin 0.2 (0.0-0.5) mg/dL AST 17 (5-37) U/L ALT 17 (0-40) U/L Alkaline Phosphatase 78 (39-117) U/L Total Protein 6.8 (6.5-8.0) g/dL Albumin 3.8 (3.5-5.0) g/dL Critical Care Time Critical Care Time Critical Care Time: Yes Total Critical Care Time: 75 Attestation: I have personally provided critical care time. Time includes review of lab data, radiology results, discussion with consultants, and monitoring for potential decompensation. Intervention performed as documented. Discharge Plan Discharge Clinical Impression: Hematuria Patient Disposition: Admitted As Inpatient Prescriptions: No Action (DME) FreeStyle Lite Strips Strip See Rx Instructions .Route Qty: 100 0RF Rx Instructions: Test Daily (DME) lancets [BD Ultra-Fine II Lancets] 30 gauge misc See Rx Instructions .Route Qty: 100 0RF Rx Instructions: Test Daily (DME) blood-glucose meter [FreeStyle Lite Meter] Kit See Rx Instructions .Route Qty: 1 0RF Rx Instructions: Test Daily lisinopril 10 mg tablet 10 mg PO DAILY 90 Days Qty: 90 1RF Ozempic 0.25 mg or 0.5 mg (2 mg/3 mL) pen injector 0.25 mg subcut QWEEK 28 Days Qty: 3 2RF Rx Instructions: for 4 weeks atorvastatin 10 mg tablet 10 mg PO BEDTIME Qty: 90 0RF metformin 500 mg tablet 500 mg PO BID Qty: 180 0RF semaglutide 1 mg/dose (2 mg/1.5 mL) pen injector 1 mg subcut QWEEK 28 Days Qty: 3 3RF ondansetron 4 mg tablet,disintegrating 4 mg PO Q8H PRN (Reason: nausea and vomiting) Qty: 20 0RF tamsulosin 0.4 mg capsule 0.4 mg PO BEDTIME 14 Days Qty: 14 0RF naproxen 500 mg tablet 500 mg PO BID PRN (Reason: pain) 7 Days Qty: 14 0RF sildenafil 100 mg tablet 100 mg PO DAILY PRN (Reason: sexual activity) 7 Days Qty: 7 0RF hydroxyzine HCl 25 mg tablet 25 mg PO ONCE PRN (Reason: panic attacks) 10 Days Qty: 10 0RF pyridoxine (vitamin B6) 100 mg tablet 100 mg PO DAILY 90 Days Qty: 90 1RF
--- NOTE | 2023-02-03 21:35 | PC.NURSE ---
bladder scan was 313cc urine after the patient tried to void. only voided very small amount of blood. urine trickles out per pt
[2023-02-04] VITALS (7 sets, daily range): BP systolic 112–139; BP diastolic 67–80; PULSE 70–81; RESP 12–20; TEMP 36.6–36.7; O2SAT 95–98; BMI 47.6
--- NOTE | 2023-02-04 00:02 | PC.NURSE ---
Attempted to insert 16F catheter with no success as there is resistance. Dr. Evangelista notified. Dr. Evangelista inserted 18F three way catheter and irrigated the bladder. Pt tolerated well with some discomfort. CBI started as ordered. Pt tolerating well.
--- NOTE | 2023-02-04 00:31 | PC.NURSE ---
First bag of CBI completed with no complications. Urine appearing clearer with a tint of pink. Second bag of CBI hung as ordered per Dr Evangelista. Pt tolerating well.
--- NOTE | 2023-02-04 01:26 | PC.NURSE ---
Second bag of CBI completed. Urine is red. Dr Evangelista notified.
[2023-02-04] MEDS: Lidocaine HCl 2 % Urojet 10 ML JEL.PF.APP 20 ML TOPICAL (02:02)
--- NOTE | 2023-02-04 02:04 | PC.NURSE ---
Third bad of CBI administered per Dr. Evangelista. Pt tolerating well. Red colored urine in collection bag.
--- NOTE | 2023-02-04 03:08 | PC.NURSE ---
Third bag of CBI completed. Fourth bag started as ordered per Dr. Evangelista. Pt tolerating well. Urine continues to be red colored.
[2023-02-04 03:36] LABS: MANUAL DIFF FLAG NO
[2023-02-04 03:37] LABS: Basophils Percent Auto 0.1 % (0-2); Eosinophils Absolute Auto 0.2 X10*3/uL (0.0-0.4); Eosinophils Percent Auto 1.8 % (0-4); Hematocrit 38.7 % (42.0-52.0); Hemoglobin 12.9 g/dl (14.0-18.0); Imm Gran Abs Auto 0.03 X10*3/uL (0.00-0.03); Imm Gran Pct Auto 0.4 % (0.0-0.4); Lymphocytes Absolute Auto 1.7 X10*3/uL (1.2-4.9); Lymphocytes Percent Auto 20.1 % (20-40); Mean Corpuscular HGB Conc 33.3 g/dl (31.0-36.0); Mean Corpuscular Hemoglobin 28.7 pg (27.0-33.0); Mean Platelet Volume 9.4 fL (9.4-12.4); Monocytes Absolute Auto 0.6 X10*3/uL (0.1-1.2); Neutrophils Absolute Auto 5.9 x10*3/uL (2.0-8.3); Neutrophils Percent Auto 70.6 % (45-73); Platelet Count 207 X10*3/uL (160-400); Red Cell Distribution Width 13.4 % (11.0-16.0); White Blood Count 8.4 X10*3/uL (4.8-10.8)
[2023-02-04 03:43] LABS: Prothrombin Time 11.8 SEC (11.1-13.3)
[2023-02-04 03:51] LABS: Alanine Aminotransferase 17 U/L (0-40); Albumin Level 3.8 g/dL (3.5-5.0); Alkaline Phosphatase 78 U/L (39-117); Anion Gap 14 (12-20); Aspartate Amino Transferase 17 U/L (5-37); Bilirubin Direct 0.2 mg/dL (0.0-0.5); Bilirubin Total 0.6 mg/dL (0.0-1.0); Blood Urea Nitrogen 18 mg/dL (9-16); Calcium 9.4 mg/dL (8.4-10.2); Carbon Dioxide 27 mmol/L (22-29); Chloride 107 mmol/L (96-108); Creatinine Clr Calc Pharmacy 144.5; Estimated Glomerular Filt Rate > 60; Glucose Random 126 mg/dL (60-115); Potassium 4.5 mmol/L (3.3-5.1); Sodium 143 mmol/L (135-145); Total Protein 6.8 g/dL (6.5-8.0)
--- NOTE | 2023-02-04 08:30 | PHA.MEDREC ---
Pharmacy Consult ? Medication Reconciliation Pharmacy has completed the medication reconciliation. spoke with patient and family member. They confirmed the ozempic dose and mentioned that he takes probiotics.
[2023-02-04 10:09] LABS: Glucose, Whole Blood 87 mg/dL (60-115)
[2023-02-04] MEDS: Sodium Chloride 0.45 % 1,000 ML 100 ML IVCONT ×2 (10:12→20:06)
[2023-02-04 11:07] LABS: Appearance Urine Turbid; Color Urine RED; Glucose Urine UA 100 mg/dL (Negative); Leukocyte Esterase Urine Moderate (2+) (Negative); Nitrite Urine Positive (Negative); UMIC TRIGGER UACC YES; Urine Blood Large (3+) (Negative); Urine Ketones 15 mg/dL (Negative); Urine Protein 100 (2+) mg/dL (Neg-Trace)
[2023-02-04 11:59] LABS: Bacteria Urine Trace (None Seen); Hyaline Casts Urine 0-2 /LPF (0-2); Squamous Epithelial Cell Urine 0-2 /HPF (0-2); UACC Culture Trigger YES; WBC Urine >50 /HPF (0-5)
[2023-02-04 12:00] LABS: RBC Urine >20 /HPF (0-2)
[2023-02-04] MEDS: metFORMIN HCl 500 MG TABLET PO (20:23)
[2023-02-04] MEDS: Atorvastatin Calcium 10 MG TABLET PO (20:23)
[2023-02-04] MEDS: Docusate Sodium 100 MG CAPSULE PO (20:23)
[2023-02-04] MEDS: Tamsulosin HCL 0.4 MG CAPSULE PO (20:23)
[2023-02-05] MEDS: Sodium Chloride 0.45 % 1,000 ML 100 ML IVCONT ×2 (06:19→16:34)
[2023-02-05 07:53] VITALS: BP 117/62; PULSE 84; RESP 18; TEMP 36.6; O2SAT 96
[2023-02-05] MEDS: metFORMIN HCl 500 MG TABLET PO ×2 (07:57→19:29)
[2023-02-05] MEDS: Cholecalciferol (Vitamin D3) 25 MCG TABLET 50 MCG PO (07:57)
[2023-02-05] MEDS: lisinopriL 10 MG TABLET PO (07:57)
[2023-02-05 08:00] LABS: Anion Gap 10 (12-20); Blood Urea Nitrogen 16 mg/dL (9-16); Calcium 9.5 mg/dL (8.4-10.2); Carbon Dioxide 28 mmol/L (22-29); Chloride 106 mmol/L (96-108); Creatinine Clr Calc Pharmacy 152.3; Estimated Glomerular Filt Rate > 60; Glucose Random 95 mg/dL (60-115); Potassium 4.3 mmol/L (3.3-5.1); Sodium 140 mmol/L (135-145)
[2023-02-05] MEDS: Docusate Sodium 100 MG CAPSULE PO (10:49)
--- NOTE | 2023-02-05 14:49 | MHC.CM.PN ---
PT REPORTS HE LIVES AT HOME WITH HIS AND IS INDEPENDENT WITH CARE PT USES NO DME , HAS NO SERVICES, AND WORKS FT HE DOES NOT HAVE A HCP, BUT MAY COMPLETE ONE WHILE HERE PCP: PATTIE GORE DCP: HOME NO SERVICES VIA PRIVATE TRANSPORT
[2023-02-05 15:14] VITALS: BP 121/72; PULSE 114; RESP 18; TEMP 36.6; O2SAT 94
[2023-02-05 19:04] VITALS: BP 127/67; PULSE 96; RESP 18; TEMP 36.6; O2SAT 95
[2023-02-05] MEDS: Atorvastatin Calcium 10 MG TABLET PO (19:29)
[2023-02-05] MEDS: Tamsulosin HCL 0.4 MG CAPSULE PO (19:29)
[2023-02-06] MEDS: Sodium Chloride 0.45 % 1,000 ML 100 ML IVCONT (00:28)
[2023-02-06 03:22] VITALS: BP 131/70; PULSE 88; RESP 16; TEMP 36.6; O2SAT 94
[2023-02-06 07:39] VITALS: BP 111/67; PULSE 85; RESP 20; TEMP 36.5; O2SAT 94
[2023-02-06] MEDS: metFORMIN HCl 500 MG TABLET PO (08:50)
[2023-02-06] MEDS: lisinopriL 10 MG TABLET PO (08:50)
[2023-02-06] MEDS: Cholecalciferol (Vitamin D3) 25 MCG TABLET 50 MCG PO (08:50)
--- NOTE | 2023-02-06 11:53 | PM.HPGS ---
History of Present Illness History of Present Illness Date of Service: 02/04/23 Chief complaint: Hematuria Narrative: Yo Rendon is a 52 year old male who has a history of kidney stones. He had ureteroscopy laser lithotripsy and stent placed for obstructing ureteral stone on 01/23/2023. FU as outpatient on 02/02/23, the stent was removed. The patient states he was voiding okay until today was dribbling bloody urine. Denies flank pain. Avelar and CBI started in the ED. Review of Systems Review of Systems: Yes all other systems are reviewed and are negative Constitutional: Constitutional: Reports no additional constitutional complaints Eyes: Eyes: Reports no additional eye complaints ENT: Reports system reviewed and no additional complaints, except as documented Cardiovascular: Cardiovascular: Denies dyspnea Respiratory: Respiratory: Denies cough and Denies dyspnea Gastrointestinal: Gastrointestinal: Reports no additional gastrointestinal complaints Musculoskeletal: Musculoskeletal: Reports no additional musculoskeletal complaints Integumentary/Breasts: Skin/Breast: Denies rash and Denies unusual bruising Neurologic: Reports system reviewed and no additional complaints, except as documented Psychiatric: Psychiatric: Reports no additional psychiatric complaints Endocrine: Endocrine: Reports no additional endocrine complaints Hematologic/Lymphatic: Hematologic/Lymphatic: Reports no additional hematologic/lymphatic complaints Allergic/Immunologic: Allergic/Immunologic: Reports no additional allergic/immunologic complaints [facility] Past Medical History Medical History Diabetes mellitus Pure hypercholesterolemia Benign essential hypertension Morbid obesity with BMI of 50.0-59.9, adult Family History Family History Mother Diabetes CHF (congestive heart failure) High blood pressure Father No problems noted. Other Substance abuse Surgical History Surgical History Hx of colonoscopy No pertinent past surgical history Social History Social History Household Members: Family Housing: House Do you presently have visiting nurse or other home services: No Alcohol intake: current Alcohol intake frequency: does not drink Alcohol type: beer and hard liquor Patient Tobacco Use Status: Former Tobacco user Quit Date: 1989 Smoked in Last 30 Days: No e-Cigarette/Vaping Use: Never Used Second Hand Smoke Exposure: Yes Use of substances other than those prescribed or required for medical reasons: No Currently Displaying Signs/Symptoms of Drug Intoxication Withdrawal: No Do you feel safe in your current relationship?: Yes Advance Directives: No Advance Directives Information Provided: No Do you have thoughts of harming others: None Do you have a plan to hurt others: No Plan Recently lost weight without trying: No Nutrition Risks: No Nutritional Risk service: No Current occupational status: employed Current occupation: [employer] Cognitive needs: No Hearing needs: No Vision needs: Yes Meds Allergies Allergy/AdvReac Type Severity Reaction Status Date / Time Penicillins [PENICILLINS] Allergy Intermediate UNKNOWN Verified 02/03/23 19:14 Active Medications: Current Medications Acetaminophen (Acetaminophen 325 Mg Tablet) 650 mg PO Q6H PRN PRN Reason: Pain, Mild (Pain Scale 1-3) Atorvastatin Calcium (Atorvastatin Calcium 10 Mg Tablet) 10 mg PO BEDTIME [facility] Last Admin: 02/05/23 19:29 Dose: 10 mg Benzonatate (Benzonatate 100 Mg Capsule) 100 mg PO TID PRN PRN Reason: Cough Docusate Sodium (Docusate Sodium 100 Mg Capsule) 100 mg PO BID [facility] Last Admin: 02/06/23 08:51 Dose: Not Given Lisinopril (Lisinopril 10 Mg Tablet) 10 mg PO DAILY [facility]; Protocol Last Admin: 02/06/23 08:50 Dose: 10 mg Magnesium Hydroxide (Milk Of Magnesia 30 Ml Oral.Susp) 30 ml PO DAILY PRN PRN Reason: Constipation Metformin HCl (Metformin Hcl 500 Mg Tablet) 500 mg PO BID [facility] Last Admin: 02/06/23 08:50 Dose: 500 mg Non-Formulary Medication (Semaglutide [Ozempic]) 1 mg SUBCUT HENRIQUEZ [facility] Oxycodone HCl (Oxycodone Hcl Immed Release 5 Mg Tablet) 5 mg PO Q6H PRN PRN Reason: Pain, Severe (Pain Scale 7-10) Senna (Sennosides 8.6 Mg Tablet) 17.2 mg PO BEDTIME PRN PRN Reason: Constipation Sodium Chloride (0.9 % Sodium Chloride Flush 3 Ml Syringe) 3 ml IVFLUSH QSHIFT [facility] Last Admin: 02/06/23 07:56 Dose: Not Given Tamsulosin HCl (Tamsulosin Hcl 0.4 Mg Capsule) 0.4 mg PO BEDTIME [facility] Last Admin: 02/05/23 19:29 Dose: 0.4 mg Vitamin D (Cholecalciferol (Vitamin D3) 25 Mcg Tablet) 50 mcg PO DAILY [facility] Last Admin: 02/06/23 08:50 Dose: 50 mcg Zolpidem Tartrate (Zolpidem Tartrate 5 Mg Tablet) 5 mg PO BEDTIME PRN PRN Reason: Insomnia Home Medications Medication Instructions Recorded Confirmed Last Taken Type cholecalciferol (vitamin D3) 50 50 mcg PO DAILY 02/04/23 02/04/23 Unknown History mcg (2,000 unit) tablet (Vitamin D3) magnesium oxide 500 mg tablet 500 mg PO DAILY 02/04/23 02/04/23 Unknown History semaglutide 1 mg/dose (4 mg/3 mL) 1 mg subcut HENRIQUEZ 02/04/23 02/04/23 01/29/23 History subcutaneous pen injector (Ozempic) zinc 50 mg tablet 50 mg PO DAILY 02/04/23 02/04/23 Unknown History Physical Exam Vital Signs: Vital Signs: Vital Signs - 24 hr 02/03/2319:14 02/04/2301:56 02/05/2304:26 Temperature 97.5 F 97.9 F 97.9 F Pulse Rate 82 70 73 Respiratory Rate 18 14 14 Blood Pressure 129/90 H 112/74 117/79 Pulse Oximetry 98 97 96 Oxygen Delivery Me thod Room Air Room Air Room Air BMI result Body Mass Index 44.3 Const: General: healthy appearing, no acute distress and well developed Orientation/consciousness: patient oriented x3 HEENT: Head: Yes normocephalic and Yes atraumatic Eyes: Conjunctivae: conjunctivae normal Neck: Neck: Yes normal visual inspection Chest: Chest palpation & inspection: normal inspection of the chest Resp: Effort & Inspection: normal respiratory effort Cardio: Rate: regular rate GI: Inspection: Yes normal to inspection Palpation (GI): Soft to palpation : Other: avelar in place CBI running, urine blood tinged Penis: normal penis Scrotum: scrotum normal Skin: General skin exam: no rashes or lesions noted Neuro: General: patient oriented x3 Extrem: General: No pedal edema Psych: Appearance: grossly normal Affect: normal affect Results Results Labs: Urine 02/04/23 Range/Units 10:52 Urine Color RED Urine Appearance Turbid Urine pH 7.0 (5.0-9.0) Ur Specific [place] 1.010 (1.005-1.025) Urine Protein 100 (2+) H (Neg-Trace) mg/dL Urine Glucose (UA) 100 H (Negative) mg/dL Assessment and Plan (1) Hematuria: Status: Acute (2) Nephrolithiasis: Status: Acute Plan Continue CBI urine c/s Quality Stroke Does the patient have a stroke diagnosis?: No VTE Prior VTE?: No VTE Risk Level:: Medical - low VTE Device Contraindication: N/A - Device Ordered VTE Drug Contraindication: Treatment Not Indicated Procedures Date of Service Date of Service: 02/06/23
--- NOTE | 2023-02-06 13:18 | MHC.CM.PN ---
EMR REVIEWED AND PER MD ROUNDS, PT NOT MEDICALLY CLEARED FOR DC (HEMATURIA ,ON CBI) CM WILL CONTINUE TO FOLLOW FOR ANY CHANGE IN DC NEEDS/PLAN
[2023-02-06 15:16] VITALS: BP 119/64; PULSE 99; RESP 18; TEMP 36.9; O2SAT 94
[2023-02-06 16:13] LABS: Glucose, Whole Blood 115 mg/dL (60-115)
--- NOTE | 2023-02-06 17:30 | P.PNUR_ITS ---
Subjective Subjective Date of Service: 02/06/23 Interval history: seen today CBI held urine relatively clear on review 330 at time of insertion june discharge with follow-up Monday for catheterization trial Physical Exam 2 Vital Signs: Vital Signs: Last Vital Signs Temp 98.4 F 02/06/23 15:16 Pulse 99 02/06/23 15:16 Resp 18 02/06/23 15:16 BP 119/64 02/06/23 15:16 Pulse Ox 94 02/06/23 15:16 O2 Del Method Room Air 02/06/23 15:16 BMI result Body Mass Index 47.6 Const: General: cooperative, healthy appearing, comfortable and no acute distress Orientation/consciousness: patient oriented x3 HEENT: Face and sinus: Yes normal facial exam Mouth: moist mucous membranes Neck: Neck: Yes normal visual inspection, Yes full ROM and Yes trachea midline Chest: Chest palpation & inspection: normal inspection of the chest Resp: Effort & Inspection: normal respiratory effort, able to speak in complete sentences and no respiratory distress GI: Inspection: Yes normal to inspection Back/Spine/Pelvis: Cervical Spine: normal cervical lordosis Thoracic/Lumbar Spine: thoracic and lumbar spine normal to inspection Skin: General skin exam: no rashes or lesions noted Neuro: General: patient oriented x3, tone normal and moves all extremities Extrem: General: Yes normal to inspection and Yes capillary refill normal Urology Results Labs 02/04/23 03:32 02/05/23 06:36 Labs: Laboratory Results - last 24 hr 02/06/23 16:04 POC Glucose 115 Progress Note: A&P Assessment and plan (1) Hematuria: Status: Acute (2) Urinary retention with incomplete bladder emptying: Status: Acute Plan follow-up Monday catheter removal Time Spent With Patient Time: Total time managing care of this patient today ____ minutes. Progress Note: Quality Stroke Does the patient have a stroke diagnosis?: No
--- NOTE | 2023-04-10 17:00 | PM.DS ---
DS: Providers Provider Date of Service: 02/04/23 Date of admission: 02/04/23 09:13 Date of discharge: 02/06/23 Primary care physician: Antonio Tuttle PA-C Admitting clinician: Kodi Murray Attending physician on admission: Kodi Murray Attending physician on discharge: Kodi Murray Discharging clinician: Kevin Serrano DS: Diagnosis Discharge Diagnosis (1) Hematuria: Start date: 02/04/23 Status: Resolved (2) Urinary retention with incomplete bladder emptying: Start date: 02/04/23 Status: Acute DS: Summary Hospital Course Hospital Course: Yo Rendon is a 52 year old male who has a history of kidney stones. He had ureteroscopy laser lithotripsy and stent placed for obstructing ureteral stone on 01/23/2023. FU as outpatient on 02/02/23, the stent was removed. The patient states he was voiding okay until 02/04/23 when he present to ED with difficulty voiding and bloody urine. Denies flank pain. Avelar and CBI was started in the ED. Status at Discharge Cognitive/behavioral status at discharge: Within normal limits Functional status at discharge: independent ambulation Overall status at discharge: other (Discharged with avelar) Time Attestation Discharge coordination time: Less than 30 minutes Quality: Safe Use of Opioids Does Pt have an Active Cancer Diagnosis on the Problem List?: No Quality: Stroke Does the patient have a stroke diagnosis?: No Physical Exam Vital Signs: Vital Signs: Last Vital Signs Temp 98.4 F 02/06/23 15:16 Pulse 99 02/06/23 15:16 Resp 18 02/06/23 15:16 BP 119/64 02/06/23 15:16 Pulse Ox 94 02/06/23 15:16 O2 Del Method Room Air 02/06/23 15:16 BMI result Body Mass Index 47.6 Discharge Plan Discharge Anticipated Discharge Date/Time: 02/06/23 17:29 Patient Disposition: Home, Self-Care Discharge Diagnosis: urinary retention with hematuria Referrals: Kevin Serrano MD [Physician] - 3-5 Days (catehetr out monday) Physician,Jaron J [Physician] - 1 Week Discharge Medications: New tamsulosin 0.4 mg capsule 0.4 mg PO BEDTIME 30 Days Qty: 30 1RF Continued (DME) FreeStyle Lite Strips Strip See Rx Instructions .Route Qty: 100 0RF Rx Instructions: Test Daily (DME) lancets [BD Ultra-Fine II Lancets] 30 gauge misc See Rx Instructions .Route Qty: 100 0RF Rx Instructions: Test Daily (DME) blood-glucose meter [FreeStyle Lite Meter] Kit See Rx Instructions .Route Qty: 1 0RF Rx Instructions: Test Daily magnesium oxide 500 mg Tablet 500 mg PO DAILY zinc 50 mg Tablet 50 mg PO DAILY cholecalciferol (vitamin D3) [Vitamin D3] 50 mcg (2,000 unit) Tablet 50 mcg PO DAILY Ozempic 1 mg/dose (4 mg/3 mL) Pen Injector 1 mg SUBCUT HENRIQUEZ tamsulosin 0.4 mg capsule 0.4 mg PO BEDTIME 14 Days Qty: 14 0RF pyridoxine (vitamin B6) 100 mg tablet 100 mg PO DAILY 90 Days Qty: 90 1RF No Action lisinopril 10 mg tablet 10 mg PO DAILY 90 Days Qty: 90 1RF metformin 500 mg tablet 500 mg PO BID Qty: 180 0RF atorvastatin 10 mg tablet 10 mg PO BEDTIME Qty: 90 0RF prednisone 20 mg tablet 20 mg PO DAILY 7 Days Qty: 7 0RF Discharge Orders: Discharge Order (Routine); Ordered 02/06/23 Ordered By: Kevin Serrano Diet: Advance to usual diet Activity on Discharge: As tolerated Stand Alone Forms: Patient Portal Discharge page Care Plan Goals: retention Health Concerns: retention Plan of Treatment: retention Assessment: retention Discharge Date/Time: 02/06/23 17:51
== END 2023-02-06 17:51 | disposition home or self-care (01) | DRG 813 ==
LOC: HO.ED 02-04 04:49 → HO.EDOVER 02-04 09:32 → HO.S3 02-04 10:51
PROVIDERS: Admitting Provider Urology; Emergency Provider Emergency Medicine; PCP Physician Assistant; Visit Provider Urology
DX: N99.820 Postprocedural hemorrhage of a genitourinary system organ or structure following a genitourinary system procedure (principal); Z68.42 Body mass index [BMI] 45.0-49.9, adult; E66.01 Morbid (severe) obesity due to excess calories; E11.9 Type 2 diabetes mellitus without complications; R31.0 Gross hematuria; R33.9 Retention of urine, unspecified; Y83.8 Other surgical procedures as the cause of abnormal reaction of the patient, or of later complication, without mention of misadventure at the time of the procedure; Z87.891 Personal history of nicotine dependence; Z87.442 Personal history of urinary calculi; Z79.52 Long term (current) use of systemic steroids; Z79.85 Long-term (current) use of injectable non-insulin antidiabetic drugs; Z79.899 Other long term (current) drug therapy
CPT/HCPCS: 36415; 80048; 80076; 81001; 81003; 82947; 85025; 85610; 85730; 87086; 99221; 99285

== ENCOUNTER → 2023-02-04 09:13 | Outpatient (BNV) | payer BC, SELFPAY | PROVIDERS: Admitting Provider Urology; Emergency Provider Emergency Medicine; Visit Provider Urology | DX: R31.9 Hematuria, unspecified (principal); N20.0 Calculus of kidney; R33.9 Retention of urine, unspecified | CPT/HCPCS: 99222; 99499 ==

== ENCOUNTER 2023-02-07 14:40 | Outpatient (AMB) | payer BC, SELFPAY ==
--- NOTE | 2023-02-07 14:47 | MHC.PC.OV ---
Vital Signs 02/07/23 14:58 Height 5 ft 11 in Weight 317 lb 8 oz BMI 44.3 BP 108/74 Blood Pressure Location Lt brachial Position Sitting Pulse 68 Pulse Source Palpation Intake Visit Reasons: [facility] 02/07 Hematuria Intake Note: Patient is here for hospital discharge follow up. Patient was discharged from [facility] on 02/06/23 for Hematuria. Pt requesting work note from 02/03-02/16. 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 Accompanied by: Spouse Allergies Penicillins [PENICILLINS] Allergy (Intermediate, Verified 02/07/23 15:24) UNKNOWN Medication List - Last Reconciled 02/07/23 by Antonio Tuttle PA-C atorvastatin 10 mg PO BEDTIME blood sugar diagnostic (FreeStyle Lite Strips) Test Daily blood-glucose meter (FreeStyle Lite Meter kit) Test Daily cholecalciferol (vitamin D3) (Vitamin D3) 50 mcg PO DAILY lancets (BD Ultra-Fine II Lancets) Test Daily lisinopril 10 mg PO DAILY 90 days magnesium oxide 500 mg PO DAILY metformin 500 mg PO BID pyridoxine (vitamin B6) 100 mg PO DAILY 90 days semaglutide (Ozempic) 1 mg subcut HENRIQUEZ tamsulosin 0.4 mg PO BEDTIME 14 days tamsulosin 0.4 mg PO BEDTIME 30 days zinc 50 mg PO DAILY Tobacco use date assessed: 01/25/23 Dental Screening Dental Screen Date: 02/07/23 Did you have a dental visit in the last 12 months?: Yes Did you have a dental problem in the last 6 months where you did not have access to dental care?: No Was dental information given to patient?: Patient has dentist HPI [facility] 02/07 Hematuria HPI Details Patient is a 52-year-old male here today for follow-up visit. Patient has a past medical history significant for type 2 diabetes, hyperlipidemia, hypertension, morbid obesity. Nephrolithiasis--> interval history--> Patient recently seen at the [facility] for acute flank pain. Was found to have kidney stone that needed surgical removal. Recently underwent removal of kidney stone with urinary stent placement on January 23. He reports he return to work after his stent placement which is likely cause of his urinary bleeding due to heavy strenuous work. Therefore his clinical course was complicated by a hematuria and decreased urinary output requiring ER evaluation bladder irrigation. Was found to have swollen prostate Underwent stent removal Feb 02 complicated by gross hematuria and urinary blood clots. He currently has a Griffith catheter. He is due to have urinary catheterization removed tomorrow. [facility] Medical History Diabetes mellitus Pure hypercholesterolemia Benign essential hypertension Morbid obesity with BMI of 50.0-59.9, adult Surgical History Hx of colonoscopy No pertinent past surgical history Family History Mother Diabetes CHF (congestive heart failure) High blood pressure Father No problems noted. Other Substance abuse Social History Household Members: Family Housing: House Do you presently have visiting nurse or other home services: No Alcohol intake: former Patient Tobacco Use Status: Former Tobacco user Quit Date: 1989 e-Cigarette/Vaping Use: Never Used Second Hand Smoke Exposure: Yes service: No Current occupational status: employed Current occupation: [employer] Cognitive needs: No Hearing needs: No Vision needs: Yes Questionnaire Thrive Questionnaire Date Thrive assessed: 02/05/23 YAMILE-7 AMB Questionnaire YAMILE-7 Date YAMILE - 7 assessed: 01/25/23 Source: Developed by Drs. Josse Ortiz, Eda Patrick, Danilo Dumas and colleagues, with an educational alok from [employer]. Review of Systems Const Denies headache(s) Eyes Denies loss of vision ENT Denies vertigo, Denies dizziness, Denies headache(s) and Denies sore throat Card Denies chest pain, Denies leg edema and Denies lightheadedness Resp Denies cough, Denies hemoptysis and Denies wheezing GI Denies abdominal pain, Denies melena, Denies constipation, Denies diarrhea and Denies vomiting Denies dysuria, Denies urinary frequency and Denies urinary urgency Musc Denies arthralgias, Denies joint swelling, Denies numbness and Denies tingling Neuro Denies Abnormal speech present, Denies behavioral changes, Denies vertigo, Denies dizziness, Denies headache(s), Denies loss of vision, Denies memory loss, Denies numbness and Denies tingling Psych Denies anxiety, Denies behavioral changes, Denies depression, Denies memory loss and Denies panic attacks Mohan/Lymph Denies easy bleeding and Denies easy bruising Aller/Immun Denies wheezing Physical exam (Primary Care) Vital Signs: Last Vital Signs Pulse 68 02/07/23 14:58 BP 108/74 02/07/23 14:58 BMI result Body Mass Index 44.3 Tobacco/Smoking Status: Tobacco use Status Tobacco use date assessed 01/25/23 02/07/23 14:48 Patient Tobacco Use Status Former Tobacco user 02/07/23 14:48 e-Cigarette/Vaping Use Never Used 02/07/23 14:48 Thrive Assessment: Date of Thrive Assessment Date Thrive assessed 02/05/23 02/07/23 14:48 Const General: healthy appearing, no acute distress, alert and awake Nutritional Appearance: well nourished Orientation/consciousness: oriented to person, oriented to place and oriented to time HENMT Ears: TM's normal bilaterally General nose exam: Normal nasal mucous membranes and turbinates present Eyes Conjunctivae: conjunctivae normal Sclerae: sclerae normal Pupils: Equal, round and reactive pupils present Neck Neck: Yes no lymphadenopathy and Yes no JVD Thyroid: Thyroid normal Carotids: no bruits Resp Effort & Inspection: normal respiratory effort and not tachypneic Auscultation: no crackles, no rales, no rhonchi and no wheezes Cardio Rate: regular rate Rhythm: regular rhythm Heart sounds: no murmurs and normal S1 and S2 GI Palpation (GI): Soft to palpation, nontender, no hepatomegaly and no splenomegaly Auscultation: normal bowel sounds Skin General skin exam: no rashes or lesions noted and dry skin Neuro General: oriented to person, oriented to place and oriented to time Cranial nerves: Yes Equal, round and reactive pupils present Speech: No Abnormal speech present Gait exam (Neuro): Normal gait present Motor exam (neuro): no tremor noted Extrem Right upper extremity: full ROM Left upper extremity: full ROM Right lower extremity: full ROM; no edema Left lower extremity: full ROM; no edema Psych Mental Status: mental status grossly normal Speech and movement: Normal speech and movement present Affect: normal affect Attitude: cooperative Thought process: Normal thought process present Assessment and Plan Assessment & Plan (1) Nephrolithiasis: Code(s): N20.0 - Calculus of kidney Plan: As per HPI. As per HPI had kidney stone any urethral stent placed. Ureteral stent was removed. Clinical course complicated by gross hematuria and prostatitis. Fully catheterization needed to be placed Has been placed on tamsulosin due to urinary obstruction thought to be prostatitis. Has upcoming appointment with Urology for Griffith catheter to be removed. Filled out [facility] paperwork for 6 week continue his leave due to his surgical urinary procedures and complications. Due to return back to work as of February 21 2023 (2) Urinary retention with incomplete bladder emptying: Code(s): R33.9 - Retention of urine, unspecified Plan: As above (3) Hematuria: Code(s): R31.9 - Hematuria, unspecified Qualifiers: Hematuria type: gross Qualified Code(s): R31.0 - Gross hematuria Plan: Has been resolving. Medications: New prednisone 20 mg PO DAILY 7 days 7 tabs 0RF N41.9 - Inflammatory disease of prostate, unspecified Coding Level of Care Code Est Pt Level 4 (65056) Diagnoses Nephrolithiasis N20.0 Urinary retention with incomplete bladder emptying R33.9 Gross hematuria R31.0 Hematuria type: gross
[2023-02-07 14:58] VITALS: BP 108/74; PULSE 68; BMI 44.3
== END 2023-02-07 16:26 | disposition home or self-care (01) ==
PROVIDERS: PCP Physician Assistant; Visit Provider Physician Assistant
DX: N20.0 Calculus of kidney (principal); R33.9 Retention of urine, unspecified; R31.0 Gross hematuria
CPT/HCPCS: 99214

== ENCOUNTER → 2023-02-08 08:29 | Outpatient (BNVA) | payer BC, SELFPAY | PROVIDERS: Visit Provider Urology | DX: R33.9 Retention of urine, unspecified (principal) | CPT/HCPCS: 51700; 51798 ==

== ENCOUNTER 2023-09-18 08:08 | Outpatient (AMB) | payer BC, SELFPAY ==
[2023-09-18 08:18] VITALS: BP 150/80; PULSE 88; TEMP 36.8; O2SAT 98; BMI 44.2
--- NOTE | 2023-09-18 08:18 | AM.OFFWIN_ITS ---
Intake Vital Signs 09/18/23 08:18 Height 5 ft 11 in Weight 317 lb BMI 44.2 BP 150/80 H Blood Pressure Location Rt brachial Position Sitting Pulse 88 Pulse Source Pulse Oximeter Temp 98.2 F Temp Source Oral Pulse Oximetry (%) 98 Oxygen Delivery Method Room Air Intake Visit Reasons: EP neck/lump Intake Note: pt is here for left side behind neck, lump with leakage Patient Tobacco Use Status: Former Tobacco user Allergies Penicillins [PENICILLINS] Allergy (Intermediate, Verified 09/18/23 08:19) UNKNOWN Do you need a note to return to daycare/school/sports/work: Yes HPI HPI Comments History of Present Illness Details Patient is a 53-year-old male complaining of a lump on the back of his neck for the past 5 days. He thinks it burst yesterday or the day before and now is just leaking fluid but it was very painful before burst now it is less painful but he just wants to have it checked out. [facility] Medical History Diabetes mellitus Pure hypercholesterolemia Benign essential hypertension Morbid obesity with BMI of 50.0-59.9, adult Surgical History Hx of colonoscopy No pertinent past surgical history Family History Mother Diabetes CHF (congestive heart failure) High blood pressure Father No problems noted. Other Substance abuse Social History Household Members: Family Housing: House Do you presently have visiting nurse or other home services: No Alcohol intake: current Alcohol intake frequency: does not drink Alcohol type: beer and hard liquor Patient Tobacco Use Status: Former Tobacco user e-Cigarette/Vaping Use: Never Used Second Hand Smoke Exposure: Yes service: No Current occupational status: employed Current occupation: [employer] Cognitive needs: No Hearing needs: No Vision needs: Yes Review of Systems Const All systems reviewed & are unremarkable except as noted in HPI and below Physical Exam Vital Signs: Last Vital Signs Temp 98.2 F 09/18/23 08:18 Pulse 88 09/18/23 08:18 BP 150/80 H 09/18/23 08:18 Pulse Ox 98 09/18/23 08:18 Oxygen Delivery Method Room Air 09/18/23 08:18 BMI result Body Mass Index 44.2 Const General: cooperative, healthy appearing, comfortable, no acute distress and well developed Orientation/consciousness: patient oriented x3 Limitations: no limitations HEENT Head: Yes normal to inspection Eyes General: appearance normal, both eyes and all related structures Neck Other: Posterior neck, left side, 3 cm x 2 cm area of induration with serosanguineous weeping, not fluctuant , not erythematous Neck: Yes normal visual inspection, Yes full ROM, Yes no lymphadenopathy, Yes trachea midline and Yes supple Resp Effort & Inspection: normal respiratory effort and able to speak in complete sentences Skin General skin exam: no rashes or lesions noted Neuro General: patient oriented x3 Extrem General: Yes normal to inspection Assessment & Plan Assessment & Plan (1) Epidermoid cyst of neck: Code(s): L72.0 - Epidermal cyst Plan: As cyst is already leaking, and indurated, no material to express, is only weeping fluid so I will treat with Doxycycline. Advised patient if he develops a fever, infection gets worse or he is unable to move his neck without exquisite pain he should go to the emergency department. Plan see above. Medications: New doxycycline hyclate 100 mg PO BID 14 tabs 0RF Coding Level of Care Code Est Pt Level 3 (12301) Diagnoses Epidermoid cyst of neck L72.0
== END 2023-09-18 09:28 | disposition home or self-care (01) ==
PROVIDERS: PCP Physician Assistant; Visit Provider Physician Assistant
DX: L72.0 Epidermal cyst (principal)
CPT/HCPCS: 99213

== ENCOUNTER 2023-09-26 14:20 | Outpatient (AMB) | payer BC, SELFPAY ==
--- NOTE | 2023-09-26 14:26 | A.OFFPC_ITS ---
Vital Signs 09/26/23 14:29 Height 5 ft 11 in Weight 337 lb BMI 47.0 BP 112/76 Blood Pressure Location Lt brachial Position Sitting Pulse 101 H Pulse Source Pulse Oximeter Pulse Oximetry (%) 95 Oxygen Delivery Method Room Air Intake Visit Reasons: Follow Up Distribution Sales Representative Required: No Accompanied by: Self / Same As Patient Allergies Penicillins [PENICILLINS] Allergy (Intermediate, Verified 09/26/23 14:33) UNKNOWN Medication List - Last Reconciled 09/26/23 by Antonio Tuttle PA-C atorvastatin 10 mg PO BEDTIME blood sugar diagnostic (FreeStyle Lite Strips) Test Daily blood-glucose meter (FreeStyle Lite Meter kit) Test Daily cholecalciferol (vitamin D3) (Vitamin D3) 50 mcg PO DAILY lancets (BD Ultra-Fine II Lancets) Test Daily lisinopril 10 mg PO DAILY 90 days magnesium oxide 500 mg PO DAILY metformin 500 mg PO BID pyridoxine (vitamin B6) 100 mg PO DAILY 90 days semaglutide (Ozempic) 1 mg (0.75 mL) subcut HENRIQUEZ 4 weeks zinc 50 mg PO DAILY Tobacco use date assessed: 01/25/23 Dental Screening Dental Screen Date: 02/07/23 HPI Follow Up HPI Details Patient is a 53-year-old male here today for follow-up visit. Patient has a past medical history significant for type 2 diabetes, hyperlipidemia, hyperten vitaly, nephrolithiasis, morbid obesity. .. Type 2 diabetes:? Has been started on Ozempic and has noted some weight loss initially though unfortunately has gained weight back and he does admit to tary indiscretion. Today's A1c acceptable at 6.3. Continues on metformin 500 b.i.d.. . Hypertension:? Blood pressure today in office acceptable.? Will continue him on his current dose of lisinopril.? He denies any headaches , chest discomforts or dizziness. . Hyperlipidemia:? Continues on statin therapy without any side effect.? Most recent LDL above 100.? Will recheck fasting lipid panel fullness above 100 will consider increasing potency of statin. Laboratory Tests 09/10/22 01/04/23 14:17 21:57 RBC 5.00 Creatinine 0.86 1.33 [facility] Medical History Diabetes mellitus Pure hypercholesterolemia Benign essential hypertension Morbid obesity with BMI of 50.0-59.9, adult Surgical History Hx of colonoscopy No pertinent past surgical history Family History Mother Diabetes CHF (congestive heart failure) High blood pressure Father No problems noted. Other Substance abuse Social History Household Members: Family Housing: House Do you presently have visiting nurse or other home services: No Alcohol intake: former Patient Tobacco Use Status: Former Tobacco user e-Cigarette/Vaping Use: Never Used Second Hand Smoke Exposure: Yes service: No Current occupational status: employed Current occupation: [employer] Cognitive needs: No Hearing needs: No Vision needs: Yes Questionnaire PHQ-9 Over the last 2 weeks, how often have you been bothered by any of the following problems? 1. Little interest or pleasure in doing things: not at all 2. Feeling down, depressed, or hopeless: not at all 3. Trouble falling or staying asleep, or sleeping too much: not at all 4. Feeling tired or having little energy: not at all 5. Poor appetite or overeating: not at all 6. Feeling bad about yourself - or that you are a failure or have let yourself or your family down: not at all 7. Trouble concentrating on things, such as reading the newspaper or watching television: not at all 8. Moving or speaking so slowly that other people could have noticed. Or the opposite - being so fidgety or restless that you have been moving around a lot more than usual: not at all 9. Thoughts that you would be better off or of hurting yourself in some way: not at all Total score: 0 Depression Screening Interpretation: Negative Depression Screening Done: Yes 00542 - PHQ-9 Billing: Yes Source: Developed by Drs. Josse Ortiz, Eda Patrick, Danilo Dumas and colleagues, with an educational alok from [employer]. Thrive Questionnaire Date Thrive assessed: 09/26/23 I am a: Patient What is your living situation today?: I have a steady place to live Within the past 12 months, did the food you bought not last and you didn't have the money to get more?: Never true Within the past 12 months, did you worry whether your food would run out before you got money to buy more?: Never true Do you have trouble paying for medicines?: No Do you have trouble getting transportation to medical appointments?: No Do you have trouble paying your heating and electricity bill?: No Do you have trouble taking care of your child, family member or friend?: No Do you have trouble with day-to-day activities such as bathing, preparing meals, shopping, managing finances, etc.?: No Are you currently unemployed and looking for a job?: No Are you interested in more education?: No Please select the resources that you would like help with: None Currently or been in a relationship where the following occur: No concerns re ported THRIVE Score: 0 AUDIT C Alcohol Use Questionnaire (AUDIT-C) 1. How often do you have a drink containing alcohol?: Never 3. How often do you have six or more drinks on one occasion?: Never Total Score: 0 YAMILE-7 AMB Questionnaire YAMILE-7 Date YAMILE - 7 assessed: 09/26/23 Feeling nervous, anxious, or on edge: 0 = Not at all Not being able to stop or control worryin = Not at all Worrying too much about different things: 0 = Not at all Trouble relaxin = Not at all Being so restless that it is hard to sit still: 0 = Not at all Becoming easily annoyed or irritable: 0 = Not at all Feeling afraid as if something awful might happen: 0 = Not at all Total YAMILE-7 score (0-4 normal; 5-9 mild; 10-14 moderate; 15-21 severe): 0 Source: Developed by Drs. Josse Ortiz, Eda Patrick, Danilo Dumas and colleagues, with an educational alok from [employer]. YAMILE-7 Assessment Billing YAMILE-7 Assessment Tool: YAMILE-7 Assessment 35922 Review of Systems Const Denies headache(s) Eyes Denies loss of vision ENT Denies vertigo, Denies dizziness, Denies headache(s) and Denies sore throat Card Denies chest pain, Denies leg edema and Denies lightheadedness Resp Denies cough, Denies hemoptysis and Denies wheezing GI Denies abdominal pain, Denies melena, Denies constipation, Denies diarrhea and Denies vomiting Denies dysuria, Denies urinary frequency and Denies urinary urgency Musc Denies arthralgias, Denies joint swelling, Denies numbness and Denies tingling Neuro Denies Abnormal speech present, Denies behavioral changes, Denies vertigo, Denies dizziness, Denies headache(s), Denies loss of vision, Denies memory loss, Denies numbness and Denies tingling Psych Denies anxiety, Denies behavioral changes, Denies depression, Denies memory loss and Denies panic attacks Mohan/Lymph Denies easy bleeding and Denies easy bruising Aller/Immun Denies wheezing Physical exam (Primary Care) Vital Signs: Last Vital Signs Pulse 101 H 09/26/23 14:29 BP 112/76 09/26/23 14:29 Pulse Ox 95 09/26/23 14:29 Oxygen Delivery Method Room Air 09/26/23 14:29 BMI result Body Mass Index 47.0 Tobacco/Smoking Status: Tobacco use Status Tobacco use date assessed 01/25/23 09/26/23 14:27 Patient Tobacco Use Status Former Tobacco user 09/26/23 14:27 e-Cigarette/Vaping Use Never Used 09/26/23 14:27 PHQ-9: PHQ-9 Score PHQ-9: Total score 0 09/26/23 14:41 Depression Screening Interpretation: Negative Thrive Assessment: Date of Thrive Assessment Date Thrive assessed 09/26/23 09/26/23 14:41 Currently or been in a relationship where the following occur: No concerns reported Const General: healthy appearing, no acute distress, alert and awake Nutritional Appearance: well nourished Orientation/consciousness: oriented to person, oriented to place and oriented to time HENMT Ears: TM's normal bilaterally General nose exam: Normal nasal mucous membranes and turbinates present Eyes Conjunctivae: conjunctivae normal Sclerae: sclerae normal Pupils: Equal, round and reactive pupils present Neck Neck: Yes no lymphadenopathy and Yes no JVD Thyroid: Thyroid normal Carotids: no bruits Resp Effort & Inspection: normal respiratory effort and not tachypneic Auscultation: no crackles, no rales, no rhonchi and no wheezes Cardio Rate: regular rate Rhythm: regular rhythm Heart sounds: no murmurs and normal S1 and S2 GI Palpation (GI): Soft to palpation, nontender, no hepatomegaly and no splenomegaly Auscultation: normal bowel sounds Skin General skin exam: no rashes or lesions noted and dry skin Neuro General: oriented to person, oriented to place and oriented to time Cranial nerves: Yes Equal, round and reactive pupils present Speech: No Abnormal speech present Gait exam (Neuro): Normal gait present Motor exam (neuro): no tremor noted Extrem Right upper extremity: full ROM Left upper extremity: full ROM Right lower extremity: full ROM; no edema Left lower extremity: full ROM; no edema Psych Mental Status: mental status grossly normal Speech and movement: Normal speech and movement present Affect: normal affect Attitude: cooperative Thought process: Normal thought process present Results AMB Hemoglobin A1c AMB Hemoglobin A1c 6.3 % Last Edit by ISIDRA Ortiz on 09/26/23 14:42 Results Reviewed Results Reviewed: Laboratory Last Values Hgb A1c (Clinic) 6.3 % (4.0-6.0) H 09/26/23 14:41 Assessment and Plan Assessment & Plan (1) Diabetes mellitus: Comment: I am unable to review his most recent blood work-however he in his are informed. Reportedly his hemoglobin A1c has improved Reviewed PCP note Code(s): E11.9 - Type 2 diabetes mellitus without complications Qualifiers: Diabetes mellitus complication status: with hyperglycemia Diabetes mellitus nursing home insulin use: without director long term care use Diabetes mellitus type: type 2 Qualified Code(s): E11.65 - Type 2 diabetes mellitus with hyperglycemia Plan: Patient's A1c today 6.3. Patient has type 2 diabetes well controlled. Today's A1c is 6.3\. He reports dietary indiscretion has gained weight back. Would like to increase his Ozempic to a higher dose. Will increase him to 1.7 mg weekly. Will continue current dose of metformin 500 b.i.d.. Goal A1c is to remain below 7.0 (2) Nephrolithiasis: Code(s): N20.0 - Calculus of kidney Plan: Is status post kidney stone removal. Has no further episodes. He would like to continue on vitamin B6 to reduce risk. Advised to stay well hydrated. (3) Pure hypercholesterolemia: Code(s): E78.00 - Pure hypercholesterolemia, unspecified Plan: Patient's most recent lipid panel showing appropriate total cholesterol and LDL. Will continue current statin therapy with goal LDL to remain below 100. (4) Benign essential hypertension: Code(s): I10 - Essential (primary) hypertension Plan: Patient's blood pressure today in office acceptable. Will continue current dose of lisinopril with goal blood pressure to remain below 140/90 Orders: Orders AMB Hemoglobin A1c 09/26/23 E11.65 - Type 2 diabetes mellitus with hyperglycemia Vitamin D 25-OH Total 09/26/23 E11.65 - Type 2 diabetes mellitus with hyperglycemia Medications: New semaglutide (weight loss) (Wegovy) increase dose to 1.7mg weekly 1.7 mg (0.75 mL) subcut QWEEK 3 mL 2RF 4 weeks E66.01 - Morbid (severe) obesity due to excess calories, Z68.42 - Body mass index [BMI] 45.0-49.9, adult Refilled pyridoxine (vitamin B6) 100 mg PO DAILY 90 tabs 1RF 90 days E11.65 - Type 2 diabetes mellitus with hyperglycemia Discontinued semaglutide (Ozempic) Discontinued Reason: Doctor's Order 1 mg (0.75 mL) subcut HENRIQUEZ 4 weeks 3 mL 3RF E11.65 - Type 2 diabetes mellitus with hyperglycemia Patient Instructions: Goal: A1c to remain below 7.0, LDL to be below 100 Barriers: Adherence to physical activity and healthy eating habits Coding Level of Care Code Est Pt Level 4 (98653) Diagnoses Type 2 diabetes mellitus with hyperglycemia, without long-term current use of insulin E11.65 Diabetes mellitus complication status: with hyperglycemia Diabetes mellitus nursing home insulin use: without nursing home use Diabetes mellitus type: type 2 Nephrolithiasis N20.0 Pure hypercholesterolemia E78.00 Benign essential hypertension I10 Additional Codes YAMILE-7 Assessment Billing - YAMILE-7 Assessment Tool: YAMILE-7 Assessment [id number] ([id number])
[2023-09-26 14:29] VITALS: BP 112/76; PULSE 101; O2SAT 95; BMI 47.0
== END 2023-09-26 14:49 | disposition home or self-care (01) ==
PROVIDERS: PCP Physician Assistant; Visit Provider Physician Assistant
DX: E11.65 Type 2 diabetes mellitus with hyperglycemia (principal); N20.0 Calculus of kidney; E78.00 Pure hypercholesterolemia, unspecified; I10 Essential (primary) hypertension
CPT/HCPCS: 83036; 99214

== ENCOUNTER 2024-02-01 07:19 | Outpatient (REF) | payer BC, SELFPAY ==
--- OUTSIDE RECORDS SUMMARY | 2024-02-06 22:57 | XMS_ITS | Patient Health Record ---
Author Organization [facility] Address [address] [place] [address] Care Team Providers Care Chemical Laboratory Tester Name Role Phone Humble MARTINEZ, [place] Primary Care Provider Erin Xiao Unavailable [phone] Antonio Tuttle Unavailable Unavailable Allergies Allergen (clinical drug ingredient) Drug/Non Drug Allergy documented on EMR Reaction Allergy Type Onset Date Status morphine Morphine cold sweats, nausea Drug Allergy Active Penicillin Unknown Drug Allergy Active Reason For Referral No Information Medications Medication SIG (Take, Route, Frequency, Duration) Notes Start Date End Date Status Ciclopirox Olamine 0.77 % 1 application to affected area Externally Twice a day to effected areas on feet for 30 days 10/12/2021 Active Atorvastatin Calcium 10 MG 1 tablet Oral ly Once a day for 30 day(s) Active Lisinopril 5 MG 1 tablet Orally Once a day for 30 day(s) Active metFORMIN HCl 500 MG 1 tablet with a jeffrey l Orally Once a day for 30 day(s) Active Social History Tobacco Use: Social History Observation Description Date Details (start date - stop date) Former Smoker NA - NA Tobacco Use/Smoking Question Answer Notes Are you a: former smoker Additional Findings: Tobacco Non-User Ex-cigaret te smoker Alcohol Screen Question Answer Notes Did you have a drink containing alcohol in the p ast year? No Points 0 Interpretation Negative Tobacco use other than smoking: Question Answer Notes Are you an other tobacco user? No Problems Problem Type SNOMED Code ICD Code Onset Dates Problem Status W/U Status Risk Notes Problem [id number] Type 2 diabetes mellitus without complication, without long-term current use of insulin (E11.9) Active confirmed Plan Of Treatment No Information Insurance Providers Payer Name Payer Address Payer Phone Subscriber Number Group Number Insured Name Patient Relationship to Insured Coverage Start Date Coverage End Date Ever [employer] [address] [place] [address] [id number] Yo Rendon Self - patient is the insured Medical (General) History Medical History History ICD Code CAD (Cholesterol) Diabetes mellitus Headaches/Migraines High blood pressure Chicken pox Surgical History Surgery Date(Month/Year)
== END 2024-02-01 07:20 | disposition home or self-care (01) ==
LOC: HO.LAB 07:19
PROVIDERS: PCP Physician Assistant; Visit Provider Physician Assistant
DX: E11.65 Type 2 diabetes mellitus with hyperglycemia (principal); E78.00 Pure hypercholesterolemia, unspecified; E66.813 Obesity, class 3; I10 Essential (primary) hypertension; R45.4 Irritability and anger; Z79.899 Other long term (current) drug therapy
CPT/HCPCS: 36415; 82306; 83036; 96127

== ENCOUNTER 2024-02-01 07:48 | Outpatient (AMB) | payer BC, SELFPAY ==
[2024-02-01 07:51] VITALS: BP 112/62; PULSE 109; O2SAT 98; BMI 45.3
--- NOTE | 2024-02-01 07:51 | MHC.PC.OV ---
Vital Signs 02/01/24 07:51 Height 5 ft 11 in Weight 325 lb BMI 45.3 BP 112/62 Blood Pressure Location Lt brachial Position Sitting Pulse 109 H Pulse Source Pulse Oximeter Pulse Oximetry (%) 98 Oxygen Delivery Method Room Air Intake Visit Reasons: f/u Weight check and type 2 diabetes Allergies Penicillins [PENICILLINS] Allergy (Intermediate, Verified 02/01/24 08:01) UNKNOWN Medication List - Last Reconciled 02/01/24 by Antonio Tuttle PA-C atorvastatin 10 mg PO BEDTIME blood sugar diagnostic (FreeStyle Lite Strips) Test Daily blood-glucose meter (FreeStyle Lite Meter kit) Test Daily cholecalciferol (vitamin D3) (Vitamin D3) 50 mcg PO DAILY lancets (BD Ultra-Fine II Lancets) Test Daily lisinopril 10 mg PO DAILY 90 days magnesium oxide 500 mg PO DAILY metformin 500 mg PO BID pyridoxine (vitamin B6) 100 mg PO DAILY 90 days semaglutide (weight loss) (Wegovy) 1.7 mg (0.75 mL) subcut QWEEK 4 weeks tirzepatide (Mounjaro) 7.5 mg (0.5 mL) subcut QWEEK 4 weeks zinc 50 mg PO DAILY Tobacco use date assessed: 02/01/24 Dental Screening Dental Screen Date: 02/01/24 Did you have a dental visit in the last 12 months?: Yes Did you have a dental problem in the last 6 months where you did not have access to dental care?: No Was dental information given to patient?: Patient has dentist HPI f/u Weight check and type 2 diabetes HPI Details Patient is a 53-year-old male here today for follow-up visit. Patient has a past medical history significant for type 2 diabetes, hyperlipidemia, hypertension, nephrolithiasis, morbid obesity. Concern--> he reports his family has noted some anger issue from his use. He believes that this is stress related from his stressful work environment. He is not interested in any medication or mental health therapy at this time. .. Type 2 diabetes:? Patient currently on it alternative GLP 1 (Mounjaro). Today's A1c acceptable . Continues on metformin 500 b.i.d andGLP. . Class 3 obesity: Has lost weight since last office visit, reports low appetite secondary to GLP 1. Hypertension:? Blood pressure today in office acceptable.? Will continue him on his current dose of lisinopril.? He denies any headaches , chest discomforts or dizziness. . Hyperlipidemia:? Continues on statin therapy without any side effect.? Most recent LDL above 100.? Will recheck fasting lipid panel fullness above 100 will consider increasing potency of statin. [facility] Medical History (Updated 02/01/24 @ 08:06 by Antonio Tuttle PA-C) Diabetes mellitus Pure hypercholesterolemia Benign essential hypertension Surgical History Hx of colonoscopy No pertinent past surgical history Family History Mother Diabetes CHF (congestive heart failure) High blood pressure Father No problems noted. Other Substance abuse Social History Household Members: Family Housing: House Do you presently have visiting nurse or other home services: No Alcohol intake: former Patient Tobacco Use Status: Former Tobacco user Tobacco use type: Cigarette e-Cigarette/Vaping Use: Never Used Second Hand Smoke Exposure: Yes service: No Current occupational status: employed Current occupation: [employer] Cognitive needs: No Hearing needs: No Vision needs: Yes Questionnaire PHQ-9 Over the last 2 weeks, how often have you been bothered by any of the following problems? 1. Little interest or pleasure in doing things: not at all 2. Feeling down, depressed, or hopeless: not at all 3. Trouble falling or staying asleep, or sleeping too much: not at all 4. Feeling tired or having little energy: not at all 5. Poor appetite or overeating: not at all 6. Feeling bad about yourself - or that you are a failure or have let yourself or your family down: not at all 7. Trouble concentrating on things, such as reading the newspaper or watching television: not at all 8. Moving or speaking so slowly that other people could have noticed. Or the opposite - being so fidgety or restless that you have been moving around a lot more than usual: not at all 9. Thoughts that you would be better off or of hurting yourself in some way: not at all Total score: 0 Depression Screening Interpretation: Negative Depression Screening Done: Yes 31514 - PHQ-9 Billing: Yes Source: Developed by Drs. Josse Ortiz, Eda Patrick, Danilo Dumas and colleagues, with an educational alok from [employer]. Thrive Questionnaire Date Thrive assessed: 02/01/24 I am a: Patient What is your living situation today?: I have a steady place to live Within the past 12 months, did the food you bought not last and you didn't have the money to get more?: Never true Within the past 12 months, did you worry whether your food would run out before you got money to buy more?: Never true Do you have trouble paying for medicines?: No Do you have trouble getting transportation to medical appointments?: No Do you have trouble paying your heating and electricity bill?: No Do you have trouble taking care of your child, family member or friend?: No Do you have trouble with day-to-day activities such as bathing, preparing meals, shopping, managing finances, etc.?: No Are you currently unemployed and looking for a job?: No Are you interested in more education?: No Please select the resources that you would like help with: None Currently or been in a relationship where the following occur: No concerns reported THRIVE Score: 0 AUDIT C Alcohol Use Questionnaire (AUDIT-C) 1. How often do you have a drink containing alcohol?: Never 2. How many drinks containing alcohol do you have on a typical day when you are drinking?: 1 or 2 3. How often do you have six or more drinks on one occasion?: Never Total Score: 0 YAMILE-7 AMB Questionnaire YAMILE-7 Date YAMILE - 7 assessed: 02/01/24 Feeling nervous, anxious, or on edge: 0 = Not at all Not being able to stop or control worryin = Not at all Worrying too much about different things: 0 = Not at all Trouble relaxin = Not at all Being so restless that it is hard to sit still: 0 = Not at all Becoming easily annoyed or irritable: 0 = Not at all Feeling afraid as if something awful might happen: 0 = Not at all Total YAMILE-7 score (0-4 normal; 5-9 mild; 10-14 moderate; 15-21 severe): 0 Source: Developed by Drs. Josse Ortiz, Eda Patrick, Danilo Dumas and colleagues, with an educational alok from [employer]. YAMILE-7 Assessment Billing YAMILE-7 Assessment Tool: YAMILE-7 Assessment 29497 Review of Systems Const Denies headache(s) Eyes Denies loss of vision ENT Denies vertigo, Denies dizziness, Denies headache(s) and Denies sore throat Card Denies chest pain, Denies leg edema and Denies lightheadedness Resp Denies cough, Denies hemoptysis and Denies wheezing GI Denies abdominal pain, Denies melena, Denies constipation, Denies diarrhea and Denies vomiting Denies dysuria, Denies urinary frequency and Denies urinary urgency Musc Denies arthralgias, Denies joint swelling, Denies numbness and Denies tingling Neuro Denies Abnormal speech present, Denies behavioral changes, Denies vertigo, Denies dizziness, Denies headache(s), Denies loss of vision, Denies memory loss, Denies numbness and Denies tingling Psych Denies anxiety, Denies behavioral changes, Denies depression, Denies memory loss and Denies panic attacks Mohan/Lymph Denies easy bleeding and Denies easy bruising Aller/Immun Denies wheezing Physical exam (Primary Care) Vital Signs: Last Vital Signs Pulse 109 H 02/01/24 07:51 BP 112/62 02/01/24 07:51 Pulse Ox 98 02/01/24 07:51 Oxygen Delivery Method Room Air 02/01/24 07:51 BMI result Body Mass Index 45.3 Tobacco/Smoking Status: Tobacco use Status Tobacco use date assessed 02/01/24 02/01/24 07:52 Patient Tobacco Use Status Former Tobacco user 02/01/24 07:52 Tobacco use type Cigarette 02/01/24 07:52 e-Cigarette/Vaping Use Never Used 02/01/24 07:52 PHQ-9: PHQ-9 Score PHQ-9: Total score 0 02/01/24 08:06 Depression Screening Interpretation: Negative Thrive Assessment: Date of Thrive Assessment Date Thrive assessed 02/01/24 02/01/24 07:52 Currently or been in a relationship where the following occur: No concerns reported Const General: healthy appearing, no acute distress, alert and awake Nutritional Appearance: well nourished Orientation/consciousness: oriented to person, oriented to place and oriented to time HENMT Ears: TM's normal bilaterally General nose exam: Normal nasal mucous membranes and turbinates present Eyes Conjunctivae: conjunctivae normal Sclerae: sclerae normal Pupils: Equal, round and reactive pupils present Neck Neck: Yes no lymphadenopathy and Yes no JVD Thyroid: Thyroid normal Carotids: no bruits Resp Effort & Inspection: normal respiratory effort and not tachypneic Auscultation: no crackles, no rales, no rhonchi and no wheezes Cardio Rate: regular rate Rhythm: regular rhythm Heart sounds: no murmurs and normal S1 and S2 GI Palpation (GI): Soft to palpation, nontender, no hepatomegaly and no splenomegaly Auscultation: normal bowel sounds Skin General skin exam: no rashes or lesions noted and dry skin Neuro General: oriented to person, oriented to place and oriented to time Cranial nerves: Yes Equal, round and reactive pupils present Speech: No Abnormal speech present Gait exam (Neuro): Normal gait present Motor exam (neuro): no tremor noted Extrem Right upper extremity: full ROM Left upper extremity: full ROM Right lower extremity: full ROM; no edema Left lower extremity: full ROM; no edema Psych Mental Status: mental status grossly normal Speech and movement: Normal speech and movement present Affect: normal affect Attitude: cooperative Thought process: Normal thought process present Results AMB Hemoglobin A1c AMB Hemoglobin A1c 6.2 % Last Edit by Ashlee Washington CMA on 02/01/24 08:13 Coding Level of Care Code Est Pt Level 4 (50542) Diagnoses Type 2 diabetes mellitus with hyperglycemia, without long-term current use of insulin E11.65 Diabetes mellitus type: type 2 Diabetes mellitus exterminator helper insulin use: without exterminator helper use Diabetes mellitus complication status: with hyperglycemia Pure hypercholesterolemia E78.00 Class 3 obesity E66.813 Benign essential hypertension I10 Outbursts of anger R45.4 Additional Codes YAMILE-7 Assessment Billing - YAMILE-7 Assessment Tool: YAMILE-7 Assessment 16119 ([id number]) PHQ-9 - 66848 - PHQ-9 Billing: Yes ([id number]) Assessment & Plan Assessment & Plan (1) Diabetes mellitus: Comment: I am unable to review his most recent blood work-however he in his are informed. Reportedly his hemoglobin A1c has improved Reviewed PCP note Code(s): E11.9 - Type 2 diabetes mellitus without complications Category: Medical Qualifiers: Diabetes mellitus type: type 2 Diabetes mellitus exterminator helper insulin use: without exterminator helper use Diabetes mellitus complication status: with hyperglycemia Qualified Code(s): E11.65 - Type 2 diabetes mellitus with hyperglycemia Plan: Patient's type 2 diabetes well controlled with current antihyperglycemic medications. Today's A1c acceptable at 6.2. Goal A1c is to remain below 6.5 (2) Pure hypercholesterolemia: Code(s): E78.00 - Pure hypercholesterolemia, unspecified Category: Medical Plan: Most recent lipid panel showing good control of his total cholesterol and LDL. He continues on atorvastatin 10 mg with good effect. Goal LDL to remain below 100 (3) Class 3 obesity: Code(s): E66.813 - Obesity, class 3 Category: Medical Plan: Patient does understand his BMI is over 40 will continue working on being more physically active and adapting to better eating habits to reduce his weight. He continues on GLP 1 which has helped him lose weight as well. (4) Benign essential hypertension: Code(s): I10 - Essential (primary) hypertension Category: Medical Plan: Patient's blood pressure acceptable today in office. Will continue current dose of lisinopril with goal blood pressure to remain below 140/90 (5) Outbursts of anger: Code(s): R45.4 - Irritability and anger Category: Medical Plan: He has used does report having some anger issues that he relates to stressful job. He is not interested in anxiety pills or mental health therapy at this time. Orders: Orders Microalbumin, Random (w Creat) Today I10 - Essential (primary) hypertension Lipid Panel Today E78.00 - Pure hypercholesterolemia, unspecified AMB Hemoglobin A1c Today Z13.9 - Encounter for screening, unspecified Comprehensive [place]. Panel Fast Today I10 - Essential (primary) hypertension Complete Blood Count no Diff Today I10 - Essential (primary) hypertension Prostate Specific Antigen Scr Today I10 - Essential (primary) hypertension, Z12.5 - Encounter for screening for malignant neoplasm of prostate Medications: Discontinued semaglutide (weight loss) (Xavi) increase dose to 1.7mg weekly Discontinued Reason: Doctor's Order 1.7 mg (0.75 mL) subcut QWEEK 4 weeks 3 mL 2RF E66.01 - Morbid (severe) obesity due to excess calories, Z68.42 - Body mass index [BMI] 45.0-49.9, adult
== END 2024-02-01 08:24 | disposition home or self-care (01) ==
PROVIDERS: PCP Physician Assistant; Visit Provider Physician Assistant
DX: E11.65 Type 2 diabetes mellitus with hyperglycemia (principal); E78.00 Pure hypercholesterolemia, unspecified; Z68.42 Body mass index [BMI] 45.0-49.9, adult; E66.813 Obesity, class 3; I10 Essential (primary) hypertension; R45.4 Irritability and anger

== ENCOUNTER 2024-04-12 08:06 | Outpatient (REF) | payer BC, SELFPAY ==
[2024-04-12 10:55] LABS: Influenza A PCR NEGATIVE (Negative); Influenza B PCR NEGATIVE (Negative); Resp Syncy Virus RNA Qual PCR NEGATIVE (Negative); SARS COV2 PCR INHOUSE NEGATIVE (Negative)
== END 2024-04-12 08:07 | disposition home or self-care (01) ==
LOC: HO.LAB 08:06
PROVIDERS: PCP Physician Assistant; Visit Provider Physician Assistant
DX: J06.9 Acute upper respiratory infection, unspecified (principal)
CPT/HCPCS: 0241U

== ENCOUNTER 2024-04-12 08:06 | Outpatient (AMB) | payer BC, SELFPAY ==
--- OUTSIDE RECORDS SUMMARY | 2024-04-12 08:09 | XMS_ITS | Patient Health Record ---
Author Organization [facility] Address [address] [place] [address] Care Team Providers Care Bookkeeper Receptionist Name Role Phone Humble MARTINEZ, [place] Primary Care Provider Erin Xiao Unavailable [phone] Antonio Tuttle Unavailable Unavailable Allergies Allergen (clinical [...] Problem Status W/U Status Risk Notes Problem [id number] Type 2 diabetes mellitus without complication, without long-term current use of insulin (E11.9) Active confirmed Plan Of Treatment No Information Insurance Providers Payer Name Payer Address Payer Phone Subscriber Number Group Number Insured Name Patient Relationship to Insured Coverage Start Date Coverage End Date Ever Montes [place] [address] [place] [address] [id number] Yo Rendon Self - patient is the insured Medical (General) History Medical History History ICD Code CAD (Cholesterol) Diabetes mellitus Headaches/Migraines High blood pressure Chicken pox Surgical History Surgery Date(Month/Year)
--- NOTE | 2024-04-12 08:32 | MHC.OFFWIV ---
Intake Vital Signs 04/12/24 08:34 Weight 334 lb BP 110/78 Blood Pressure Location Rt brachial Position Sitting Pulse 92 Pulse Source Pulse Oximeter Temp 98.2 F Temp Source Oral Pulse Oximetry (%) 98 Oxygen Delivery Method Room Air Intake Visit Reasons: EP cough, sore throat, headache Intake Note: Patient here for cough, chest pain from coughing and headaches that have been present for a couple of days. Patient Tobacco Use Status: Former Tobacco user Allergies Penicillins [PENICILLINS] Allergy (Intermediate, Verified 04/12/24 08:35) UNKNOWN Do you need a note to return to daycare/school/sports/work: Yes HPI HPI Comments History of Present Illness Details History - The patient is a 54 year old male presenting with a sore throat, headache, cough, and diarrhea. - The symptoms started five days ago, progressing from sore throat to headache and cough. - Initial symptoms were managed using [id number]-yzeknwn medications including Tylenol and Mucenex cough drops. - Diarrhea episodes were reported, no bloody or black stools. - The patient denied having any recent fever despite feeling warm. - No significant difficulty in breathing was reported, although wheezing was noted. - The patient has no history of chronic respiratory conditions and maintains good respiratory habits by not smoking or vaping. - Work and social precautions such as mask-wearing and hand hygiene have been maintained to prevent transmission of illness at workplace. Physical Exam General: Cooperative, healthy appearing, comfortable and no acute distress Orientation/consciousness: Patient oriented x3 Limitations: No limitations Head: Normal to inspection Ears: Hearing grossly normal bilaterally, external ears normal and TM's normal bilaterally Nose: Normal external nose present, Normal nares present and No nasal discharge present Face and sinus: Normal facial exam and Yes sinuses nontender Mouth: Normal oral and palatal mucosa present and moist mucous membranes Throat: Yes tonsils normal, Yes uvula midline. Posterior oropharynx erythema Eyes: Appearance normal, both eyes and all related structures Neck: Normal visual inspection Respiratory: Clear to auscultation bilaterally. Normal respiratory effort, able to speak in complete sentences, Actively coughing, no respiratory distress, not tachypneic, no tripod positioning and no use of accessory muscles Cardiovascular: Regular rate and rhythm. Normal S1 and S2 Skin: No rashes or lesions noted Neuro: Patient oriented x3 Extremities: Normal to inspection and Yes no clubbing, cyanosis or edema [facility] Medical History Diabetes mellitus Pure hypercholesterolemia Benign essential hypertension Surgical History Hx of colonoscopy No pertinent past surgical history Family History Mother Diabetes CHF (congestive heart failure) High blood pressure Father No problems noted. Other Substance abuse Social History Household Members: Family Housing: House Do you presently have visiting nurse or other home services: No Alcohol intake: former Patient Tobacco Use Status: Former Tobacco user Tobacco use type: Cigarette e-Cigarette/Vaping Use: Never Used Second Hand Smoke Exposure: Yes service: No Current occupational status: employed Current occupation: [employer] Cognitive needs: No Hearing needs: No Vision needs: Yes Review of Systems Const All systems reviewed & are unremarkable except as noted in HPI and below Physical Exam Vital Signs: Last Vital Signs Temp 98.2 F 04/12/24 08:34 Pulse 92 04/12/24 08:34 BP 110/78 04/12/24 08:34 Pulse Ox 98 04/12/24 08:34 Oxygen Delivery Method Room Air 04/12/24 08:34 Assessment & Plan Assessment & Plan (1) URI, acute: Code(s): J06.9 - Acute upper respiratory infection, unspecified Plan: Plan Testing for influenza, COVID-19, and RSV was ordered to determine the specific viral etiology of the symptoms. A prescription for Tessalon Perles was provided to suppress the cough, with recommendations to use it particularly at night. The patient was advised to hydrate well to help with mucus clearance and to take ibuprofen for inflammation. The oxygen saturation and lung clarity ruled out immediate concern for pneumonia. A note excusing work was provided to allow for recovery, and plans were made to update the patient with test results as soon as they are available. Patient was informed and verbally consented to the use of an ambient scribe for clinic note documentation during this visit Orders: Orders SARS-CoV2/FLU/RSV Today J06.9 - Acute upper respiratory infection, unspecified Medications: New benzonatate 200 mg PO TID PRN 14 caps 0RF cough Coding Level of Care Code Est Pt Level 3 (75040) Diagnoses URI, acute J06.9
[2024-04-12 08:34] VITALS: BP 110/78; PULSE 92; TEMP 36.8; O2SAT 98
== END 2024-04-12 08:51 | disposition home or self-care (01) ==
PROVIDERS: PCP Physician Assistant; Visit Provider Physician Assistant
DX: J06.9 Acute upper respiratory infection, unspecified (principal)

== ENCOUNTER 2024-06-02 22:46 | Emergency (ER) | payer BC, SELFPAY ==
[2024-06-02 23:21] VITALS: BP 125/84; PULSE 88; RESP 18; TEMP 36.7; O2SAT 98; BMI 44.0
--- NOTE | 2024-06-02 23:28 | ECG_ITS ---
Test Reason : cp Blood Pressure : */* mmHG Vent. Rate : 83 BPM Atrial Rate : 83 BPM P-R Int : 138 ms QRS Dur : 74 ms QT Int : 342 ms P-R-T Axes : 2 3 11 degrees QTcB Int : 401 ms Normal sinus rhythm Normal ECG When compared with ECG of 10-Sep-2022 13:53, No significant change was found Referred By: Generic ED Physician Electronically Signed By: Kenny Roa
[2024-06-02 23:45] LABS: MANUAL DIFF FLAG NO
[2024-06-02 23:47] LABS: Basophils Percent Auto 0.3 % (0-2); Eosinophils Absolute Auto 0.1 X10*3/uL (0.0-0.4); Eosinophils Percent Auto 1.1 % (0-4); Hematocrit 45.5 % (42.0-52.0); Hemoglobin 15.7 g/dl (14.0-18.0); Imm Gran Abs Auto 0.03 X10*3/uL (0.00-0.03); Imm Gran Pct Auto 0.3 % (0.0-0.4); Lymphocytes Absolute Auto 1.7 X10*3/uL (1.2-4.9); Lymphocytes Percent Auto 19.4 % (20-40); Mean Corpuscular HGB Conc 34.5 g/dl (31.0-36.0); Mean Corpuscular Hemoglobin 29.5 pg (27.0-33.0); Mean Corpuscular Volume 85.5 fL (80.0-98.0); Mean Platelet Volume 9.9 fL (9.4-12.4); Monocytes Absolute Auto 0.6 X10*3/uL (0.1-1.2); Monocytes Percent Auto 7.1 % (2-11); Neutrophils Absolute Auto 6.3 x10*3/uL (2.0-8.3); Neutrophils Percent Auto 71.8 % (45-73); Platelet Count 236 X10*3/uL (160-400); Red Blood Count 5.32 X10*6/uL (4.60-5.80); Red Cell Distribution Width 13.5 % (11.0-16.0); White Blood Count 8.8 X10*3/uL (4.8-10.8)
[2024-06-02 23:59] LABS: Alanine Aminotransferase 28 U/L (0-40); Albumin Level 4.3 g/dL (3.5-5.0); Alkaline Phosphatase 98 U/L (39-117); Anion Gap 14 (12-20); Aspartate Amino Transferase 22 U/L (5-37); Bilirubin Total 1.1 mg/dL (0.0-1.0); Blood Urea Nitrogen 19 mg/dL (9-16); Calcium 9.8 mg/dL (8.4-10.2); Carbon Dioxide 28 mmol/L (22-29); Chloride 104 mmol/L (96-108); Creatinine Clr Calc Pharmacy 127.2; Estimated Glomerular Filt Rate > 60; Glucose Random 123 mg/dL (60-115); Potassium 4.7 mmol/L (3.3-5.1); Sodium 141 mmol/L (135-145); Total Protein 7.6 g/dL (6.5-8.0)
[2024-06-03 00:07] LABS: Troponin-I High Sensitivity < 2.7 ng/L (<3.5-35.0)
--- OUTSIDE RECORDS SUMMARY | 2024-06-03 00:13 | XMS_ITS | Patient Health Record ---
Author Organization [facility] Address [address] [place] [address] Care Team Providers Care Technical Support Representative Name Role Phone Humble MARTINEZ, [place] Primary Care Provider Erin Xiao Unavailable [phone] Antonio Tuttle Unavailable Unavailable Allergies Allergen (clinical [...] Problem Status W/U Status Risk Notes Problem [id number] Type 2 diabetes mellitus without complication, without long-term current use of insulin (E11.9) Active confirmed Plan Of Treatment No Information Insurance Providers Payer Name Payer Address Payer Phone Subscriber Number Group Number Insured Name Patient Relationship to Insured Coverage Start Date Coverage End Date Ever Montes [place] [address] [place] [address] [id number] Yo Rendon Self - patient is the insured Medical (General) History Medical History History ICD Code CAD (Cholesterol) Diabetes mellitus Headaches/Migraines High blood pressure Chicken pox Surgical History Surgery Date(Month/Year)
--- NOTE | 2024-06-03 00:51 | ED_ITS ---
HPI - General Adult General Chief complaint: General Medical Stated complaint: not feeling well weird Time Seen by Provider: 06/03/24 00:50 Source: patient Limitations: no limitations History of Present Illness ED Provider: Bruna Griffith PA-C HPI narrative: 54-year-old male with a history of morbid obesity, hypertension, hyperlipidemia, diabetes, anxiety, who presents with multiple complaints. Patient states he had been working at his computer all day, he developed acute onset focal pain in the left thigh that was severe. Patient developed diaphoresis, hyperventilation and tunnel vision as if he was going to pass out. This episode past, it made the patient very anxious. In addition, patient has been having pain over left scapula an upper back that radiates to left upper chest. Patient states he does perform a great deal of physical activity including heavy lifting at work. Pain worse with movement of upper extremity, torso and palpation. Related Data Home Medications ?Medication ?Instructions ?Recorded ?Confirmed magnesium oxide 500 mg PO DAILY 02/04/23 02/01/24 zinc 50 mg tablet 50 mg PO DAILY 02/04/23 02/01/24 Previous Rx's ?Medication ?Instructions ?Recorded blood sugar diagnostic (FreeStyle #100 ea 07/22/21 Lite Strips) lancets 30 gauge (BD Ultra-Fine II #100 ea 07/22/21 Lancets) blood-glucose meter (FreeStyle #1 ea 09/02/21 Lite Meter kit) lisinopril 10 mg tablet 10 mg PO DAILY 90 days #90 tabs 09/07/23 pyridoxine (vitamin B6) 100 mg 100 mg PO DAILY 90 days #90 tabs 02/29/24 tablet atorvastatin 10 mg tablet 10 mg PO BEDTIME #90 tabs 04/10/24 metformin 500 mg tablet 500 mg PO BID #180 tabs 04/10/24 azithromycin 250 mg tablet See Rx Instructions PO .COMPLEX #6 04/12/24 tabs benzonatate 200 mg capsule 200 mg PO TID PRN cough #14 caps 04/12/24 tirzepatide 7.5 mg/0.5 mL 7.5 mg (0.5 mL) subcut QWEEK 4 05/31/24 subcutaneous pen injector weeks #2 mL (Mounjaro) Allergies Allergy/AdvReac Type Severity Reaction Status Date / Time Penicillins [PENICILLINS] Allergy Intermediate UNKNOWN Verified 04/06/25 23:27 Review of Systems 2 Review of Systems: Yes all other systems are reviewed and are negative Constitutional: Constitutional: Denies fatigue and Denies fever(s) Cardiovascular: Cardiovascular: Reports chest pain and Denies dyspnea Respiratory: Respiratory: Denies cough and Denies dyspnea Gastrointestinal: Gastrointestinal: Denies abdominal pain, Denies nausea and Denies vomiting Musculoskeletal: Musculoskeletal: Reports back pain Psychiatric: Psychiatric: Reports anxiety Endocrine: Endocrine: Denies fatigue PMFSH Past Medical History Attestation statement: The following information was validated with the patient. Medical History Diabetes mellitus Pure hypercholesterolemia Benign essential hypertension Surgical History Hx of colonoscopy No pertinent past surgical history Family History Family History Mother Diabetes CHF (congestive heart failure) High blood pressure Father No problems noted. Other Substance abuse Social History Social History Household Members: Family Housing: House Do you presently have visiting nurse or other home services: No Alcohol intake: former Patient Tobacco Use Status: Former Tobacco user Tobacco use type: Cigarette Smoked in Last 30 Days: No e-Cigarette/Vaping Use: Never Used Second Hand Smoke Exposure: Yes Use of substances other than those prescribed or required for medical reasons: No Advance Directives: No Advance Directives Information Provided: Yes Do you have a plan to hurt others: No Plan service: No Current occupational status: employed Current occupation: [employer] Cognitive needs: No Hearing needs: No Vision needs: Yes Physical Exam ED Vital Signs: Vital Signs - 24 hr 06/02/24 23:21 06/03/24 02:07 Temperature 98.1 F 97.6 F Pulse Rate 88 78 Respiratory Rate 18 20 Blood Pressure 125/84 99/65 Pulse Oximetry 98 97 Oxygen Delivery Method Room Air Room Air BMI result Body Mass Index 44.0 Const Other: Alert Orientation/consciousness: patient oriented x3 Chest Other: Pain elicited with palpation of upper left anterior chest wall and bicipital groove Resp Effort & Inspection: normal respiratory effort Cardio Other: Normal peripheral perfusion Back/Spine/Pelvis Other: Pain elicited with palpation over left scapula and over left trapezius muscle Skin Other: Warm dry no rash Neuro General: patient oriented x3, gait normal, no focal motor deficits and CN's II- XI intact bilaterally Extrem Other: Pain over bicipital groove Psych Other: Cooperative, anxious Medical Decision Making Medical Decision Making MDM Narrative: 54-year-old male with a history of morbid obesity, hypertension, hyperlipidemia, diabetes, anxiety, who presents with multiple complaints. Patient states he had been working at his computer all day, he developed acute onset focal pain in the left thigh that was severe. Patient developed diaphoresis, hyperventilation and tunnel vision as if he was going to pass out. This episode past, it made the patient very anxious. In addition, patient has been having pain over left scapula an upper back that radiates to left upper chest. Patient states he does perform a great deal of physical activity including heavy lifting at work. Pain worse with movement of upper extremity, torso and palpation. Problem: Hypertension, hyperlipidemia, diabetes, age, anxiety History: Per patient I have considered the following differential diagnoses: Chest wall strain, vasovagal near-syncope, panic attack, ACS, muscle cramp, musculoskeletal strain Plan: ACS was considered the patient has a numerous risk factors for coronary artery disease, screening labs including a troponin EKG were obtained. This is not ACS. Patient was having back pain that radiates anteriorly, he has a mechanism of injury. The pain is also reproducible with movement and palpation. In regard to the patient's near syncopal episode, I do feel he had a vasovagal reaction. Sounds as if the patient had a muscle cramp that was extremely painful, which caused him to vagal. The patient was extremely anxious, he is perseverating over the chest discomfort. After a lengthy conversation, the patient was reassured, and will continue to follow up with his primary care provider. I have independently reviewed the following tests: Labs: No leukocytosis, not anemic, no electrolyte abnormality troponin negative EKG: Normal sinus rhythm, rate 83, no ischemic changes no ectopy QTC 401 Lab Data 06/02/24 23:41 06/02/24 23:41 Labs: Lab Results 06/02/24 Range/Units 23:41 WBC 8.8 (4.8-10.8) X10*3/uL RBC 5.32 (4.60-5.80) X10*6/uL Hgb 15.7 D (14.0-18.0) g/dl Hct 45.5 (42.0-52.0) % MCV 85.5 (80.0-98.0) fL MCH 29.5 (27.0-33.0) pg MCHC 34.5 (31.0-36.0) g/dl RDW 13.5 (11.0-16.0) % Plt Count 236 (160-400) X10*3/uL MPV 9.9 (9.4-12.4) fL Immature Gran % (Auto) 0.3 (0.0-0.4) % Neut % (Auto) 71.8 (45-73) % Lymph % (Auto) 19.4 L (20-40) % [place] % (Auto) 7.1 (2-11) % Eos % (Auto) 1.1 (0-4) % Baso % (Auto) 0.3 (0-2) % Lymph # (Auto) 1.7 (1.2-4.9) X10*3/uL [place] # (Auto) 0.6 (0.1-1.2) X10*3/uL Eos # (Auto) 0.1 (0.0-0.4) X10*3/uL Baso # (Auto) 0.0 (0.0-0.2) X10*3/uL Abs Immat Gran (auto) 0.03 (0.00-0.03) X10*3/uL Absolute Neuts (auto) 6.3 (2.0-8.3) x10*3/uL Absolute Nucleated RBC 0.000 (0.0-0.012) X10*3/uL Nucleated RBC % (auto) 0.0 (0.0-0.2) /100WBC Sodium 141 (135-145) mmol/L Potassium 4.7 (3.3-5.1) mmol/L Chloride 104 (96-108) mmol/L Carbon Dioxide 28 (22-29) mmol/L Anion Gap 14 (12-20) BUN 19 H (9-16) mg/dL Creatinine 0.95 (0.5-1.4) mg/dL Estim Creat Clear Calc 127.2 Estimated GFR > 60 Random Glucose 123 H (60-115) mg/dL Calcium 9.8 (8.4-10.2) mg/dL Total Bilirubin 1.1 H (0.0-1.0) mg/dL AST 22 (5-37) U/L ALT 28 (0-40) U/L Alkaline Phosphatase 98 (39-117) U/L Troponin I High Sens < 2.7 (<3.5-35.0) ng/L Total Protein 7.6 (6.5-8.0) g/dL Albumin 4.3 (3.5-5.0) g/dL Discharge Plan Discharge Clinical Impression: Chest wall pain, Vaso-vagal reaction, Anxiety Patient Disposition: Home, Self-Care Instructions: Near Syncope (ED), Anxiety (ED), Chest Wall Pain (ED) Additional Instructions: All of your screening labs including a cardiac enzyme were normal. There were no concerning changes on your EKG. Your chest discomfort is consistent with chest wall pain. See home care instructions. In regard to the episode that you had following the acute severe pain in your thigh, you had a vasovagal episode. See home care instructions. I am providing you with a list of outpatient providers if you choose to initiate therapy for your anxiety. Continue to follow up with your primary care provider as needed. Prescriptions: No Action (DME) FreeStyle Lite Strips Strip See Rx Instructions .Route Qty: 100 0RF Rx Instructions: Test Daily (DME) lancets [BD Ultra-Fine II Lancets] 30 gauge misc See Rx Instructions .Route Qty: 100 0RF Rx Instructions: Test Daily (DME) blood-glucose meter [FreeStyle Lite Meter] Kit See Rx Instructions .Route Qty: 1 0RF Rx Instructions: Test Daily lisinopril 10 mg tablet 10 mg PO DAILY 90 Days Qty: 90 5RF pyridoxine (vitamin B6) 100 mg tablet 100 mg PO DAILY 90 Days Qty: 90 1RF metformin 500 mg tablet 500 mg PO BID Qty: 180 8RF atorvastatin 10 mg tablet 10 mg PO BEDTIME Qty: 90 8RF azithromycin 250 mg tablet See Rx Instructions PO .COMPLEX Qty: 6 0RF Rx Instructions: For 250 mg dose pack: take 500 mg today (day 1), then 250 mg for 4 days (days 2-5) PO Mounjaro 7.5 mg/0.5 mL pen injector 7.5 mg subcut QWEEK 28 Days Qty: 2 2RF magnesium oxide 500 mg Tablet 500 mg PO DAILY zinc 50 mg Tablet 50 mg PO DAILY benzonatate 200 mg capsule 200 mg PO TID PRN (Reason: cough) Qty: 14 0RF Stand Alone Forms: Work/School Release Interventions: ED Discharge Assessment Last Done: 06/03/24 02:07 Discharge Date/Time: 06/03/24 02:08 Print Language: Portuguese
[2024-06-03 02:07] VITALS: BP 99/65; PULSE 78; RESP 20; TEMP 36.4; O2SAT 97
== END 2024-06-03 02:08 | disposition home or self-care (01) ==
PROVIDERS: Emergency Provider Emergency Medicine; PCP Physician Assistant
DX: R07.89 Other chest pain (principal); R55 Syncope and collapse; F41.9 Anxiety disorder, unspecified; M79.605 Pain in left leg; Z79.899 Other long term (current) drug therapy; Z87.891 Personal history of nicotine dependence
CPT/HCPCS: 36415; 80053; 83036; 84484; 85025; 93005; 96127; 99284

== ENCOUNTER → 2024-06-02 23:28 | Outpatient (BNV) | payer BC, SELFPAY | PROVIDERS: Emergency Provider Emergency Medicine; PCP Physician Assistant; Visit Provider Internal Medicine Cardiovascular Disease | DX: R07.9 Chest pain, unspecified (principal) | CPT/HCPCS: 93010 ==

== ENCOUNTER 2024-06-03 14:26 | Outpatient (AMB) | payer BC, SELFPAY ==
--- NOTE | 2024-06-03 14:46 | A.OFFPC_ITS ---
Vital Signs 06/03/24 14:47 Height 5 ft 11 in Weight 316 lb 6 oz BMI 44.1 BP 106/86 Blood Pressure Location Lt brachial Position Sitting Pulse 108 H Pulse Source Pulse Oximeter Temp 97.5 F Temp Source Temporal Artery Scan Pulse Oximetry (%) 97 Oxygen Delivery Method Room Air Intake Visit Reasons: TCM/[facility]-dizzy/chest pain /06/02/24 Allergies Penicillins [PENICILLINS] Allergy (Intermediate, Verified 06/03/24 15:16) UNKNOWN Medication List - Last Reconciled 06/03/24 by Antonio Tuttle PA-C atorvastatin 10 mg PO BEDTIME benzonatate 200 mg PO TID PRN blood sugar diagnostic (FreeStyle Lite Strips) Test Daily blood-glucose meter (FreeStyle Lite Meter kit) Test Daily lancets ([employer] Ultra-Fine II Lancets) Test Daily lisinopril 10 mg PO DAILY 90 days magnesium oxide 500 mg PO DAILY metformin 500 mg PO BID pyridoxine (vitamin B6) 100 mg PO DAILY 90 days tirzepatide (Mounjaro) 7.5 mg (0.5 mL) subcut QWEEK 4 weeks zinc 50 mg PO DAILY Tobacco use date assessed: 02/01/24 Dental Screening Dental Screen Date: 02/01/24 HPI TCM/[facility]MC-dizzy/chest pain /06/02/24 HPI Details Patient is a 54-year-old male here today for an ER follow-up visit. Recently seen at the ER yesterday night for an acute episode of diaphoresis, increased anxiety was preempted by a sharp pain in his anterior left thigh. His evaluation at the ER was essentially stable without any elevation in his troponin, EKG normal and viral testing negative. Have noted low blood pressure readings today and at his ER evaluation. Will reduce his lisinopril dose to 5 mg as he may be having hypotensive symptoms. He does report having chronic low back pain to which he relates to physical exertion at his work. [facility] Medical History Diabetes mellitus Pure hypercholesterolemia Benign essential hypertension Surgical History Hx of colonoscopy No pertinent past surgical history Family History Mother Diabetes CHF (congestive heart failure) High blood pressure Father No problems noted. Other Substance abuse Social History Household Members: Family Housing: House Do you presently have visiting nurse or other home services: No Alcohol intake: former Patient Tobacco Use Status: Former Tobacco user Tobacco use type: Cigarette e-Cigarette/Vaping Use: Never Used Second Hand Smoke Exposure: Yes service: No Current occupational status: employed Current occupation: [employer] Cognitive needs: No Hearing needs: No Vision needs: Yes Questionnaire PHQ-9 Over the last 2 weeks, how often have you been bothered by any of the following problems? 1. Little interest or pleasure in doing things: not at all 2. Feeling down, depressed, or hopeless: not at all 3. Trouble falling or staying asleep, or sleeping too much: not at all 4. Feeling tired or having little energy: not at all 5. Poor appetite or overeating: not at all 6. Feeling bad about yourself - or that you are a failure or have let yourself or your family down: not at all 7. Trouble concentrating on things, such as reading the newspaper or watching television: not at all 8. Moving or speaking so slowly that other people could have noticed. Or the opposite - being so fidgety or restless that you have been moving around a lot more than usual: not at all 9. Thoughts that you would be better off or of hurting yourself in some way: not at all Total score: 0 Depression Screening Interpretation: Negative Depression Screening Done: Yes 29228 - PHQ-9 Billing: Yes Source: Developed by Drs. Josse Ortiz, Eda Patrick, Danilo Dumas and colleagues, with an educational alok from [employer]. Thrive Questionnaire Date Thrive assessed: 06/03/24 I am a: Patient What is your living situation today?: I have a steady place to live Within the past 12 months, did the food you bought not last and you didn't have the money to get more?: Never true Within the past 12 months, did you worry whether your food would run out before you got money to buy more?: Never true Do you have trouble paying for medicines?: No Do you have trouble getting transportation to medical appointments?: No Do you have trouble paying your heating and electricity bill?: No Do you have trouble taking care of your child, family member or friend?: No Do you have trouble with day-to-day activities such as bathing, preparing meals, shopping, managing finances, etc.?: No Are you currently unemployed and looking for a job?: No Are you interested in more education?: No Please select the resources that you would like help with: None Currently or been in a relationship where the following occur: No concerns reported THRIVE Score: 0 AUDIT C Alcohol Use Questionnaire (AUDIT-C) 1. How often do you have a drink containing alcohol?: Never 2. How many drinks containing alcohol do you have on a typical day when you are drinking?: 1 or 2 3. How often do you have six or more drinks on one occasion?: Never Total Score: 0 YAMILE-7 AMB Questionnaire YAMILE-7 Date YAMILE - 7 assessed: 06/03/24 Feeling nervous, anxious, or on edge: 0 = Not at all Not being able to stop or control worryin = Not at all Worrying too much about different things: 0 = Not at all Trouble relaxin = Not at all Being so restless that it is hard to sit still: 0 = Not at all Becoming easily annoyed or irritable: 0 = Not at all Feeling afraid as if something awful might happen: 0 = Not at all Total YAMILE-7 score (0-4 normal; 5-9 mild; 10-14 moderate; 15-21 severe): 0 Source: Developed by Drs. Josse Ortiz, Eda Patrick, Danilo Dumas and colleagues, with an educational alok from [employer]. YAMILE-7 Assessment Billing YAMILE-7 Assessment Tool: YAMILE-7 Assessment 09240 Review of Systems Const Denies headache(s) Eyes Denies loss of vision ENT Denies vertigo, Denies dizziness, Denies headache(s) and Denies sore throat Card Denies chest pain, Denies leg edema and Denies lightheadedness Resp Denies cough, Denies hemoptysis and Denies wheezing GI Denies abdominal pain, Denies melena, Denies constipation, Denies diarrhea and Denies vomiting Denies dysuria, Denies urinary frequency and Denies urinary urgency Musc Denies arthralgias, Denies joint swelling, Denies numbness and Denies tingling Neuro Denies Abnormal speech present, Denies behavioral changes, Denies vertigo, Denies dizziness, Denies headache(s), Denies loss of vision, Denies memory loss, Denies numbness and Denies tingling Psych Denies anxiety, Denies behavioral changes, Denies depression, Denies memory loss and Denies panic attacks Mohan/Lymph Denies easy bleeding and Denies easy bruising Aller/Immun Denies wheezing Physical exam (Primary Care) Vital Signs: Last Vital Signs Temp 97.5 F 06/03/24 14:47 Pulse 108 H 06/03/24 14:47 BP 106/86 06/03/24 14:47 Pulse Ox 97 06/03/24 14:47 Oxygen Delivery Method Room Air 06/03/24 14:47 BMI result Body Mass Index 44.1 Tobacco/Smoking Status: Tobacco use Status Tobacco use date assessed 02/01/24 06/03/24 14:49 Patient Tobacco Use Status Former Tobacco user 06/03/24 14:49 Tobacco use type Cigarette 06/03/24 14:49 e-Cigarette/Vaping Use Never Used 06/03/24 14:49 PHQ-9: PHQ-9 Score PHQ-9: Total score 0 06/04/24 07:41 Depression Screening Interpretation: Negative Thrive Assessment: Date of Thrive Assessment Date Thrive assessed 06/03/24 06/03/24 14:49 Currently or been in a relationship where the following occur: No concerns reported Const General: healthy appearing, no acute distress, alert and awake Nutritional Appearance: well nourished Orientation/consciousness: oriented to person, oriented to place and oriented to time [facility] Ears: TM's normal bilaterally General nose exam: Normal nasal mucous membranes and turbinates present Eyes Conjunctivae: conjunctivae normal Sclerae: sclerae normal Pupils: Equal, round and reactive pupils present Neck Neck: Yes no lymphadenopathy and Yes no JVD Thyroid: Thyroid normal Carotids: no bruits Resp Effort & Inspection: normal respiratory effort and not tachypneic Auscultation: no crackles, no rales, no rhonchi and no wheezes Cardio Rate: regular rate Rhythm: regular rhythm Heart sounds: no murmurs and normal S1 and S2 GI Palpation (GI): Soft to palpation, nontender, no hepatomegaly and no splenomegaly Auscultation: normal bowel sounds Skin General skin exam: no rashes or lesions noted and dry skin Neuro General: oriented to person, oriented to place and oriented to time Cranial nerves: Yes Equal, round and reactive pupils present Speech: No Abnormal speech present Gait exam (Neuro): Normal gait present Motor exam (neuro): no tremor noted Extrem Right upper extremity: full ROM Left upper extremity: full ROM Right lower extremity: full ROM; no edema Left lower extremity: full ROM; no edema Psych Mental Status: mental status grossly normal Speech and movement: Normal speech and movement present Affect: normal affect Attitude: cooperative Thought process: Normal thought process present Results AMB Hemoglobin A1c AMB Hemoglobin A1c 5.8 % Last Edit by ISIDRA Ortiz on 06/03/24 15:33 Results Reviewed Results Reviewed: Laboratory Last Values Hgb A1c (Clinic) 5.8 % (4.0-6.0) 06/03/24 14:52 Coding Level of Care Code Est Pt Level 4 (81709) Diagnoses Hypotension due to drugs I95.2 Hypotension type: hypotension due to drug Lumbar spine pain M54.50 Panic F41.0 Additional Codes YAMILE-7 Assessment Billing - YAMILE-7 Assessment Tool: YAMILE-7 Assessment 08188 ([id number]) PHQ-9 - 07139 - PHQ-9 Billing: Yes ([id number]) Assessment & Plan Assessment & Plan (1) Hypotension: Code(s): I95.9 - Hypotension, unspecified Category: Medical Qualifiers: Hypotension type: hypotension due to drug Qualified Code(s): I95.2 - Hypotension due to drugs Plan: We have noted low blood pressure readings most recent evaluations. Will reduce his lisinopril to help regulate BP . Will reduce his lisinopril to 5 mg daily. (2) Lumbar spine pain: Code(s): M54.50 - Low back pain, unspecified Category: Medical Plan: Patient does report some chronic lower back pain. Recently had some numbness and sharp pain in his left anterior thigh that prompted some more constitutional symptoms. Due to the unilateral lower extremity numbness and pain will evaluate his lower back. Would eventually likely need an MRI to evaluate for a disc issue. He attributes a lot of his back issues to physical exertion at work.. We did discuss physical therapy though he like to hold off on this for now. (3) Panic: Code(s): F41.0 - Panic disorder [episodic paroxysmal anxiety] Category: Medical Plan: Patient does seem to be suffering with a panic disorder. Will supply patient with low-dose lorazepam to use on an emergency basis only. Orders: Orders AMB Hemoglobin A1c 06/03/24 E11.65 - Type 2 diabetes mellitus with hyperglycemia XR lumbar spine 2-3V 06/03/24 M54.50 - Low back pain, unspecified Medications: New lorazepam 0.5 mg PO DAILY 5 days PRN 5 tabs 0RF anxiety F41.9 - Anxiety disorder, unspecified lorazepam 0.5 mg PO DAILY PRN 5 tabs 0RF anxiety 5 days F41.9 - Anxiety disorder, unspecified lisinopril 5 mg PO DAILY 90 tabs 1RF 90 days I10 - Essential (primary) hypertension Discontinued lisinopril Discontinued Reason: Doctor's Order 10 mg PO DAILY 90 days 90 tabs 5RF I10 - Essential (primary) hypertension
[2024-06-03 14:47] VITALS: BP 106/86; PULSE 108; TEMP 36.4; O2SAT 97; BMI 44.1
== END 2024-06-03 15:34 | disposition home or self-care (01) ==
LOC: HO.HMCH 14:27
PROVIDERS: PCP Physician Assistant; Visit Provider Physician Assistant
DX: I95.2 Hypotension due to drugs (principal); M54.50 Low back pain, unspecified; F41.0 Panic disorder [episodic paroxysmal anxiety]

== ENCOUNTER 2024-06-13 08:27 | Outpatient (AMB) | payer BC, SELFPAY ==
--- NOTE | 2024-06-13 08:43 | AM.OFFWIN_ITS ---
Intake Vital Signs 06/13/24 08:44 Weight 317 lb BP 120/80 Blood Pressure Location Lt brachial Position Sitting Pulse 110 H Pulse Source Pulse Oximeter Pulse Oximetry (%) 99 Oxygen Delivery Method Room Air Intake Visit Reasons: EP Lower back of neck pain Intake Note: Patient here for lump on neck that has been present since monday. Patient Tobacco Use Status: Former Tobacco user Allergies Penicillins [PENICILLINS] Allergy (Intermediate, Verified 06/13/24 08:43) UNKNOWN Do you need a note to return to daycare/school/sports/work: No HPI HPI Comments History of Present Illness Details History of Present Illness - The patient is a 54-year-old male pres enting with a recurrent neck abscess. - The onset of the original abscess was approximately five to six months ago. - Previously resolved with doxycycline, the current presentation shows induration. - The recurrent abscess is localized on the back of the neck and is painful, in the crease of his neck. - Potentially due to ingrown hairs, comp licating factors may be family history. Physical Exam General: Cooperative, healthy appearing, comfortable, no acute distress and well developed Orientation: Patient oriented x3 Limitations: No limitations Head: Normal to inspection Ears: Hearing grossly normal bilaterally Nose: Normal External nose present Face and sinus: Normal facial exam Eyes: Appearance normal, both eyes and all related structures Neck: Indurated abscess on posterior neck, in crease, 1.5cm x0.75cm oblong Yes full ROM Respiratory: Normal respiratory effort and able to speak in complete sentences. Skin: No rashes or lesions noted Neuro: Patient oriented x3 Extremities: Normal to inspection [facility] Medical History Diabetes mellitus Pure hypercholesterolemia Benign essential hypertension Surgical History Hx of colonoscopy No pertinent past surgical history Family History Mother Diabetes CHF (congestive heart failure) High blood pressure Father No problems noted. Other Substance abuse Social History Household Members: Family Housing: House Do you presently have visiting nurse or other home services: No Alcohol intake: former Patient Tobacco Use Status: Former Tobacco user Tobacco use type: Cigarette e-Cigarette/Vaping Use: Never Used Second Hand Smoke Exposure: Yes service: No Current occupational status: employed Current occupation: [employer] Cognitive needs: No Hearing needs: No Vision needs: Yes Review of Systems Const All systems reviewed & are unremarkable except as noted in HPI and below Physical Exam Vital Signs: Last Vital Signs Pulse 110 H 06/13/24 08:44 BP 120/80 06/13/24 08:44 Pulse Ox 99 06/13/24 08:44 Oxygen Delivery Method Room Air 06/13/24 08:44 Assessment & Plan Assessment & Plan (1) Abscess: Code(s): L02.91 - Cutaneous abscess, unspecified Plan: The indurated neck abscess ( unable to drain) will be treated with antibiotics, specifically doxycycline, which previously resolved the condition effectively. The patient is advised to use warm compresses for symptomatic relief and to maintain short and clean neck hair to prevent future occurrences. Monitoring for symptoms of non-resolution will guide potential further interventions. Patient was informed and verbally consented to the use of an ambient scribe for clinic note documentation during this visit. Medications: New doxycycline hyclate 100 mg PO BID 14 tabs 0RF Coding Level of Care Code Est Pt Level 3 (25802) Diagnoses Abscess L02.91
[2024-06-13 08:44] VITALS: BP 120/80; PULSE 110; O2SAT 99
== END 2024-06-13 09:48 | disposition home or self-care (01) ==
PROVIDERS: PCP Physician Assistant; Visit Provider Physician Assistant
DX: L02.91 Cutaneous abscess, unspecified (principal)

== ENCOUNTER → 2024-06-13 08:27 | Outpatient (BNVA) | payer BC, SELFPAY | PROVIDERS: PCP Physician Assistant; Visit Provider Physician Assistant | DX: Z13.89 Encounter for screening for other disorder (principal) ==

== ENCOUNTER 2024-07-30 06:08 | Outpatient (REF) | payer BC, SELFPAY ==
--- OUTSIDE RECORDS SUMMARY | 2024-07-30 06:10 | XMS_ITS | Patient Health Record ---
[facility] Address [address] [place] [address] Care Team Providers Care Prefitter Doors Name Role Phone Humble MARTINEZ, [place] Primary Care Provider Erin Xiao Unavailable [phone] Antonio Tuttle Unavailable Unavailable Allergies Allergen (clinical [...] Problem Status W/U Status Risk Notes Problem [id number] Type 2 diabetes mellitus without complication, without long-term current use of insulin (E11.9) Active confirmed Plan Of Treatment No Information Insurance Providers Payer Name Payer Address Payer Phone Subscriber Number Group Number Insured Name Patient Relationship to Insured Coverage Start Date Coverage End Date Ever Montes [place] [address] [place] [address] [id number] Yo Rendon Self - patient is the insured Medical (General) History Medical History History ICD Code CAD (Cholesterol) Diabetes mellitus Headaches/Migraines High blood pressure Chicken pox Surgical History Surgery Date(Month/Year)
[2024-07-30 07:27] LABS: Hematocrit 45.6 % (42.0-52.0); Hemoglobin 15.2 g/dl (14.0-18.0); Mean Corpuscular HGB Conc 33.3 g/dl (31.0-36.0); Mean Corpuscular Hemoglobin 28.9 pg (27.0-33.0); Mean Corpuscular Volume 86.7 fL (80.0-98.0); Mean Platelet Volume 10.2 fL (9.4-12.4); Platelet Count 247 X10*3/uL (160-400); Red Blood Count 5.26 X10*6/uL (4.60-5.80); Red Cell Distribution Width 13.4 % (11.0-16.0); White Blood Count 7.2 X10*3/uL (4.8-10.8)
[2024-07-30 07:49] LABS: Alanine Aminotransferase 36 U/L (0-40); Albumin Level 4.5 g/dL (3.5-5.0); Alkaline Phosphatase 88 U/L (39-117); Anion Gap 11 (12-20); Aspartate Amino Transferase 30 U/L (5-37); Bilirubin Total 1.3 mg/dL (0.0-1.0); Blood Urea Nitrogen 16 mg/dL (9-16); Calcium 9.5 mg/dL (8.4-10.2); Carbon Dioxide 29 mmol/L (22-29); Chloride 106 mmol/L (96-108); Cholesterol 131 mg/dL (<200); Estimated Glomerular Filt Rate > 60; Glucose Fasting 93 mg/dL (60-99); HDL Cholesterol 39 mg/dL (>40); LDL Cholesterol Calculated 76 mg/dL (<100); Potassium 4.6 mmol/L (3.3-5.1); Sodium 141 mmol/L (135-145); Total Protein 7.6 g/dL (6.5-8.0); Triglycerides 83 mg/dL (<150)
[2024-07-30 08:12] LABS: Creatinine Urine 126.04 mg/dL; Microalbumin Urine < 5.0 mg/L
[2024-07-30 08:16] LABS: Prostate Specific Antigen Scr 0.25 ng/mL (<0.05-4.0)
== END 2024-07-30 06:09 | disposition home or self-care (01) ==
LOC: HO.LAB 06:08
PROVIDERS: PCP Physician Assistant; Visit Provider Physician Assistant
DX: Z12.5 Encounter for screening for malignant neoplasm of prostate (principal); E78.00 Pure hypercholesterolemia, unspecified; I10 Essential (primary) hypertension
CPT/HCPCS: 36415; 80053; 80061; 82043; 82570; 84153; 85027

== ENCOUNTER 2024-08-01 08:47 | Outpatient (AMB) | payer BC, SELFPAY ==
--- NOTE | 2024-08-01 09:11 | A.OFFPC_ITS ---
Vital Signs 08/01/24 09:12 Height 5 ft 11 in Weight 313 lb 12.8 oz BMI 43.8 BP 114/76 Blood Pressure Location Lt brachial Position Sitting Respiration 18 Pulse 85 Pulse Source Pulse Oximeter Temp 97.3 F Temp Source Temporal Artery Scan Pulse Oximetry (%) 97 Oxygen Delivery Method Room Air Intake Visit Reasons: Annual Exam Guidance Counselor Required: No Accompanied by: Self / Same As Patient Allergies Penicillins [PENICILLINS] Allergy (Intermediate, Verified 08/01/24 09:43) UNKNOWN Medication List - Last Reconciled 08/01/24 by Antonio Tuttle PA-C atorvastatin 10 mg PO BEDTIME blood sugar diagnostic (FreeStyle Lite Strips) Test Daily blood-glucose meter (FreeStyle Lite Meter kit) Test Daily lancets (BD Ultra-Fine II Lancets) Test Daily lisinopril 5 mg PO DAILY 90 days lorazepam 0.5 mg PO DAILY PRN 5 days magnesium oxide 500 mg PO DAILY metformin 500 mg PO BID pyridoxine (vitamin B6) 100 mg PO DAILY 90 days tirzepatide (Mounjaro) 7.5 mg (0.5 mL) subcut QWEEK 4 weeks zinc 50 mg PO DAILY Tobacco use date assessed: 08/01/24 Dental Screening Dental Screen Date: 08/01/24 Did you have a dental visit in the last 12 months?: Yes Did you have a dental problem in the last 6 months where you did not have access to dental care?: No Was dental information given to patient?: Patient has dentist HPI Annual Exam HPI Details Patient is a 54-year-old male here today for follow-up visit. Patient has a past medical history significant for type 2 diabetes, hyperlipidemia, hypertension, nephrolithiasis, morbid obesity. Concern--> He also reports a recurrent painful cyst on his neck, which has been troublesome, especially impacting his ability to perform daily tasks. Treated previously with antibiotics, the cyst tends to recur .. Type 2 diabetes:? Patient currently on it alternative GLP 1 (Mounjaro). Today's A1c acceptable . Continues on metformin 500 b.i.d andGLP. . Class 3 obesity: Has lost weight since last office visit, reports low appetite secondary to GLP 1. Hypertension:? Blood pressure today in office acceptable.? Will continue him on his current dose of lisinopril.? He denies any headaches , chest discomforts or dizziness. . Hyperlipidemia:? He does report reducing his atorvastatin to half tablet 5 mg daily in his side effects of back pain have resolved.? Most recent LDL above 100.? Will recheck fasting lipid panel fullness above 100 will consider increasing potency of statin. Colonoscopy: Recently 2022 had colonoscopy, found to have tubular adenoma polyp repeat 5 years Vaccines: Up-to-date with tetanus vaccine and COVID vaccine, considering Shingrex- declines pneumonia vaccine ON LICENSE OF [facility] Medical History Diabetes mellitus Pure hypercholesterolemia Benign essential hypertension Surgical History Hx of colonoscopy No pertinent past surgical history Family History Mother Diabetes CHF (congestive heart failure) High blood pressure Father No problems noted. Other Substance abuse Social History Household Members: Family Housing: House Do you presently have visiting nurse or other home services: No Alcohol intake: former Patient Tobacco Use Status: Former Tobacco user Tobacco use type: Cigarette e-Cigarette/Vaping Use: Never Used Second Hand Smoke Exposure: Yes service: No Current occupational status: employed Current occupation: [employer] Cognitive needs: No Hearing needs: No Vision needs: Yes (Glasses) Questionnaire PHQ-9 Over the last 2 weeks, how often have you been bothered by any of the following problems? 1. Little interest or pleasure in doing things: not at all 2. Feeling down, depressed, or hopeless: not at all 3. Trouble falling or staying asleep, or sleeping too much: not at all 4. Feeling tired or having little energy: not at all 5. Poor appetite or overeating: not at all 6. Feeling bad about yourself - or that you are a failure or have let yourself or your family down: not at all 7. Trouble concentrating on things, such as reading the newspaper or watching television: not at all 8. Moving or speaking so slowly that other people could have noticed. Or the opposite - being so fidgety or restless that you have been moving around a lot more than usual: not at all 9. Thoughts that you would be better off or of hurting yourself in some way: not at all Total score: 0 Depression Screening Interpretation: Negative Depression Screening Done: Yes 27871 - PHQ-9 Billing: Yes Source: Developed by Drs. Josse Ortiz, Eda Patrick, Danilo Dumas and colleagues, with an educational alok from [employer]. Thrive Questionnaire Date Thrive assessed: 08/01/24 I am a: Patient What is your living situation today?: I have a steady place to live Within the past 12 months, did the food you bought not last and you didn't have the money to get more?: Never true Within the past 12 months, did you worry whether your food would run out before you got money to buy more?: Never true Do you have trouble paying for medicines?: No Do you have trouble getting transportation to medical appointments?: No Do you have trouble paying your heating and electricity bill?: No Do you have trouble taking care of your child, family member or friend?: No Do you have trouble with day-to-day activities such as bathing, preparing meals, shopping, managing finances, etc.?: No Are you currently unemployed and looking for a job?: No Are you interested in more education?: No Please select the resources that you would like help with: None Currently or been in a relationship where the following occur: No concerns reported THRIVE Score: 0 AUDIT C Alcohol Use Questionnaire (AUDIT-C) 1. How often do you have a drink containing alcohol?: Never 2. How many drinks containing alcohol do you have on a typical day when you are drinking?: 1 or 2 3. How often do you have six or more drinks on one occasion?: Never Total Score: 0 Score Reviewed/Action Taken: No YAMILE-7 AMB Questionnaire YAMILE-7 Date YAMILE - 7 assessed: 08/01/24 Feeling nervous, anxious, or on edge: 1 = Several days Not being able to stop or control worryin = Several days Worrying too much about different things: 0 = Not at all Trouble relaxin = Not at all Being so restless that it is hard to sit still: 0 = Not at all Becoming easily annoyed or irritable: 1 = Several days Feeling afraid as if something awful might happen: 0 = Not at all Total YAMILE-7 score (0-4 normal; 5-9 mild; 10-14 moderate; 15-21 severe): 3 Source: Developed by Drs. Josse Ortiz, Eda Patrick, Danilo Dumas and colleagues, with an educational alok from [employer]. YAMILE-7 Assessment Billing YAMILE-7 Assessment Tool: YAMILE-7 Assessment 23344 Review of Systems Const Denies body aches, Denies chills, Denies excessive sweating, Denies fatigue, Den ies fever(s) and Denies headache(s) Eyes Denies blurry vision ENT Denies dysphagia, Denies vertigo, Denies dizziness, Denies headache(s), Denies hearing loss and Denies tinnitus Card Denies chest pain, Denies chest pain with activity, Denies syncope, Denies irregular heart rhythm and Denies dyspnea Resp Denies chest congestion, Denies cough, Denies hemoptysis, Denies dyspnea and Denies wheezing GI Denies abdominal pain, Denies melena, Denies hematochezia, Denies coffee ground emesis, Denies dysphagia, Denies diarrhea, Denies nausea and Denies vomiting Denies difficulty urinating, Denies dysuria, Denies urinary frequency, Denies urinary hesitancy and Denies urinary urgency Musc Denies arthralgias, Denies limited range of motion, Denies muscle cramps and Denies muscle weakness Skin/Breast Denies rash and Denies skin ulcer Neuro Denies Abnormal speech present, Denies confusion, Denies vertigo, Denies dizziness, Denies syncope, Denies headache(s), Denies memory loss and Denies seizure-like activity Psych Denies anxiety, Denies confusion, Denies depression, Denies memory loss, Denies panic attacks and Denies paranoia Endo Denies excessive sweating, Denies fatigue, Denies flushing, Denies polydipsia and Denies polyuria Aller/Immun Denies wheezing Physical exam (Primary Care) Vital Signs: Last Vital Signs Temp 97.3 F 08/01/24 09:12 Pulse 85 08/01/24 09:12 Resp 18 08/01/24 09:12 BP 114/76 08/01/24 09:12 Pulse Ox 97 08/01/24 09:12 Oxygen Delivery Method Room Air 08/01/24 09:12 BMI result Body Mass Index 43.8 BMI Assessment/Plan discussion: High BMI High, discussed plan: lifestyle, weight reduction, dietary and physical activity Tobacco/Smoking Status: Tobacco use Status Tobacco use date assessed 08/01/24 08/01/24 09:15 Patient Tobacco Use Status Former Tobacco user 08/01/24 09:15 Tobacco use type Cigarette 08/01/24 09:15 e-Cigarette/Vaping Use Never Used 08/01/24 09:15 PHQ-9: PHQ-9 Score PHQ-9: Total score 0 08/01/24 09:46 Depression Screening Interpretation: Negative Thrive Assessment: Date of Thrive Assessment Date Thrive assessed 08/01/24 08/01/24 09:15 Currently or been in a relationship where the following occur: No concerns reported Const General: cooperative, comfortable, no acute distress, alert and awake; No confusion Orientation/consciousness: oriented to person, oriented to place, patient oriented x3 and No confusion HENMT Head: Yes normocephalic Ears: external ears normal and TM's normal bilaterally Face and sinus: No sinus tenderness Mouth: Normal oral and palatal mucosa present and tongue normal Teeth and gingiva: dentition normal and gingiva normal Throat: Yes posterior oropharynx normal, Yes tonsils normal and Yes uvula midline Eyes Conjunctivae: conjunctivae normal Sclerae: sclerae normal Pupils: Equal, round and reactive pupils present EOM: EOMs intact bilaterally Direct Ophthalmoscopy: No no photophobia Neck Neck: Yes no lymphadenopathy, No tender and Yes no JVD Thyroid: Thyroid normal Carotids: no bruits Chest Chest palpation & inspection: no tenderness Resp Effort & Inspection: normal respiratory effort, no audible wheezes, not labored and no stridor Auscultation: no crackles, no rales, no rhonchi and no wheezes Cardio Jugular venous distension: no JVD Rate: regular rate, not bradycardic and not tachycardic Rhythm: regular rhythm Bruits: no carotid bruits Peripheral pulses: Peripheral pulses 2+ throughout GI Inspection: Yes normal to inspection, No abdominal wall ecchymosis and No visible herniation Palpation (GI): Soft to palpation, nontender, no guarding, not rigid and No hepatosplenomegaly present Auscultation: normoactive bowel sounds General: Yes no CVA tenderness Back/Spine/Pelvis Back: no CVA tenderness and No back tenderness Cervical Spine: cervical ROM normal Thoracic/Lumbar Spine: thoracic and lumbar spine normal to inspection, straight leg raise negative bilaterally, No thoraco-lumbar ROM limited and No lumbar spinal tenderness Skin Lesions: no lesions Rashes: no rashes Wounds: no wounds Neuro General: oriented to person, oriented to place, patient oriented x3, CN's II-XI intact bilaterally and No confusion Cranial nerves: Yes Equal, round and reactive pupils present and Yes Normal accommodation reflex present Cognition (Neuro): normal cognition Speech: No Abnormal speech present Gait exam (Neuro): Normal gait present Motor exam (neuro): 5/5 motor strength present throughout Extrem Right upper extremity: full ROM; no cyanosis Left upper extremity: full ROM; no cyanosis Right lower extremity: no edema Left lower extremity: no edema Psych Appearance: grossly normal Mental Status: mental status grossly normal Affect: normal affect Attitude: cooperative Thought process: Normal thought process present Coding Level of Care Code Est Pt Prev Care 40-64y(30541) Diagnoses Annual physical exam Z00.00 Type 2 diabetes mellitus with hyperglycemia, without long-term current use of insulin E11.65 Diabetes mellitus complication status: with hyperglycemia Diabetes mellitus fci insulin use: without press tender long goods use Diabetes mellitus type: type 2 Pure hypercholesterolemia E78.00 Class 3 obesity E66.813 Benign essential hypertension I10 Epidermoid cyst of neck L72.0 Additional Codes YAMILE-7 Assessment Billing - YAMILE-7 Assessment Tool: YAMILE-7 Assessment 24679 ([id number]) PHQ-9 - 74201 - PHQ-9 Billing: Yes ([id number]) Assessment & Plan Assessment & Plan (1) Annual physical exam: Code(s): Z00.00 - Encounter for general adult medical examination without abnormal findings Category: Medical Plan: As per HPI (2) Diabetes mellitus: Comment: I am unable to review his most recent blood work-however he in his are informed. Reportedly his hemoglobin A1c has improved Reviewed PCP note Code(s): E11.9 - Type 2 diabetes mellitus without complications Category: Medical Qualifiers: Diabetes mellitus complication status: with hyperglycemia Diabetes mellitus fci insulin use: without press tender long goods use Diabetes mellitus type: type 2 Qualified Code(s): E11.65 - Type 2 diabetes mellitus with hyperglycemia Plan: Patient's type 2 diabetes well controlled with current antihyperglycemic medications. Most recent A1c acceptable, most recent fasting blood sugar appropriate. Goal A1c is to remain below 6.5 (3) Pure hypercholesterolemia: Code(s): E78.00 - Pure hypercholesterolemia, unspecified Category: Medical Plan: Most recent lipid panel showing good control of his total cholesterol and LDL. Has reduced his atorvastatin to 5 mg daily due to reports a back muscle pain. Goal LDL to remain below 100 (4) Class 3 obesity: Code(s): E66.813 - Obesity, class 3 Category: Medical Plan: Patient does understand his BMI is over 40 will continue working on being more physically active and adapting to better eating habits to reduce his weight. Will increase his GLP 1 dose to help with more weight loss. (5) Benign essential hypertension: Code(s): I10 - Essential (primary) hypertension Category: Medical Plan: Patient's blood pressure acceptable today in office. Will continue current dose of lisinopril with goal blood pressure to remain below 140/90 (6) Epidermoid cyst of neck: Code(s): L72.0 - Epidermal cyst Category: Medical Plan: Has had a recurring epidermal cyst over increase in his posterior neck. Will like to see general surgeon for removal of this epidermal cyst. Orders: Orders Hemoglobin A1c Today E11.65 - Type 2 diabetes mellitus with hyperglycemia Lipid Panel Today E78.00 - Pure hypercholesterolemia, unspecified Complete Blood Count no Diff Today E11.65 - Type 2 diabetes mellitus with hyperglycemia Comprehensive [place]. Panel Fast Today E11.65 - Type 2 diabetes mellitus with hyperglycemia Referrals General Surgery Referral L72.0 - Epidermal cyst Medications: New tirzepatide (Mounjaro) 10 mg (0.5 mL) subcut QWEEK 2 mL 2RF 4 weeks E11.65 - Type 2 diabetes mellitus with hyperglycemia On Hold tirzepatide (Mounjaro) Hold Comment: Doctor's Order 7.5 mg (0.5 mL) subcut QWEEK 4 weeks 2 mL 2RF E11.65 - Type 2 diabetes mellitus with hyperglycemia Patient Instructions: Goal: A1c to remain below 6.5, LDL to be below 100. Barriers: Adherence to physical activity and healthy eating habits
[2024-08-01 09:12] VITALS: BP 114/76; PULSE 85; RESP 18; TEMP 36.3; O2SAT 97; BMI 43.8
--- OUTSIDE RECORDS SUMMARY | 2024-08-01 09:18 | XMS_ITS | Patient Health Record ---
Author Organization [facility] Address [address] [place] [address] Care Team Providers Care Cctv Technician Name Role Phone Humble MARTINEZ, [place] Primary Care Provider Erin Xiao Unavailable [phone] Antonio Tuttle Unavailable Unavailable Allergies Allergen (clinical [...] Problem Status W/U Status Risk Notes Problem [id number] Type 2 diabetes mellitus without complication, without long-term current use of insulin (E11.9) Active confirmed Plan Of Treatment No Information Insurance Providers Payer Name Payer Address Payer Phone Subscriber Number Group Number Insured Name Patient Relationship to Insured Coverage Start Date Coverage End Date Ever Montes [place] [address] [place] [address] [id number] Yo Rendon Self - patient is the insured Medical (General) History Medical History History ICD Code CAD (Cholesterol) Diabetes mellitus Headaches/Migraines High blood pressure Chicken pox Surgical History Surgery Date(Month/Year)
== END 2024-08-01 10:01 | disposition home or self-care (01) ==
LOC: HO.HMCH 08:47
PROVIDERS: PCP Physician Assistant; Visit Provider Physician Assistant
DX: Z00.00 Encounter for general adult medical examination without abnormal findings (principal); E11.65 Type 2 diabetes mellitus with hyperglycemia; Z68.41 Body mass index [BMI] 40.0-44.9, adult; E66.813 Obesity, class 3; E78.00 Pure hypercholesterolemia, unspecified; I10 Essential (primary) hypertension; L72.0 Epidermal cyst

== ENCOUNTER → 2024-08-01 08:47 | Outpatient (BNVA) | payer BC, SELFPAY | PROVIDERS: PCP Physician Assistant; Visit Provider Physician Assistant | DX: Z00.00 Encounter for general adult medical examination without abnormal findings (principal); E11.65 Type 2 diabetes mellitus with hyperglycemia; I10 Essential (primary) hypertension; E78.00 Pure hypercholesterolemia, unspecified; E66.813 Obesity, class 3; L72.0 Epidermal cyst; Z68.41 Body mass index [BMI] 40.0-44.9, adult; Z87.442 Personal history of urinary calculi | CPT/HCPCS: 96127 ==

== ENCOUNTER 2024-09-03 08:09 | Outpatient (REF) | payer BC, SELFPAY ==
[2024-09-03 13:52] LABS: Resp Syncy Virus RNA Qual PCR NEGATIVE (Negative); SARS COV2 PCR INHOUSE NEGATIVE (Negative)
== END 2024-09-03 08:10 | disposition home or self-care (01) ==
LOC: HO.LNP 08:09
PROVIDERS: PCP Physician Assistant; Visit Provider Physician Assistant
DX: J06.9 Acute upper respiratory infection, unspecified (principal); R05.9 Cough, unspecified; Z87.891 Personal history of nicotine dependence; Z20.822 Contact with and (suspected) exposure to COVID-19
CPT/HCPCS: 87637

== ENCOUNTER 2024-09-03 08:09 | Outpatient (AMB) | payer BC, SELFPAY ==
[2024-09-03 08:13] VITALS: BP 100/68; PULSE 106; TEMP 36.9; O2SAT 98; BMI 43.6
--- NOTE | 2024-09-03 08:13 | AM.OFFWIN_ITS ---
Intake Vital Signs 09/03/24 08:13 Height 5 ft 11 in Weight 313 lb BMI 43.6 BP 100/68 Blood Pressure Location Lt brachial Position Sitting Pulse 106 H Pulse Source Pulse Oximeter Temp 98.5 F Temp Source Oral Pulse Oximetry (%) 98 Oxygen Delivery Method Room Air Intake Visit Reasons: EP cold symptoms 1 week Intake Note: presents with dry cough causing rib pain, sinus congestion, headache, body aches for a week Patient Tobacco Use Status: Former Tobacco user Allergies Penicillins (PENICILLINS) Allergy (Intermediate, Verified 09/03/24 08:18) UNKNOWN Do you need a note to return to daycare/school/sports/work: No HPI HPI Comments History of Present Illness Details History - The patient is a 54-year-old male pres enting with cough and congestion x 5 days. - Symptoms began with a sore throat and progressed to a cough. - Self-medication with darw-qso-yrqnggq remedies has not improved symptoms. - Associated symptoms include headache a nd rib pain from coughing, with no fever or shortness of breath. - Previous similar episode in March w ith negative flu, COVID-19, and RSV tests. 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 - Current medications include Mounjaro a nd Metformin, affecting appetite. - Advised to increase fluid intake to ma nage dehydration and elevated heart rate. Physical Exam General: Cooperative, healthy appearing, comfortable and no acute distress Orientation/consciousness: Patient oriented x3 Limitations: No limitations Head: Normal to inspection Ears: Hearing grossly normal bilaterally, external ears normal, EAC's normal and TM left with fluid, no infection, TM right normal Nose: Normal external nose present, Normal nares present and No nasal discharge present Face and sinus: Normal facial exam and maxillary sinuses tender Mouth: Normal oral and palatal mucosa present and moist mucous membranes Throat: Yes tonsils normal, Yes uvula midline. Posterior oropharynx erythema, no exudates Eyes: Appearance normal, both eyes and all related structures Neck: Normal visual inspection, full ROM Respiratory: Clear to auscultation bilaterally. Normal respiratory effort, able to speak in complete sentences, Actively coughing, no respiratory distress, not tachypneic, no tripod positioning and no use of accessory muscles Cardiovascular: tachycardic rate, Regular rhythm. Normal S1 and S2 Skin: No rashes or lesions noted Neuro: Patient oriented x3 Extremities: Normal to inspection and Yes no clubbing, cyanosis or edema PFSH Medical History Diabetes mellitus Pure hypercholesterolemia Benign essential hypertension Surgical History Hx of colonoscopy No pertinent past surgical history Family History Mother Diabetes CHF (congestive heart failure) High blood pressure Father No problems noted. Other Substance abuse Social History Household Members: Family Housing: House Do you presently have visiting nurse or other home services: No Alcohol intake: former Patient Tobacco Use Status: Former Tobacco user Tobacco use type: Cigarette e-Cigarette/Vaping Use: Never Used Second Hand Smoke Exposure: Yes service: No Current occupational status: employed Current occupation: [employer] Cognitive needs: No Hearing needs: No Vision needs: Yes (Glasses) Review of Systems Const All systems reviewed & are unremarkable except as noted in HPI and below Physical Exam Vital Signs: Last Vital Signs Temp 98.5 F 09/03/24 08:13 Pulse 115 H 09/03/24 08:13 BP 100/68 09/03/24 08:13 Pulse Ox 96 09/03/24 08:13 Oxygen Delivery Method Room Air 09/03/24 08:13 BMI result Body Mass Index 43.6 Assessment & Plan Assessment & Plan (1) URI, acute: Code(s): J06.9 - Acute upper respiratory infection, unspecified Plan: - VSS except HR tachy at 105, likely 2/2 dehydration, advised increase fluids, pt well appearing and PE remarkable for fluid left TM - Conduct flu, COVID-19, and RSV testing to rule out viral infections. - Recommend increased fluid intake to address dehydration and reduce heart rate. - Prescribe cough suppressant for nighttime use to improve sleep quality. - Suggest use of Flonase and Benadryl to manage nasal congestion and fluid in the ear. Also Jessica-D for other cold symptoms. - Advise follow-up if symptoms persist or worsen or ear becomes painful, indicating possible bacterial infection. Patient was informed and verbally consented to the use of an ambient scribe for clinic note documentation during this visit Orders: Orders SARS-CoV2/FLU/RSV Today R09.89 - Other specified symptoms and signs involving the circulatory and respiratory systems Medications: New benzonatate 200 mg PO BEDTIME PRN 10 caps 0RF cough Coding Level of Care Code Est Pt Level 3 (07920) Diagnoses URI, acute J06.9
--- OUTSIDE RECORDS SUMMARY | 2024-09-03 08:13 | XMS_ITS | Patient Health Record ---
Author Organization [facility] Address [address] [place] [address] Care Team Providers Care Universal Banker Name Role Phone Humble MARTINEZ, [place] Primary Care Provider Erin Xiao Unavailable [phone] Antonio Tuttle Unavailable Unavailable Allergies Allergen (clinical [...] Twice a day to effected areas on feet; Duration: 30 days 10/12/2021 Active Atorvastatin Calcium 10 MG 1 tablet Oral ly Once a day; Duration: 30 day(s) Active Lisinopril 5 MG 1 tablet Orally Once a day; Duration: 30 day(s) Active metFORMIN HCl 500 MG 1 tablet with a jeffrey l Orally Once a day; Duration: 30 day(s) Active Social History Tobacco Use: [...] Problem Status W/U Status Risk Notes Problem Type 2 diabetes mellitus without complication, without long-term current use of insulin (E11.9) Active confirmed Plan Of Treatment No Information Insurance Providers Payer Name Payer Address Payer Phone Subscriber Number Group Number Insured Name Patient Relationship to Insured Coverage Start Date Coverage End Date Ever [place] [address] [place] [address] [id number] Yo Rendon Self - patient is the insured Medical (General) History Medical History History ICD Code CAD (Cholesterol) Diabetes mellitus Headaches/Migraines High blood pressure Chicken pox Surgical History Surgery Date(Month/Year)
== END 2024-09-03 09:35 | disposition home or self-care (01) ==
PROVIDERS: PCP Physician Assistant; Visit Provider Physician Assistant
DX: J06.9 Acute upper respiratory infection, unspecified (principal)

== ENCOUNTER 2024-10-10 10:44 | Outpatient (AMB) | payer BC, SELFPAY ==
--- NOTE | 2024-10-10 11:00 | A.OFFVIS_ITS ---
Vital Signs 3 10/10/24 11:02 Height 5 ft 11 in Weight 308 lb BMI 43.0 BP 128/65 Blood Pressure Location Lt brachial Position Sitting Pulse 99 Intake Visit Reasons: Epidermal cyst Intake Note: Patient is seen in office for evaluation of a cyst of the neck. 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 Accompanied by: Self / Same As Patient Allergies Penicillins (PENICILLINS) Allergy (Intermediate, Verified 10/10/24 11:02) UNKNOWN Medication List - Last Reconciled 10/10/24 by Diego Shi MD atorvastatin 10 mg PO BEDTIME benzonatate 200 mg PO BEDTIME PRN blood sugar diagnostic (FreeStyle Lite Strips) Test Daily blood-glucose meter (FreeStyle Lite Meter kit) Test Daily lancets (BD Ultra-Fine II Lancets) Test Daily lisinopril 5 mg PO DAILY 90 days lorazepam 0.5 mg PO DAILY PRN 5 days magnesium oxide 500 mg PO DAILY metformin 500 mg PO BID pyridoxine (vitamin B6) 100 mg PO DAILY 90 days tirzepatide (Mounjaro) 10 mg (0.5 mL) subcut QWEEK 4 weeks tirzepatide (Mounjaro) 7.5 mg (0.5 mL) subcut QWEEK 4 weeks Held on 08/01/24. Instructions: Doctor's Order zinc 50 mg PO DAILY HPI Comments Details: 54-year-old male patient presenting for evaluation of a previously infected sebaceous cyst of the posterior neck. He has had several recurrent infections for which he sought attention at the walk-in clinic. He was initially given antibiotics in the cyst improved however within a month the cyst returned and subsequently broke open spontaneously. Since this time he has had recurrent episodes of pain, swelling and discharge. Currently he feels the cyst is much smaller and now causing as much discomfort but is concerned that it may come back. He denies any previous surgery in this location. He does report his sister has a similar skin condition and develops frequent infected cyst. [facility] Medical History Diabetes mellitus Pure hypercholesterolemia Benign essential hypertension Surgical History Hx of colonoscopy No pertinent past surgical history Family History Mother Diabetes CHF (congestive heart failure) High blood pressure Father No problems noted. Other Substance abuse Social History Household Members: Family Housing: House Do you presently have visiting nurse or other home services: No Alcohol intake: former Patient Tobacco Use Status: Former Tobacco user Tobacco use type: Cigarette e-Cigarette/Vaping Use: Never Used Second Hand Smoke Exposure: Yes service: No Current occupational status: employed Current occupation: [employer] Cognitive needs: No Hearing needs: No Vision needs: Yes (Glasses) Review of Systems Const All systems reviewed & are unremarkable except as noted in HPI and below Physical Exam Vital Signs: Last Vital Signs Pulse 99 10/10/24 11:02 BP 128/65 10/10/24 11:02 BMI result Body Mass Index 43.0 Const General: cooperative and no acute distress Nutritional Appearance: well nourished Orientation/consciousness: patient oriented x3 Limitations: no limitations HEENT Head: Yes normocephalic and Yes atraumatic Ears: hearing grossly normal bilaterally Neck Other: Area of redness within the crease of the posterior neck with evidence of a previous infection to the left of midline. Cyst measuring approximately 1.5 cm is noted. Neck images: 2 1. Cyst with increase to the left of midline, 1.5 cm diameter. Resp Effort & Inspection: normal respiratory effort, no audible wheezes, no cough and no respiratory distress Cardio Jugular venous distension: no JVD GI Inspection: Yes normal to inspection Skin Other: Warm, dry, no rash Neuro General: patient oriented x3 Extrem General: Yes no clubbing, cyanosis or edema Assessment & Plan Assessment & Plan (1) Abscess: Code(s): L02.91 - Cutaneous abscess, unspecified Category: Medical (2) Epidermal inclusion cyst: Code(s): L72.0 - Epidermal cyst Category: Medical Plan 54-year-old male patient with a prior history of an infected epidermal inclusion cyst of the posterior neck with several recurrences presenting now for possible excision of this offending cyst. On examination he has a 1.5 cm epidermal inclusion cyst with evidence of prior infection. I recommended an excision under local anesthesia as an office based procedure and after discussion of the procedure, risks and alternatives, he consents to the surgery. Coding Level of Care Code New Pt Level 4 (30203) Diagnoses Abscess L02.91 Epidermal inclusion cyst L72.0
[2024-10-10 11:02] VITALS: BP 128/65; PULSE 99; BMI 43.0
--- OUTSIDE RECORDS SUMMARY | 2024-10-10 11:52 | XMS_ITS | Patient Health Record ---
[facility] Organization [facility] Address [address] [place] [address] Care Team Providers Care Chief Of Staff Doctor Name Role Phone Humble MARTINEZ, [place] Primary Care Provider Erin Xiao Unavailable [phone] Antonio Tuttle Unavailable Unavailable Allergies Allergen (clinical [...] Status W/U Status Risk Notes Problem Type II diabetes mellitus without complication (070262593) Type 2 diabetes mellitus without complication, without long-term current use of insulin (E11.9) Active confirmed Plan Of Treatment No Information Insurance Providers Payer Name Payer Address Payer Phone Subscriber Number Group Number Insured Name Patient Relationship to Insured Coverage Start Date Coverage End Date Ever E[employer] [address] [place] [address] [id number] Yo Rendon Self - patient is the insured Medical (General) History Medical History History ICD Code CAD (Cholesterol) Diabetes mellitus Headaches/Migraines High blood pressure Chicken pox Surgical History Surgery Date(Month/Year)
== END 2024-10-10 11:13 | disposition home or self-care (01) ==
LOC: HO.HGS 10:45
PROVIDERS: PCP Physician Assistant; Visit Provider Surgery
DX: L02.91 Cutaneous abscess, unspecified (principal); L72.0 Epidermal cyst
CPT/HCPCS: 99204

== ENCOUNTER 2024-11-18 09:43 | Outpatient (AMB) | payer BC, SELFPAY ==
[2024-11-18 09:53] VITALS: BP 120/72; BMI 42.7
--- NOTE | 2024-11-18 09:53 | MHC.OFFVIS ---
Vital Signs 11/18/24 09:53 Height 5 ft 11 in Weight 306 lb 7.08 oz BMI 42.7 BP 120/72 Blood Pressure Location Lt brachial Position Sitting Intake Visit Reasons: Exc neck cyst Intake Note: Patient is seen in office for office procedure: epidermal inclusion cyst of the posterior neck. 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 Accompanied by: Self / Same As Patient Allergies Penicillins (PENICILLINS) Allergy (Intermediate, Verified 11/18/24 09:53) UNKNOWN Medication List - Last Reconciled 11/18/24 by Diego Shi MD atorvastatin 10 mg PO BEDTIME benzonatate 200 mg PO BEDTIME PRN blood sugar diagnostic (FreeStyle Lite Strips) Test Daily blood-glucose meter (FreeStyle Lite Meter kit) Test Daily lancets (BD Ultra-Fine II Lancets) Test Daily lisinopril 5 mg PO DAILY 90 days lorazepam 0.5 mg PO DAILY PRN 5 days magnesium oxide 500 mg PO DAILY metformin 500 mg PO BID pyridoxine (vitamin B6) 100 mg PO DAILY 90 days tirzepatide (Mounjaro) 10 mg (0.5 mL) subcut QWEEK 4 weeks tirzepatide (Mounjaro) 7.5 mg (0.5 mL) subcut QWEEK 4 weeks Held on 08/01/24. Instructions: Doctor's Order zinc 50 mg PO DAILY HPI Comments Details: Patient returns for excision of an epidermal inclusion cyst of the posterior neck. COUNTS INCLUDE 234 BEDS AT THE [facility] Medical History Diabetes mellitus Pure hypercholesterolemia Benign essential hypertension Surgical History Hx of colonoscopy No pertinent past surgical history Family History Mother Diabetes CHF (congestive heart failure) High blood pressure Father No problems noted. Other Substance abuse Social History Household Members: Family Housing: House Do you presently have visiting nurse or other home services: No Alcohol intake: former Patient Tobacco Use Status: Former Tobacco user Tobacco use type: Cigarette e-Cigarette/Vaping Use: Never Used Second Hand Smoke Exposure: Yes service: No Current occupational status: employed Current occupation: [employer] Cognitive needs: No Hearing needs: No Vision needs: Yes (Glasses) Physical Exam Vital Signs: Last Vital Signs BP 120/72 11/18/24 09:53 BMI result Body Mass Index 42.7 Neck Neck images:  1. Site of the excision posterior left neck Office Procedures Excision Details: Preoperative diagnosis: Epidermal inclusion cyst posterior left neck Postoperative diagnosis: Same Procedure: Excision of epidermal inclusion cyst posterior left neck Surgeon: Diego Shi MD Loader Helper Sorting Yard: None Anesthesia: Lidocaine 1% with epinephrine Indications for procedure: 54-year-old male patient presenting with a recently infected epidermal inclusion cyst of the posterior left neck measuring approximately 2 cm in diameter. This is located in the crease of the posterior neck Operative findings: Residual epidermal inclusion cyst with open punctum, 2 cm diameter Specimen: Epidermal inclusion cyst posterior left neck Estimated blood loss: 2 mL Complications: None Procedure details: Patient was brought to the procedure room and placed in a right lateral decubitus position. The site of surgery was confirmed by the patient in the posterior left neck. After assuring informed consent the skin was prepped with Betadine and draped in a sterile fashion. Local anesthesia was then infiltrated circumferentially around the cyst. An elliptical incision oriented transversely was then created with a 15 blade. This was carried out through subcutaneous tissue and around the cyst wall. Hemostasis was assured using light pressure. Skin was then closed using interrupted 3-0 nylon sutures. Sterile dressings consisting of 4 x 4 gauze and paper tape were then applied. The patient tolerated the procedure well. He was discharged to home in stable condition. [id number] scalp/neck/hands/feet/genitalia 1.1cm-2cm Procedure code (CPT) selection complete Assessment & Plan Assessment & Plan (1) Epidermal inclusion cyst: Code(s): L72.0 - Epidermal cyst Category: Medical Plan Epidermal inclusion cyst posterior neck status post excision today. He will return in 1 week for suture removal. He should change dressings in the morning after a shower. He was provided with dressing supplies. Orders: Orders Surgical Today L72.0 - Epidermal cyst Coding Level of Care Code Procedure Only Diagnoses Epidermal inclusion cyst L72.0 CPT Codes Scalp/Neck/Hands/Feet/Genetalia - CPT: 66261-[id number] scalp/neck/hands/feet/genitalia 1.1cm-2cm ([id number])
--- OUTSIDE RECORDS SUMMARY | 2024-11-18 11:31 | XMS_ITS | Patient Health Record ---
Author Organization [facility] Address [address] [place] [address] Care Team Providers Care General Office Worker Name Role Phone Humble MARTINEZ, [place] Primary Care Provider Erin Xiao Unavailable [phone] Antonio Tuttle Unavailable Unavailable Allergies Allergen (clinical [...] Problem Type II diabetes mellitus without complication ([id number]) Type 2 diabetes mellitus without complication, without long-term current use of insulin (E11.9) Active confirmed Plan Of Treatment No Information Insurance Providers Payer Name Payer Address Payer Phone Subscriber Number Group Number Insured Name Patient Relationship to Insured Coverage Start Date Coverage End Date Ever Espinosa [address] [place] [address] [id number] Yo Rendon Self - patient is the insured Medical (General) History Medical History History ICD Code CAD (Cholesterol) Diabetes mellitus Headaches/Migraines High blood pressure Chicken pox Surgical History Surgery Date(Month/Year)
== END 2024-11-18 10:28 | disposition home or self-care (01) ==
PROVIDERS: PCP Physician Assistant; Visit Provider Surgery
DX: L72.0 Epidermal cyst (principal)
CPT/HCPCS: 11424

== ENCOUNTER 2024-11-18 09:43 | Outpatient (REF) | payer BC, SELFPAY | END 2024-11-18 09:44 | disposition home or self-care (01) | LOC: HO.LNP 09:43 | PROVIDERS: PCP Physician Assistant; Visit Provider Surgery | DX: L72.0 Epidermal cyst (principal); Z79.899 Other long term (current) drug therapy | CPT/HCPCS: 88304 ==

== ENCOUNTER 2024-11-25 09:46 | Outpatient (AMB) | payer BC, SELFPAY ==
--- NOTE | 2024-11-25 09:48 | A.OFFVIS_ITS ---
Vital Signs 3 11/25/24 09:53 Height 5 ft 11 in Weight 309 lb BMI 43.1 BP 127/66 Blood Pressure Location Lt brachial Position Sitting Pulse 93 Intake Visit Reasons: s/p abscess on neck Intake Note: Patient is seen in office for suture removal, post excision of neck cyst. Pt c/o: noticed yellowish discharge on towel after shower. Tenderness, skin feels tight. 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 Some pain with moving around, feels like the sutures are pulling, ripping the skin. He has been keeping the area covered with a Band-Aid. Additionally he has been cleaning with soap and water. He denies any fevers or chills at home. He does notice some bleeding on the Band-Aids along with some clear yellow fluid PFSH Medical History Diabetes mellitus Pure hypercholesterolemia Benign essential hypertension Surgical History Hx of colonoscopy No pertinent past surgical history Family History Mother Diabetes CHF (congestive heart failure) High blood pressure Father No problems noted. Other Substance abuse Social History Household Members: Family Housing: House Do you presently have visiting nurse or other home services: No Alcohol intake: former Patient Tobacco Use Status: Former Tobacco user Tobacco use type: Cigarette e-Cigarette/Vaping Use: Never Used Second Hand Smoke Exposure: Yes service: No Current occupational status: employed Current occupation: [employer] Cognitive needs: No Hearing needs: No Vision needs: Yes (Glasses) Review of Systems Const All systems reviewed & are unremarkable except as noted in HPI and below Physical Exam Vital Signs: Last Vital Signs Pulse 93 11/25/24 09:53 BP 127/66 11/25/24 09:53 BMI result Body Mass Index 43.1 Const General: comfortable and no acute distress Orientation/consciousness: patient oriented x3 Neck Other: Excision site clean, sutures in place mildly tender to palpation the lateral sides appear to be healing well. The center has some scant serosanguineous discharge, some mild separation of the incision site Neck images: 2 1. Excision site Neuro General: patient oriented x3 Assessment & Plan Assessment & Plan (1) Epidermal inclusion cyst: Code(s): L72.0 - Epidermal cyst Category: Medical Plan 54-year-old male s/p excision of epidermal inclusion cyst on 11/[address] Shi. Patient reports he is overall doing well he does have some pain at work and with movements of his head due to the sutures he feels like pulling on the skin. He did have some bleeding, has noticed dried blood on the dressing as well as some clear yellow fluid. I reassured him this is likely just serous fluid. he has been keeping it covered using a Band-Aid, washing with soap and water. Denying fevers or chills. On exam the incision site appears to be healing but likely the center needs more time. The lateral edges appear to be healing well while the center has a little bit of separation from the incision site along with some scant serosanguineous discharge. There was no surrounding erythema. I dabbed up some of the serosanguineous fluid and was able to visualize some small separation of the center of the incision site. I removed the lateral sutures. There are 3 remaining sutures in the center of the wound. He will return in one-week to remove sutures. I recommended that he dress this with a folded 2 x 2 gauze and a Band-Aid. Okay to wash with soap and water, educated him to keep this area dry as best as possible. He will follow up in one-week for suture removal Coding Level of Care Code Est Pt Level 3 (59588) Diagnoses Epidermal inclusion cyst L72.0
[2024-11-25 09:53] VITALS: BP 127/66; PULSE 93; BMI 43.1
--- OUTSIDE RECORDS SUMMARY | 2024-11-25 10:40 | XMS_ITS | Patient Health Record ---
Author Organization [facility] Address [address] [place] [address] Care Team Providers Care Ophthalmic Dispenser Name Role Phone Humble MARTINEZ, [place] Primary Care Provider Erin Xiao Unavailable [phone] Antonio Tuttle Unavailable Unavailable Allergies Allergen (clinical [...] Problem Type II diabetes mellitus without complication ([id number]) Type 2 diabetes mellitus without complication, without long-term current use of insulin (E11.9) Active confirmed Plan Of Treatment No Information Insurance Providers Payer Name Payer Address Payer Phone Subscriber Number Group Number Insured Name Patient Relationship to Insured Coverage Start Date Coverage End Date Ever Espinosa [address] [place] [address] [id number] Yo Rendon Self - patient is the insured Medical (General) History Medical History History ICD Code CAD (Cholesterol) Diabetes mellitus Headaches/Migraines High blood pressure Chicken pox Surgical History Surgery Date(Month/Year)
== END 2024-11-25 10:13 | disposition home or self-care (01) ==
LOC: HO.HGS 09:46
PROVIDERS: PCP Physician Assistant
DX: L72.0 Epidermal cyst (principal)
CPT/HCPCS: 99024

== ENCOUNTER 2024-12-02 10:38 | Outpatient (AMB) | payer BC, SELFPAY ==
--- NOTE | 2024-12-02 10:46 | MHC.OFFVIS ---
Vital Signs 12/02/24 10:50 Weight 308 lb BP 126/60 Blood Pressure Location Rt brachial Position Sitting Pulse 96 Intake Visit Reasons: s/p exc mid post neck Intake Note: Patient here s/p cyst excision on posterior scalp. Patient c/o: tender to touch, states I hope is closed. Denies oozing, bleeding. WLE (SOFYA): 11-18-2024 Vaccines Solutions Specialist Required: No Accompanied by: Self / Same As Patient Allergies Penicillins (PENICILLINS) Allergy (Intermediate, Verified 12/02/24 10:49) UNKNOWN HPI HPI s/p exc mid post neck: Details: Doing well, feels better than last week. Still has some pulling sensation on the sutures when moving his neck around. There has been a small amount of blood on the dressings when he changes it. Denies any pus. Denies fevers or chills. [facility] Medical History Diabetes mellitus Pure hypercholesterolemia Benign essential hypertension Surgical History Hx of colonoscopy No pertinent past surgical history Family History Mother Diabetes CHF (congestive heart failure) High blood pressure Father No problems noted. Other Substance abuse Social History Household Members: Family Housing: House Do you presently have visiting nurse or other home services: No Alcohol intake: former Patient Tobacco Use Status: Former Tobacco user Tobacco use type: Cigarette e-Cigarette/Vaping Use: Never Used Second Hand Smoke Exposure: Yes service: No Current occupational status: employed Current occupation: [employer] Cognitive needs: No Hearing needs: No Vision needs: Yes (Glasses) Review of Systems Const All systems reviewed & are unremarkable except as noted in HPI and below Physical Exam Vital Signs: Last Vital Signs Pulse 96 12/02/24 10:50 BP 126/60 12/02/24 10:50 Const General: comfortable and no acute distress Orientation/consciousness: patient oriented x3 Neck Other: Excision site clean, [address] in the middle of the incision. Nontender to palpation. the lateral sides appear to be healing well. The center appears to be healing well, improved from last week appears intact. Three sutures removed. No fluid collection no surrounding erythema no active drainage. Neuro General: patient oriented x3 Assessment & Plan Assessment & Plan (1) Epidermal inclusion cyst: Code(s): L72.0 - Epidermal cyst Category: Medical Plan 54-year-old male s/p excision of epidermal inclusion cyst on 11/[address] Shi. Patient reports he is continuing to do well overall doing well. States he does have some pain with movements of his head due to the sutures he feels like pulling on the skin. He did have some very spotty bleeding on dressing, denies pus. washing with soap and water. Denying fevers or chills. On exam the incision site appears to be healing today, the center now appears to be closed, I removed 3 sutures in the office which he tolerated well. Given that this is a high tension area in a fold of skin I did place Steri-Strips to prevent any separation of the wound over the next few days. I instructed him to take this off after 3 days The lateral edges appear to be healing well There was no surrounding erythema. No discharge. I am not concerned for infection at this time. He is to remove the Steri-Strips in a few days. Okay to wash with soap and water. Recommended he keep this area dry as best as possible. He may follow up as needed with concerns in the future. Coding Level of Care Code Est Pt Level 3 (75783) Diagnoses Epidermal inclusion cyst L72.0
[2024-12-02 10:50] VITALS: BP 126/60; PULSE 96
--- OUTSIDE RECORDS SUMMARY | 2024-12-02 12:41 | XMS_ITS | Patient Health Record ---
Author Organization [facility] Address [address] [place] [address] Care Team Providers Care Securities And Real Estate Director Name Role Phone Humble MARTINEZ, [place] Primary Care Provider Erin Xiao Unavailable [phone] Antonio Tuttle Unavailable Unavailable Allergies Allergen (clinical [...] Problem Type II diabetes mellitus without complication ([id number]) Type 2 diabetes mellitus without complication, without long-term current use of insulin (E11.9) Active confirmed Plan Of Treatment No Information Insurance Providers Payer Name Payer Address Payer Phone Subscriber Number Group Number Insured Name Patient Relationship to Insured Coverage Start Date Coverage End Date Ever Espinosa [address] [place] [address] [id number] Yo Rendon Self - patient is the insured Medical (General) History Medical History History ICD Code CAD (Cholesterol) Diabetes mellitus Headaches/Migraines High blood pressure Chicken pox Surgical History Surgery Date(Month/Year)
== END 2024-12-02 10:57 | disposition home or self-care (01) ==
LOC: HO.HGS 10:39
PROVIDERS: PCP Physician Assistant
DX: L72.0 Epidermal cyst (principal)
CPT/HCPCS: 99213

== ENCOUNTER 2024-12-03 06:04 | Outpatient (REF) | payer BC, SELFPAY ==
--- OUTSIDE RECORDS SUMMARY | 2024-12-03 06:06 | XMS_ITS | Patient Health Record ---
Author Organization [facility] Address [address] [place] [address] Care Team Providers Care Escrow Representative Name Role Phone Humble MARTINEZ, [place] Primary Care Provider Erin Xiao Unavailable [phone] Antonio Tuttle Unavailable Unavailable Allergies Allergen (clinical [...] Problem Type II diabetes mellitus without complication ([id number]) Type 2 diabetes mellitus without complication, without long-term current use of insulin (E11.9) Active confirmed Plan Of Treatment No Information Insurance Providers Payer Name Payer Address Payer Phone Subscriber Number Group Number Insured Name Patient Relationship to Insured Coverage Start Date Coverage End Date Ever Espinosa [address] [place] [address] [phone] [id number] Yo Rendon Self - patient is the insured Medical (General) History Medical History History ICD Code CAD (Cholesterol) Diabetes mellitus Headaches/Migraines High blood pressure Chicken pox Surgical History Surgery Date(Month/Year)
[2024-12-03 07:28] LABS: Hematocrit 43.6 % (42.0-52.0); Hemoglobin 15.0 g/dl (14.0-18.0); Mean Corpuscular HGB Conc 34.4 g/dl (31.0-36.0); Mean Corpuscular Hemoglobin 29.9 pg (27.0-33.0); Mean Corpuscular Volume 87.0 fL (80.0-98.0); NRBC Abs Auto 0.000 X10*3/uL (0.0-0.012); NRBC Pct Auto 0.0 /100WBC (0.0-0.2); Platelet Count 208 X10*3/uL (160-400); Red Blood Count 5.01 X10*6/uL (4.60-5.80); White Blood Count 7.6 X10*3/uL (4.8-10.8)
[2024-12-03 07:40] LABS: Hemoglobin A1C 150.8048 umol/L
[2024-12-03 08:18] LABS: Alanine Aminotransferase 33 U/L (0-40); Albumin Level 4.2 g/dL (3.5-5.0); Alkaline Phosphatase 95 U/L (39-117); Anion Gap 12 (12-20); Aspartate Amino Transferase 25 U/L (5-37); Blood Urea Nitrogen 15 mg/dL (9-16); Calcium 9.2 mg/dL (8.4-10.2); Carbon Dioxide 30 mmol/L (22-29); Chloride 106 mmol/L (96-108); Cholesterol 160 mg/dL (<200); Estimated Glomerular Filt Rate > 60; HDL Cholesterol 44 mg/dL (>40); Potassium 4.8 mmol/L (3.3-5.1); Sodium 143 mmol/L (135-145); Total Protein 7.2 g/dL (6.5-8.0); Triglycerides 64 mg/dL (<150)
== END 2024-12-03 06:05 | disposition home or self-care (01) ==
LOC: HO.LAB 06:04
PROVIDERS: PCP Physician Assistant; Visit Provider Physician Assistant
DX: E11.65 Type 2 diabetes mellitus with hyperglycemia (principal); E78.00 Pure hypercholesterolemia, unspecified
CPT/HCPCS: 36415; 80053; 80061; 83036; 85027

== ENCOUNTER 2024-12-04 08:48 | Outpatient (AMB) | payer BC, SELFPAY ==
--- NOTE | 2024-12-04 08:51 | A.OFFPC_ITS ---
Vital Signs 12/04/24 08:53 12/04/24 09:09 Height 5 ft 11 in Weight 310 lb 8 oz BMI 43.3 BP 140/92 H 130/80 Blood Pressure Location Lt brachial Position Sitting Pulse 86 Pulse Source Pulse Oximeter Temp 97.1 F Temp Source Temporal Artery Scan Pulse Oximetry (%) 97 Oxygen Delivery Method Room Air Intake Visit Reasons: f/u DMII - weight check Intake Note: Patient is here to follow up on DM, Weight check. Shop Teacher Required: No Seo Specialist: Not Required per policy Accompanied by: Self / Same As Patient Allergies Penicillins (PENICILLINS) Allergy (Intermediate, Verified 12/04/24 09:01) UNKNOWN Medication List - Last Reconciled 12/04/24 by Antonio Tuttle PA-C atorvastatin 10 mg PO BEDTIME blood sugar diagnostic (FreeStyle Lite Strips) Test Daily blood-glucose meter (FreeStyle Lite Meter kit) Test Daily lancets (BD Ultra-Fine II Lancets) Test Daily lisinopril 5 mg PO DAILY 90 days lorazepam 0.5 mg PO DAILY PRN 5 days magnesium oxide 500 mg PO DAILY metformin 500 mg PO BID pyridoxine (vitamin B6) 100 mg PO DAILY 90 days tirzepatide (Mounjaro) 10 mg (0.5 mL) subcut QWEEK 4 weeks zinc 50 mg PO DAILY Tobacco use date assessed: 12/04/24 Dental Screening Dental Screen Date: 08/01/24 HPI f/u DMII - weight check HPI Details Patient is a 54-year-old male here today for follow-up visit. Patient has a past medical history significant for type 2 diabetes, hyperlipidemia, hypertension, nephrolithiasis, morbid obesity. Concern--> has been working with [facility] general surgeon for postop management of a epidermal cyst that was taken off of the back of his neck. There is a large skin fold in the area which was causing some complication with healing .. Type 2 diabetes:? Patient currently on it alternative GLP 1 (Mounjaro). Most recent A1c acceptable at 5.8 . Continues on metformin 500 b.i.d and GLP. PLAN: Will increase his Mounjaro dose to 12.5 weekly to help with glycemic control in induced more weight loss. . Class 3 obesity: Today's BMI at 43. Has lost weight since last office visit, reports low appetite secondary to GLP 1. Hypertension:? Blood pressure today in office acceptable.? Will continue him on his current dose of lisinopril.? He denies any headaches , chest discomforts or dizziness. . Hyperlipidemia:? He does report reducing his atorvastatin to half tablet 5 mg daily in his side effects of back pain have resolved.? Most recent LDL above 100.? Will recheck fasting lipid panel above 100 will consider increasing potency of statin. Laboratory Tests 03/10/22 09/26/23 02/01/24 06:19 14:41 07:52 RBC Hgb Creatinine Random Glucose Fasting Glucose Hemoglobin A1c % 6.2 Hgb A1c (Clinic) 6.3 H 6.2 H Troponin I High Se ns Cholesterol LDL Cholesterol, C alc Urine Microalbumin 06/02/24 06/03/24 07/30/24 23:41 14:52 06:16 RBC 5.32 Hgb Creatinine Random Glucose 123 H Fasting Glucose Hemoglobin A1c % Hgb A1c (Clinic) 5.8 Troponin I High Se ns < 2.7 Cholesterol LDL Cholesterol, C alc Urine Microalbumin < 5.0 07/30/24 12/03/24 06:20 06:19 RBC 5.26 5.01 Hgb 15.0 Creatinine 1.03 0.88 Random Glucose Fasting Glucose 93 Hemoglobin A1c % 5.8 Hgb A1c (Clinic) Troponin I High Se ns Cholesterol 131 160 LDL Cholesterol, C alc 76 104 H Urine Microalbumin [facility] Medical History Diabetes mellitus Pure hypercholesterolemia Benign essential hypertension Surgical History History of neck surgery Hx of colonoscopy Family History Mother Diabetes CHF (congestive heart failure) High blood pressure Father No problems noted. Other Substance abuse Social History Household Members: Family Housing: House Do you presently have visiting nurse or other home services: No Alcohol intake: former Patient Tobacco Use Status: Former Tobacco user Tobacco use type: Cigarette e-Cigarette/Vaping Use: Never Used Second Hand Smoke Exposure: Yes service: No Current occupational status: employed Current occupation: [employer] Cognitive needs: No Hearing needs: No Vision needs: Yes (Glasses) Questionnaire Thrive Questionnaire Date Thrive assessed: 07/31/24 I am a: Patient What is your living situation today?: I have a steady place to live Within the past 12 months, did the food you bought not last and you didn't have the money to get more?: Never true Within the past 12 months, did you worry whether your food would run out before you got money to buy more?: Never true Do you have trouble paying for medicines?: No Do you have trouble getting transportation to medical appointments?: No Do you have trouble paying your heating and electricity bill?: No Do you have trouble taking care of your child, family member or friend?: No Do you have trouble with day-to-day activities such as bathing, preparing meals, shopping, managing finances, etc.?: No Are you currently unemployed and looking for a job?: No Are you interested in more education?: No Please select the resources that you would like help with: None Currently or been in a relationship where the following occur: No concerns reported THRIVE Score: 0 YAMILE-7 AMB Questionnaire YAMILE-7 Date YAMILE - 7 assessed: 08/01/24 Source: Developed by Drs. Josse Ortiz, Eda Patrick, Danilo Dumas and colleagues, with an educational alok from [employer]. Review of Systems Const Denies headache(s) Eyes Denies loss of vision ENT Denies vertigo, Denies dizziness, Denies headache(s) and Denies sore throat Card Denies chest pain, Denies leg edema and Denies lightheadedness Resp Denies cough, Denies hemoptysis and Denies wheezing GI Denies abdominal pain, Denies melena, Denies constipation, Denies diarrhea and Denies vomiting Denies dysuria, Denies urinary frequency and Denies urinary urgency Musc Denies arthralgias, Denies joint swelling, Denies numbness and Denies tingling Neuro Denies Abnormal speech present, Denies behavioral changes, Denies vertigo, Denies dizziness, Denies headache(s), Denies loss of vision, Denies memory loss, Denies numbness and Denies tingling Psych Denies anxiety, Denies behavioral changes, Denies depression, Denies memory loss and Denies panic attacks Mohan/Lymph Denies easy bleeding and Denies easy bruising Aller/Immun Denies wheezing Physical exam (Primary Care) Vital Signs: Last Vital Signs Temp 97.1 F 12/04/24 08:53 Oxygen Delivery Method Room Air 12/04/24 08:53 BMI result Body Mass Index 43.3 BMI Assessment/Plan discussion: High BMI High, discussed plan: lifestyle, weight reduction, dietary and physical activity Tobacco/Smoking Status: Tobacco use Status Tobacco use date assessed 08/01/24 08/01/24 09:15 Patient Tobacco Use Status Former Tobacco user 09/03/24 08:15 Tobacco use type Cigarette 08/01/24 09:15 e-Cigarette/Vaping Use Never Used 08/01/24 09:15 Thrive Assessment: Date of Thrive Assessment Date Thrive assessed 07/31/24 11/27/24 12:59 Currently or been in a relationship where the following occur: No concerns reported Const General: healthy appearing, no acute distress, alert and awake Nutritional Appearance: well nourished Orientation/consciousness: oriented to person, oriented to place and oriented to time HENMT Ears: TM's normal bilaterally General nose exam: Normal nasal mucous membranes and turbinates present Eyes Conjunctivae: conjunctivae normal Sclerae: sclerae normal Pupils: Equal, round and reactive pupils present Neck Neck: Yes no lymphadenopathy and Yes no JVD Thyroid: Thyroid normal Carotids: no bruits Resp Effort & Inspection: normal respiratory effort and not tachypneic Auscultation: no crackles, no rales, no rhonchi and no wheezes Cardio Rate: regular rate Rhythm: regular rhythm Heart sounds: no murmurs and normal S1 and S2 GI Palpation (GI): Soft to palpation, nontender, no hepatomegaly and no splenomegaly Auscultation: normal bowel sounds Skin General skin exam: no rashes or lesions noted and dry skin Neuro General: oriented to person, oriented to place and oriented to time Cranial nerves: Yes Equal, round and reactive pupils present Speech: No Abnormal speech present Gait exam (Neuro): Normal gait present Motor exam (neuro): no tremor noted Extrem Right upper extremity: full ROM Left upper extremity: full ROM Right lower extremity: full ROM; no edema Left lower extremity: full ROM; no edema Psych Mental Status: mental status grossly normal Speech and movement: Normal speech and movement present Affect: normal affect Attitude: cooperative Thought process: Normal thought process present Coding Level of Care Code Est Pt Level 4 (48854) Diagnoses Type 2 diabetes mellitus with hyperglycemia, without long-term current use of insulin E11.65 Diabetes mellitus type: type 2 Diabetes mellitus shelter insulin use: without termite exterminator use Diabetes mellitus complication status: with hyperglycemia Pure hypercholesterolemia E78.00 Class 3 obesity E66.813 Benign essential hypertension I10 Epidermoid cyst of neck L72.0 Assessment & Plan Assessment & Plan (1) Diabetes mellitus: Comment: I am unable to review his most recent blood work-however he in his are informed. Reportedly his hemoglobin A1c has improved Reviewed PCP note Code(s): E11.9 - Type 2 diabetes mellitus without complications Category: Medical Qualifiers: Diabetes mellitus type: type 2 Diabetes mellitus shelter insulin use: without shelter use Diabetes mellitus complication status: with hyperglycemia Qualified Code(s): E11.65 - Type 2 diabetes mellitus with hyperglycemia Plan: Patient's type 2 diabetes well controlled with current antihyperglycemic medications. Most recent A1c acceptable, most recent fasting blood sugar appropriate. Will increase his GLP 1 to a higher dose to induce more weight loss as his weight reduction has plateaued. Goal A1c is to remain below 6.5 (2) Pure hypercholesterolemia: Code(s): E78.00 - Pure hypercholesterolemia, unspecified Category: Medical Plan: Most recent lipid panel showing good control of his total cholesterol those LDL is borderline high. He will start taking his atorvastatin 5 mg more consistently. . Goal LDL to remain below 100 (3) Class 3 obesity: Code(s): E66.813 - Obesity, class 3 Category: Medical Plan: Patient does understand his BMI is over 40 will continue working on being more physically active and adapting to better eating habits to reduce his weight. Will increase his GLP 1 dose to help with more weight loss. (4) Benign essential hypertension: Code(s): I10 - Essential (primary) hypertension Category: Medical Plan: Patient's blood pressure acceptable today in office. Will continue current dose of lisinopril with goal blood pressure to remain below 140/90 (5) Epidermoid cyst of neck: Code(s): L72.0 - Epidermal cyst Category: Medical Plan: Has had a epidermal cyst removed from his neck, has had some delayed healing due to the surgical scar being in a neck skin fold. Orders: Orders Complete Blood Count no Diff Today E78.00 - Pure hypercholesterolemia, unspecified Comprehensive [place]. Panel Fast Today E78.00 - Pure hypercholesterolemia, unspecified Lipid Panel Today E78.00 - Pure hypercholesterolemia, unspecified Hemoglobin A1c Today E11.65 - Type 2 diabetes mellitus with hyperglycemia Microalbumin, Random (w Creat) Today E11.65 - Type 2 diabetes mellitus with hyperglycemia Medications: New tirzepatide (Mounjaro) 12.5 mg (0.5 mL) subcut QWEEK 2 mL 3RF 4 weeks E11.65 - Type 2 diabetes mellitus with hyperglycemia On Hold tirzepatide (Mounjaro) Hold Comment: Doctor's Order 10 mg (0.5 mL) subcut QWEEK 2 mL 3RF 4 weeks E11.65 - Type 2 diabetes mellitus with hyperglycemia
[2024-12-04 08:53] VITALS: BP 140/92; PULSE 86; TEMP 36.2; O2SAT 97; BMI 43.3
[2024-12-04 09:09] VITALS: BP 130/80
== END 2024-12-04 09:18 | disposition home or self-care (01) ==
LOC: HO.HMCH 08:48
PROVIDERS: PCP Physician Assistant; Visit Provider Physician Assistant
DX: E11.65 Type 2 diabetes mellitus with hyperglycemia (principal); E66.813 Obesity, class 3; Z68.41 Body mass index [BMI] 40.0-44.9, adult; E78.00 Pure hypercholesterolemia, unspecified; I10 Essential (primary) hypertension; L72.0 Epidermal cyst

== ENCOUNTER 2025-01-16 22:39 | Emergency (ER) | payer BC, SELFPAY ==
[2025-01-16 22:43] VITALS: BP 121/74; BP 130/81; PULSE 85; RESP 18; TEMP 36.5; O2SAT 97; O2SAT 98; BMI 43.9
--- NOTE | 2025-01-16 22:43 | ECG_ITS ---
Test Reason : SYNCOPE Blood Pressure : */* mmHG Vent. Rate : 76 BPM Atrial Rate : 76 BPM P-R Int : 164 ms QRS Dur : 74 ms QT Int : 362 ms P-R-T Axes : 10 2 2 degrees QTcB Int : 407 ms Normal sinus rhythm Normal ECG When compared with ECG of 02-Jun-2024 23:31, No significant change was found Referred By: Generic ED Physician Electronically Signed By: CHEYENNE SOLIS
[2025-01-16 22:56] LABS: Glucose, Whole Blood 129 mg/dL (60-115)
[2025-01-16 23:24] VITALS: BP 134/82; PULSE 85; RESP 14; O2SAT 97
[2025-01-16 23:34] LABS: MANUAL DIFF FLAG NO
[2025-01-16 23:38] LABS: Hematocrit 42.0 % (42.0-52.0); Hemoglobin 14.3 g/dl (14.0-18.0); Imm Gran Abs Auto 0.03 X10*3/uL (0.00-0.03); Imm Gran Pct Auto 0.4 % (0.0-0.4); Lymphocytes Absolute Auto 1.9 X10*3/uL (1.2-4.9); Mean Corpuscular HGB Conc 34.0 g/dl (31.0-36.0); Mean Corpuscular Hemoglobin 29.6 pg (27.0-33.0); Mean Corpuscular Volume 87.0 fL (80.0-98.0); NRBC Abs Auto 0.000 X10*3/uL (0.0-0.012); NRBC Pct Auto 0.0 /100WBC (0.0-0.2); Platelet Count 203 X10*3/uL (160-400); Red Blood Count 4.83 X10*6/uL (4.60-5.80); White Blood Count 8.0 X10*3/uL (4.8-10.8)
[2025-01-16 23:53] LABS: Alanine Aminotransferase 35 U/L (0-40); Albumin Level 4.2 g/dL (3.5-5.0); Alkaline Phosphatase 85 U/L (39-117); Anion Gap 14 (12-20); Aspartate Amino Transferase 36 U/L (5-37); Blood Urea Nitrogen 22 mg/dL (9-16); Calcium 9.6 mg/dL (8.4-10.2); Carbon Dioxide 26 mmol/L (22-29); Chloride 104 mmol/L (96-108); Creatinine Clr Calc Pharmacy 105.9; Estimated Glomerular Filt Rate > 60; Potassium 3.8 mmol/L (3.3-5.1); Sodium 140 mmol/L (135-145); Total Protein 6.9 g/dL (6.5-8.0)
[2025-01-17 00:04] LABS: Troponin-I High Sensitivity < 2.7 ng/L (<3.5-35.0)
--- OUTSIDE RECORDS SUMMARY | 2025-01-17 00:13 | XMS_ITS | Patient Health Record ---
Author Organization [facility] Address [address] [place] [address] Care Team Providers Care Sugar Mixer Name Role Phone Humble MARTINEZ, [place] Primary Care Provider Erin Xiao Unavailable [phone] Antonio Tuttle Unavailable Unavailable Allergies Allergen (clinical [...] Problem Type II diabetes mellitus without complication ([id number]) Type 2 diabetes mellitus without complication, without long-term current use of insulin (E11.9) Active confirmed Plan Of Treatment No Information Insurance Providers Payer Name Payer Address Payer Phone Subscriber Number Group Number Insured Name Patient Relationship to Insured Coverage Start Date Coverage End Date Ever Espinosa [address] [place] [address] [id number] Yo Rendon Self - patient is the insured Medical (General) History Medical History History ICD Code CAD (Cholesterol) Diabetes mellitus Headaches/Migraines High blood pressure Chicken pox Surgical History Surgery Date(Month/Year)
[2025-01-17 01:00] VITALS: BP 115/80; BP 125/72; PULSE 82; PULSE 94
[2025-01-17 01:01] VITALS: BP 107/76; PULSE 94
--- NOTE | 2025-01-17 01:01 | ED.SYNCOPE ---
HPI - Syncope General Chief Complaint: Syncope Stated Complaint: syncope Time Seen by Provider: 01/17/25 00:35 Source: patient Mode of arrival: ambulatory Limitations: no limitations History of Present Illness ED Provider: Dr. Ester Evangelista HPI narrative: Patient comes to the emergency room complaining of a syncopal episode. According to the patient, the patient had a very painful left lower extremity cramps, stood up and then passed out. Patient denies hitting his head or losing consciousness, patient denies being on blood thinners. Patient, patient no longer having leg pain, no chest pain no shortness of breath Related Data Home Medications ?Medication ?Instructions ?Recorded ?Confirmed magnesium oxide 500 mg PO DAILY 02/04/23 12/04/24 zinc 50 mg tablet 50 mg PO DAILY 02/04/23 12/04/24 Previous Rx's ?Medication ?Instructions ?Recorded blood sugar diagnostic (FreeStyle #100 ea 07/22/21 Lite Strips) lancets 30 gauge (BD Ultra-Fine II #100 ea 07/22/21 Lancets) blood-glucose meter (FreeStyle #1 ea 09/02/21 Lite Meter kit) atorvastatin 10 mg tablet 10 mg PO BEDTIME #90 tabs 04/10/24 metformin 500 mg tablet 500 mg PO BID #180 tabs 04/10/24 lorazepam 0.5 mg tablet 0.5 mg PO DAILY PRN anxiety 5 days 06/03/24 #5 tabs pyridoxine (vitamin B6) 100 mg 100 mg PO DAILY 90 days #90 tabs 09/28/24 tablet tirzepatide 10 mg/0.5 mL 10 mg (0.5 mL) subcut QWEEK 4 11/06/24 subcutaneous pen injector weeks #2 mL (Mounjaro) Held on 12/04/24. Instructions: Doctor's Order lisinopril 5 mg tablet 5 mg PO DAILY 90 days #90 tabs 11/20/24 tirzepatide 12.5 mg/0.5 mL 12.5 mg (0.5 mL) subcut QWEEK 4 12/04/24 subcutaneous pen injector weeks #2 mL (Mounjaro) Allergies Allergy/AdvReac Type Severity Reaction Status Date / Time Penicillins (PENICILLINS) Allergy Intermediate UNKNOWN Verified 01/16/25 22:46 Review of Systems Review of Systems: Constitutional : No Weight loss, No Fever, No Chills, No Night Sweats, No Fatigue, No Malaise ENT/Mouth : No Hearing loss, No Ear Pain, No Nasal Congestion, No Sinus Pain, No Hoarseness, No sore throat, No Rhinorrhea, No Swallowing Difficulty Eyes: No Eye Pain, No Swelling, No Redness, No Foreign Body, No Discharge, No Vision Changes Cardiovascular : No Chest Pain, No SOB, No Dyspnea on Exertion, No Orthopnea, No Edema, No Palpitations Respiratory : No Cough, No Sputum, No Wheezing, No Smoke Exposure, No Dyspnea Gastrointestinal : No Nausea, No Vomiting, No Diarrhea, No Constipation, No abdominal Pain, No Hematochezia, No Melena Genitourinary : no irregular bleeding, No Dysuria, No Urinary Frequency, No Hematuria, No Urinary Incontinence, No Urgency, No Flank Pain, No Urinary Flow Changes, No Hesitancy Musculoskeletal : No joint pain, No Myalgias, No Joint Swelling Skin : No Skin Lesions, No rash Neuro : No Weakness, No Numbness, No Paresthesias, No Loss of Consciousness, No Dizziness, No Headache Psych : No Anxiety/Panic, No Depression, No SI/HI/AH/VH, No Social Issues, Heme/Lymph: No Bruising, No Bleeding,No Lymphadenopathy Endocrine : No Polyuria, No Polydipsia, No Temperature Intolerance [facility] Past Medical History Medical History Diabetes mellitus Pure hypercholesterolemia Benign essential hypertension Surgical History History of neck surgery Hx of colonoscopy Family History Family History Mother Diabetes CHF (congestive heart failure) High blood pressure Father No problems noted. Other Substance abuse Social History Social History Household Members: Family Housing: House Do you presently have visiting nurse or other home services: No Alcohol intake: former Patient Tobacco Use Status: Former Tobacco user Tobacco use type: Cigarette Smoked in Last 30 Days: No e-Cigarette/Vaping Use: Never Used Second Hand Smoke Exposure: Yes Use of substances other than those prescribed or required for medical reasons: No Advance Directives: No Advance Directives Information Provided: Yes service: No Current occupational status: employed Current occupation: [employer] Cognitive needs: No Hearing needs: No Vision needs: Yes (Glasses) Physical Exam Vital Signs: Vital Signs: Last Vital Signs Temp 97.7 F 01/16/25 22:43 Pulse 94 01/17/25 01:01 Resp 14 01/16/25 23:24 BP 107/76 01/17/25 01:01 Pulse Ox 98 01/17/25 01:19 O2 Del Method Room Air 01/17/25 01:19 BMI result Body Mass Index 43.9 Course Course Course Narrative: patient very anxious, asking to leave. I discussed with the patient that his medical workup is not completed yet, pulmonary embolism has not been ruled out versus orthostatic hypotension versus cardiac arrhythmia. grudgingly, patient agreed to stay Medical Decision Making Medical Decision Making MDM Narrative: my interpretation of EKG: Normal sinus rhythm, heart rate 76, no ST segment depression or elevation, nonspecific T-wave inversion in lead 3, QTC 407 My interpretation of labs: No significant abnormality in patient's hematology or chemistry, troponin negative, D-dimer negative, urine toxicology negative, ETOH negative, orthostatic vitals negative. patient states that he has had previous syncopal episodes, all pain related. Patient states that he can not take pain very well a passes out. Patient denies any previous chest pain or any chest pain at this time. Discussed with the patient that this was likely a vasovagal syncope. Patient will follow-up with the primary care physician. Patient may be a good candidate for a Holter monitor versus cardiac stress test. Patient and his agree with plan. Differential Diagnosis Differential Diagnoses: The differential diagnosis associated with the presentation includes ( As above) Admission/Observation Consideration of admission/observation: Escalation of care including admission/observation considered ( given patient's presentation and story observation was considered) Lab Data MDM Lab Attestation statement: I reviewed the patient's lab results. 01/16/25 23:23 01/16/25 23:23 Labs: Lab Results 01/16/25 01/16/25 01/17/25 Range/Units 22:46 23:23 01:04 WBC 8.0 (4.8-10.8) X10*3/uL RBC 4.83 (4.60-5.80) X10*6/uL Hgb 14.3 (14.0-18.0) g/dl Hct 42.0 (42.0-52.0) % MCV 87.0 (80.0-98.0) fL MCH 29.6 (27.0-33.0) pg MCHC 34.0 (31.0-36.0) g/dl RDW 13.1 (11.0-16.0) % Plt Count 203 (160-400) X10*3/uL MPV 9.6 (9.4-12.4) fL Immature Gran % (Auto) 0.4 (0.0-0.4) % Neut % (Auto) 66.1 (45-73) % Lymph % (Auto) 23.5 (20-40) % [place] % (Auto) 8.1 (2-11) % Eos % (Auto) 1.8 (0-4) % Baso % (Auto) 0.1 (0-2) % Lymph # (Auto) 1.9 (1.2-4.9) X10*3/uL [place] # (Auto) 0.6 (0.1-1.2) X10*3/uL Eos # (Auto) 0.1 (0.0-0.4) X10*3/uL Baso # (Auto) 0.0 (0.0-0.2) X10*3/uL Abs Immat Gran (auto) 0.03 (0.00-0.03) X10*3/uL Absolute Neuts (auto) 5.3 (2.0-8.3) x10*3/uL Absolute Nucleated RBC 0.000 (0.0-0.012) X10*3/uL Nucleated RBC % (auto) 0.0 (0.0-0.2) /100WBC D-Dimer High Sensitivty < 150 NG/ML Sodium 140 (135-145) mmol/L Potassium 3.8 D (3.3-5.1) mmol/L Chloride 104 (96-108) mmol/L Carbon Dioxide 26 (22-29) mmol/L Anion Gap 14 (12-20) BUN 22 H (9-16) mg/dL Creatinine 1.14 (0.5-1.4) mg/dL Estim Creat Clear Calc 105.9 Estimated GFR > 60 POC Glucose 129 H (60-115) mg/dL Random Glucose 141 H (60-115) mg/dL Calcium 9.6 (8.4-10.2) mg/dL Total Bilirubin 0.9 (0.0-1.0) mg/dL AST 36 (5-37) U/L ALT 35 (0-40) U/L Alkaline Phosphatase 85 (39-117) U/L Troponin I High Sens < 2.7 (<3.5-35.0) ng/L Total Protein 6.9 (6.5-8.0) g/dL Albumin 4.2 (3.5-5.0) g/dL Urine Opiates Screen Not Detected (Not Detect) Ur Buprenorphine Scrn Not Detected (Not Detect) ng/mL Ur Oxycodone Screen Not Detected (Not Detect) ng/mL Urine Methadone Screen Not Detected (Not Detect) ng/mL Urine Fentanyl Screen Not Detected (Not Detect) Ur Barbiturates Screen Not Detected (Not Detect) Ur Phencyclidine Scrn Not Detected (Not Detect) Ur Amphetamines Screen Not Detected (Not Detect) U Benzodiazepines Scrn Not Detected (Not Detect) Urine Cocaine Screen Not Detected (Not Detect) U Marijuana (THC) Screen Not Detected (Not Detect) Ethyl Alcohol < 10 mg/dL Independent Interpretation I performed an independent interpretation of an: EKG Critical Care Time Critical Care Time Critical Care Time: Yes Total Critical Care Time: 35 Attestation: I have personally provided critical care time. Time includes review of lab data, radiology results, discussion with consultants, and monitoring for potential decompensation. Intervention performed as documented. Discharge Plan Discharge Clinical Impression: Syncope Patient Disposition: Home, Self-Care Instructions: Syncope (ED) Additional Instructions: Please follow-up with your primary care physician tomorrow. If you have any worsening or new symptoms, please return to the emergency room or call 911 Prescriptions: No Action (DME) FreeStyle Lite Strips Strip See Rx Instructions .Route Qty: 100 0RF Rx Instructions: Test Daily (DME) lancets [BD Ultra-Fine II Lancets] 30 gauge misc See Rx Instructions .Route Qty: 100 0RF Rx Instructions: Test Daily (DME) blood-glucose meter [FreeStyle Lite Meter] Kit See Rx Instructions .Route Qty: 1 0RF Rx Instructions: Test Daily metformin 500 mg tablet 500 mg PO BID Qty: 180 8RF atorvastatin 10 mg tablet 10 mg PO BEDTIME Qty: 90 8RF pyridoxine (vitamin B6) 100 mg tablet 100 mg PO DAILY 90 Days Qty: 90 1RF Mounjaro 10 mg/0.5 mL pen injector 10 mg subcut QWEEK 28 Days Qty: 2 3RF lisinopril 5 mg tablet 5 mg PO DAILY 90 Days Qty: 90 1RF magnesium oxide 500 mg Tablet 500 mg PO DAILY zinc 50 mg Tablet 50 mg PO DAILY Mounjaro 12.5 mg/0.5 mL pen injector 12.5 mg subcut QWEEK 28 Days Qty: 2 3RF lorazepam 0.5 mg tablet 0.5 mg PO DAILY PRN (Reason: anxiety) 5 Days Qty: 5 0RF Print Language: Bolivian
[2025-01-17 01:19] VITALS: O2SAT 98
[2025-01-17 01:31] LABS: Cannabinoid Screen Urine Not Detected (Not Detect)
[2025-01-17 01:50] LABS: D Dimer High Sensitivity < 150 NG/ML
[2025-01-17 02:39] VITALS: BP 105/70; PULSE 84; RESP 16; TEMP 36.5; O2SAT 98
[2025-01-17 02:47] VITALS: BP 105/70; PULSE 84; RESP 16; TEMP 36.5; O2SAT 98
--- NOTE | 2025-01-17 02:47 | PC.NURSE ---
reviewed discharge instructions with pt. pt verbalized understanding. no sign of distress.
== END 2025-01-17 02:48 | disposition home or self-care (01) ==
PROVIDERS: Emergency Provider Emergency Medicine; PCP Physician Assistant
DX: R55 Syncope and collapse (principal); R25.2 Cramp and spasm; E11.9 Type 2 diabetes mellitus without complications; Z79.899 Other long term (current) drug therapy; Z51.81 Encounter for therapeutic drug level monitoring; Z87.891 Personal history of nicotine dependence; Z79.84 Long term (current) use of oral hypoglycemic drugs
CPT/HCPCS: 36415; 80053; 80307; 82947; 84484; 85025; 85379; 93005; 99284; 99285

== ENCOUNTER → 2025-01-16 22:43 | Outpatient (BNV) | payer BC, SELFPAY | PROVIDERS: Emergency Provider Emergency Medicine; PCP Physician Assistant; Visit Provider Internal Medicine | DX: R55 Syncope and collapse (principal) | CPT/HCPCS: 93010 ==

== ENCOUNTER 2025-01-29 13:48 | Outpatient (AMB) | payer BC, SELFPAY ==
--- NOTE | 2025-01-29 14:01 | A.OFFPC_ITS ---
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 Accompanied by: Self / Same As Patient Allergies Penicillins (PENICILLINS) Allergy (Intermediate, Verified 01/29/25 14:28) UNKNOWN Medication List - Last Reconciled 01/29/25 by Antonio uTttle PA-C atorvastatin 10 mg PO BEDTIME blood sugar diagnostic (FreeStyle Lite Strips) Test Daily blood-glucose meter (FreeStyle Lite Meter kit) Test Daily lancets (BD Ultra-Fine II Lancets) Test Daily lisinopril 5 mg PO DAILY 90 days lorazepam 0.5 mg PO DAILY PRN 5 days magnesium oxide 500 mg PO DAILY metformin 500 mg PO BID pyridoxine (vitamin B6) 100 mg PO DAILY 90 days tirzepatide (Mounjaro) 10 mg (0.5 mL) subcut QWEEK 4 weeks Held on 12/04/24. Instructions: Doctor's Order tirzepatide (Mounjaro) 12.5 mg (0.5 mL) subcut QWEEK 4 weeks zinc 50 mg PO DAILY Tobacco use date assessed: 12/04/24 Dental Screening Dental Screen Date: 08/01/24 [facility] 12/28 syncope HPI Details The patient is a 54 year old individual presenting for an ER follow-up after a syncopal episode. The patient reports dozing off on the sofa and upon attempting to get up, experienced a severe cramping pain in the inner thigh, described as a charley horse. The pain became increasingly severe, and the patient developed diaphoresis and dizziness, subsequently losing consciousness. The ER workup included blood work and a urine sample, with a negative EKG for myocardial infarction or stroke, and a negative D-dimer test for blood clots. The syncopal episode was attributed to vasovagal syncope secondary to severe pain. The patient has experienced this severe leg pain before but was previously able to walk it off. The patient also reports associated numbness in the same leg, describing the sensation as the leg falling asleep, and noted hand numbness during the recent episode. The patient has a history of sciatica in the lower back and shoulder blade, which was treated with online physical therapy during the pandemic. [facility] Medical History Diabetes mellitus Pure hypercholesterolemia Benign essential hypertension Surgical History History of neck surgery Hx of colonoscopy Family History Mother Diabetes CHF (congestive heart failure) High blood pressure Father No problems noted. Other Substance abuse Social History Household Members: Family Housing: House Do you presently have visiting nurse or other home services: No Alcohol intake: former Patient Tobacco Use Status: Former Tobacco user Tobacco use type: Cigarette e-Cigarette/Vaping Use: Never Used Second Hand Smoke Exposure: Yes service: No Current occupational status: employed Current occupation: [employer] Cognitive needs: No Hearing needs: No Vision needs: Yes (Glasses) Questionnaire Thrive Questionnaire Date Thrive assessed: 07/31/24 I am a: Patient What is your living situation today?: I have a steady place to live Within the past 12 months, did the food you bought not last and you didn't have the money to get more?: Never true Within the past 12 months, did you worry whether your food would run out before you got money to buy more?: Never true Do you have trouble paying for medicines?: No Do you have trouble getting transportation to medical appointments?: No Do you have trouble paying your heating and electricity bill?: No Do you have trouble taking care of your child, family member or friend?: No Do you have trouble with day-to-day activities such as bathing, preparing meals, shopping, managing finances, etc.?: No Are you currently unemployed and looking for a job?: No Are you interested in more education?: No Please select the resources that you would like help with: None Currently or been in a relationship where the following occur: No concerns reported THRIVE Score: 0 YAMILE-7 AMB Questionnaire YAMILE-7 Date YAMILE - 7 assessed: 08/01/24 Source: Developed by Drs. Josse Ortiz, Eda Patrick, Danilo Dumas and colleagues, with an educational alok from [employer]. Review of Systems Const Denies headache(s) Eyes Denies loss of vision ENT Denies vertigo, Denies dizziness, Denies headache(s) and Denies sore throat Card Denies chest pain, Denies leg edema and Denies lightheadedness Resp Denies cough, Denies hemoptysis and Denies wheezing GI Denies abdominal pain, Denies melena, Denies constipation, Denies diarrhea and Denies vomiting Denies dysuria, Denies urinary frequency and Denies urinary urgency Musc Denies arthralgias, Denies joint swelling, Denies numbness and Denies tingling Neuro Denies Abnormal speech present, Denies behavioral changes, Denies vertigo, Denies dizziness, Denies headache(s), Denies loss of vision, Denies memory loss, Denies numbness and Denies tingling Psych Denies anxiety, Denies behavioral changes, Denies depression, Denies memory loss and Denies panic attacks Mohan/Lymph Denies easy bleeding and Denies easy bruising Aller/Immun Denies wheezing Physical exam (Primary Care) Vital Signs: Last Vital Signs Temp 97.1 F 01/29/25 14:04 Pulse 81 01/29/25 14:04 Resp 14 01/29/25 14:04 BP 138/82 01/29/25 14:04 Pulse Ox 98 01/29/25 14:04 Oxygen Delivery Method Room Air 01/29/25 14:04 BMI result Body Mass Index 42.1 Tobacco/Smoking Status: Tobacco use Status Tobacco use date assessed 12/04/24 01/29/25 14:07 Patient Tobacco Use Status Former Tobacco user 01/29/25 14:07 Tobacco use type Cigarette 01/29/25 14:07 e-Cigarette/Vaping Use Never Used 01/29/25 14:07 Thrive Assessment: Date of Thrive Assessment Date Thrive assessed 07/31/24 01/29/25 14:07 Currently or been in a relationship where the following occur: No concerns reported Const General: healthy appearing, no acute distress, alert and awake Nutritional Appearance: well nourished Orientation/consciousness: oriented to person, oriented to place and oriented to time HENMT Ears: TM's normal bilaterally General nose exam: Normal nasal mucous membranes and turbinates present Eyes Conjunctivae: conjunctivae normal Sclerae: sclerae normal Pupils: Equal, round and reactive pupils present Neck Neck: Yes no lymphadenopathy and Yes no JVD Thyroid: Thyroid normal Carotids: no bruits Resp Effort & Inspection: normal respiratory effort and not tachypneic Auscultation: no crackles, no rales, no rhonchi and no wheezes Cardio Rate: regular rate Rhythm: regular rhythm Heart sounds: no murmurs and normal S1 and S2 GI Palpation (GI): Soft to palpation, nontender, no hepatomegaly and no splenomegaly Auscultation: normal bowel sounds Skin General skin exam: no rashes or lesions noted and dry skin Neuro General: oriented to person, oriented to place and oriented to time Cranial nerves: Yes Equal, round and reactive pupils present Speech: No Abnormal speech present Gait exam (Neuro): Normal gait present Motor exam (neuro): no tremor noted Extrem Right upper extremity: full ROM Left upper extremity: full ROM Right lower extremity: full ROM; no edema Left lower extremity: full ROM; no edema Psych Mental Status: mental status grossly normal Speech and movement: Normal speech and movement present Affect: normal affect Attitude: cooperative Thought process: Normal thought process present Coding Level of Care Code Est Pt Level 4 (84075) Diagnoses Syncope and collapse R55 Hamstring tendinitis of left thigh M76.892 Low libido R68.82 Lumbar radiculopathy M54.16 Pure hypercholesterolemia E78.00 Assessment & Plan Assessment & Plan (1) Syncope and collapse: Code(s): R55 - Syncope and collapse Category: Medical Plan: The primary assessment is vasovagal syncope secondary to severe leg pain. To rule out a cardiac etiology, a cardiac stress test will be ordered. Of note evaluation at ER with a essentially normal with tropes negative and EKG normal sinus rhythm. (2) Hamstring tendinitis of left thigh: Code(s): M76.892 - Other specified enthesopathies of left lower limb, excluding foot Category: Medical Plan: Unclear if patient has left hamstring tendinitis related to statin therapy. Will try to reduce the potency of his statin. Will try physical therapy for his lower extremity (3) Low libido: Code(s): R68.82 - Decreased libido Category: Medical Plan: Patient interested in checking his testosterone level as he has had low libido. (4) Lumbar radiculopathy: Code(s): M54.16 - Radiculopathy, lumbar region Category: Medical Plan: For the recurrent, severe inner thigh cramps and associated numbness, a referral will be placed for physical therapy to work on stretching exercises. Additionally, an X-ray of the lumbar spine will be ordered to evaluate for degenerative changes that could be contributing to the patient's leg symptoms. (5) Pure hypercholesterolemia: Code(s): E78.00 - Pure hypercholesterolemia, unspecified Category: Medical Plan: Unclear if patient has lower extremity cramp are associated with statin. Will d iscontinue atorvastatin and try alternative simvastatin 5 mg though potency to help reduce his cardiovascular risk as well. Goal LDL is to be below 100 Orders: Orders Testosterone, Free/Total 01/29/25 R68.82 - Decreased libido PT Evaluation and Treatment 01/29/25 M76.892 - Other specified enthesopathies of left lower limb, excluding foot CA stress test 01/29/25 R55 - Syncope and collapse XR lumbar spine 4V min 01/29/25 M54.16 - Radiculopathy, lumbar region Medications: New simvastatin 5 mg PO DAILY 30 tabs 3RF 30 days E78.00 - Pure hypercholesterolemia, unspecified Discontinued atorvastatin Discontinued Reason: Doctor's Order 10 mg PO BEDTIME 90 tabs 8RF
[2025-01-29 14:04] VITALS: BP 138/82; PULSE 81; RESP 14; TEMP 36.2; O2SAT 98; BMI 42.1
--- OUTSIDE RECORDS SUMMARY | 2025-01-29 16:32 | XMS_ITS | Patient Health Record ---
[facility] Organization [facility] Address [address] [place] [address] Care Team Providers Care Third Rigger Name Role Phone Humble MARTINEZ, [place] Primary Care Provider Erin Xiao Unavailable [phone] Antonio Tuttle Unavailable Unavailable Allergies Allergen (clinical [...] Problem Type II diabetes mellitus without complication ([id number]) Type 2 diabetes mellitus without complication, without long-term current use of insulin (E11.9) Active confirmed Plan Of Treatment No Information Insurance Providers Payer Name Payer Address Payer Phone Subscriber Number Group Number Insured Name Patient Relationship to Insured Coverage Start Date Coverage End Date Ever Espinosa [address] [place] [address] [id number] Yo Rendon Self - patient is the insured Medical (General) History Medical History History ICD Code CAD (Cholesterol) Diabetes mellitus Headaches/Migraines High blood pressure Chicken pox Surgical History Surgery Date(Month/Year)
== END 2025-01-29 14:52 | disposition home or self-care (01) ==
LOC: HO.HMCH 13:48
PROVIDERS: PCP Physician Assistant; Visit Provider Physician Assistant
DX: R55 Syncope and collapse (principal); M76.892 Other specified enthesopathies of left lower limb, excluding foot; R68.82 Decreased libido; M54.16 Radiculopathy, lumbar region; E78.00 Pure hypercholesterolemia, unspecified